=== PATIENT | male | born 1955 | race Caucasian/White ===

== ENCOUNTER → 2017-08-09 | Outpatient (CLI) | payer OTHER, SELFPAY | PROVIDERS: Visit Provider Internal Medicine | DX: I50.9 Heart failure, unspecified (principal); I25.10 Atherosclerotic heart disease of native coronary artery without angina pectoris; I42.9 Cardiomyopathy, unspecified | CPT/HCPCS: 36415; 80048 ==

== ENCOUNTER 2017-08-18 08:30 | Outpatient (RCR) | payer OTHER, SELFPAY | END 2017-08-18 23:59 | LOC: PT 08:30 | PROVIDERS: Visit Provider Internal Medicine | DX: Z95.5 Presence of coronary angioplasty implant and graft (principal) | CPT/HCPCS: 93798 ==

== ENCOUNTER → 2017-08-21 08:52 | Outpatient (CLI) | payer OTHER, SELFPAY ==
--- NOTE | 2017-08-21 09:02 | CA_ITS ---
PROCEDURE: 2-D M-mode and color Doppler study INDICATIONS FOR THE TEST: Chest pain COPD Heart Murmur Tobacco Smoking Palpitations Fatigue Syncope Edema HypertensionXDiabetes MellitusX Rheumatic Fever SOB SIMMONS Obesity HyperlipidemiaX Family History HD Additional History CAD,CM ISCHEMIC,LIFE VEST,PERICARDIAL EFF NOTED PATIENT INFORMATION HEIGHT: 68 WEIGHT:217 GENDER: Male B/P:126/70 2-D/M-MODE INTERPRETATION: 2-D MEASUREMENTS OBSERVED VALUES IN CMS Right Ventricular Dimension (RVDd) 3.1 Interventricular Septum (Thickness)(IVsd) 1.2 Left Ventricular Internal Dimensions(LVIDd) 5.1 Left Ventricular Posterior Wall (Thickness)(LVPWd) 1.2 Aortic Root 3.6 Aortic Cusp Separation 1.9 Left Atrial Dimensions (LAD) 4.3 2D 1. Left atrium is mildly enlarged, left ventricle is normal size, there is mild concentric left ventricular hypertrophy present, visually estimated ejection fraction approximately 40%, there is marked hypokinesis involving the inferolateral, posterolateral wall. 2. The right atrium and right ventricle are relatively normal size and function. 3. The aortic valve is minimally thickened and fibrosed leaflet continue to display good mobility. 4. The mitral and tricuspid valve leaflets are minimally thickened. 5. The pulmonic valve is poorly visualized. 6. There is moderate to large size pericardial effusion noted. DOPPLER INTERROGATION: Doppler interrogation of the aortic, mitral and tricuspid valvular presence of mild aortic, mild mitral and tricuspid regurgitation, tricuspid regurgitant jet velocity is insufficient for calculation of the right ventricular systolic pressure, diastolic parameters are inconclusive. Inferior vena cava is not well visualized. The mitral inflow and tricuspid inflow velocities are not adequately obtained to determine ventricular interdependence or tamponade physiology. If clinically indicated repeat study with better Doppler technique is recommended. CONCLUSION: 1. Mildly enlarged left atrium, normal left ventricular size, mild concentric left ventricular hypertrophy, visually estimated ejection fraction 40% with multiple segmental wall motion abnormality described above, diastolic parameters are inconclusive. 2. Mild aortic, mild mitral and tricuspid regurgitation. 3. Moderate to large size pericardial effusion noted, the Doppler interrogation is suboptimal to determine tamponade physiology, if clinically indicated repeat study with better Doppler technique is recommended.
== END ==
PROVIDERS: PCP Family Medicine; Visit Provider Internal Medicine
DX: I42.8 Other cardiomyopathies (principal); I25.10 Atherosclerotic heart disease of native coronary artery without angina pectoris; I10 Essential (primary) hypertension; E78.5 Hyperlipidemia, unspecified
CPT/HCPCS: 93306

== ENCOUNTER → 2017-11-17 08:27 | Outpatient (CLI) | payer OTHER, SELFPAY ==
--- NOTE | 2017-11-17 08:29 | CA_ITS ---
PROCEDURE: 2-D M-mode and color Doppler study INDICATIONS FOR THE TEST: Chest pain COPD Heart Murmur Tobacco Smoking Palpitations Fatigue Syncope Edema HypertensionXDiabetes MellitusX Rheumatic Fever SOBXDOE Obesity HyperlipidemiaX Family History HD Additional History CM PATIENT INFORMATION HEIGHT: 68 WEIGHT:222 GENDER: Male B/P:133/82 2-D/M-MODE INTERPRETATION: 2-D MEASUREMENTS OBSERVED VALUES IN CMS Right Ventricular Dimension (RVDd) 3.1 Interventricular Septum (Thickness)(IVsd) 1.2 Left Ventricular Internal Dimensions(LVIDd) 5.7 Left Ventricular Posterior Wall (Thickness)(LVPWd) 1.4 Aortic Root 3.8 Aortic Cusp Separation 2.0 Left Atrial Dimensions (LAD) 4.1 2D 1. Left atrium is mildly enlarged, left ventricle is normal size, there is mild concentric left ventricular hypertrophy, visually estimated ejection fraction of 45% with no obvious regional wall motion abnormality. 2. The right atrium and right ventricle are mildly enlarged with normal contractility 3. The aortic valve is minimally thickened and fibrosed. 4. The mitral valve has mitral annular calcification, there is no mitral stenosis 5. The pulmonic valve is not well visualized. 6. The tricuspid valve is grossly normal. 7. No significant pericardial effusion noted. DOPPLER INTERROGATION: Doppler interrogation of the aortic, mitral and tricuspid valve reveals presence of mild aortic, mild mitral and tricuspid regurgitation, tricuspid regurgitant jet velocity is insufficient for calculation of the right ventricular systolic pressure, grade 1 diastolic dysfunction seen with tissue Doppler evidence of raised left atrial pressure. CONCLUSION: 1. Mildly enlarged left atrium, normal left ventricular size, mild concentric left ventricular hypertrophy, visually estimated ejection fraction 45% with no obvious regional wall motion abnormality, grade 1 diastolic dysfunction seen with tissue Doppler evidence of raised left atrial pressure. 2. Mildly enlarged right ventricle with normal contractility. 3. Mild aortic, mild mitral and tricuspid regurgitation 4. No significant pericardial effusion noted.
== END ==
PROVIDERS: PCP Family Medicine; Visit Provider Internal Medicine
DX: I25.5 Ischemic cardiomyopathy (principal); I25.10 Atherosclerotic heart disease of native coronary artery without angina pectoris; I50.23 Acute on chronic systolic (congestive) heart failure; I10 Essential (primary) hypertension; E78.4 Other hyperlipidemia; R06.02 Shortness of breath
CPT/HCPCS: 93306

== ENCOUNTER → 2017-12-26 12:13 | Outpatient (CLI) | payer OTHER, SELFPAY ==
[2017-12-26 13:15] VITALS: BP 140/90; BP 150/93; PULSE 74; PULSE 95; RESP 16; RESP 22; O2SAT 94; O2SAT 95
[2017-12-26 13:40] VITALS: PULSE 73; PULSE 78
== END ==
PROVIDERS: PCP Family Medicine; Visit Provider Internal Medicine
DX: R06.00 Dyspnea, unspecified (principal)
CPT/HCPCS: 94060; 94618; 94640; 94726; 94729

== ENCOUNTER → 2018-01-01 15:33 | Outpatient (POV) | payer OTHER, SELFPAY | PROVIDERS: PCP Family Medicine; Visit Provider Specialist | DX: R20.0 Anesthesia of skin (principal) | CPT/HCPCS: 95886; 95909 ==

== ENCOUNTER → 2018-02-07 07:06 | Outpatient (CLI) | payer BC, SELFPAY ==
[2018-02-07 08:33] LABS: Basophils # 0.1 K/mm3 (0-0.2); Basophils % 0.9 % (0.1-2.0); Eosinophils # 0.4 K/mm3 (0.0-0.4); Eosinophils % 5.6 % (0.1-12.0); Hematocrit 57.4 % (42.0-52.0); Lymphocytes # 1.3 K/mm3 (0.7-4.5); Lymphocytes % 20.8 K/mm3 (10-50); Mean Corpuscular HGB Conc 31.5 g/dL (31.8-35.4); Mean Corpuscular Hemoglobin 28.4 pg (27.0-31.2); Mean Platelet Volume 8.8 fl (7.4-10.4); Monocytes # 0.6 K/mm3 (0.1-1.0); Monocytes % 9.2 % (1.7-9.3); Neutrophils # 3.9 K/mm3 (1.8-7.8); Neutrophils % 63.5 % (37.0-80.0); Platelet Count 184 K/mm3 (142-424); Red Blood Count 6.37 M/mm3 (4.60-6.20); Red Cell Distribution Width 14.5 % (11.5-17.5); White Blood Count 6.2 K/mm3 (4.8-10.8)
[2018-02-07 11:06] LABS: Hemoglobin 18.2 g/dL (14.1-18.0)
[2018-02-07 11:12] LABS: Alanine Aminotransferase 28 U/L (12-78); Albumin Level 3.3 gm/dL (3.4-5.0); Albumin/Globulin Ratio 1.1 (1.1-1.8); Alkaline Phosphatase 89 U/L (46-116); Anion Gap 9.7 mEq/L (5-15); Aspartate Amino Transferase 16 U/L (15-37); Bilirubin,Total 0.8 mg/dL (0.2-1.0); Blood Urea Nitrogen 18 mg/dL (7-18); Calcium 8.7 mg/dL (8.5-10.1); Carbon Dioxide 30 mmol/L (21.0-32.0); Chloride 105 mmol/L (98-107); Chol/HDL Ratio 3.3 (1-3.5); Cholesterol 127 mg/dL (140-200); Creatinine,Serum 0.72 mg/dL (0.70-1.30); Estimated Glomerular Filt Rate 110 ml/min (>60); GFR (African American) 133 ML/MIN (>60); Glucose 89 mg/dL (74-106); HDL Cholesterol 38 mg/dL (27-67); LDL Cholesterol 78 mg/dL (0-130); Potassium 4.7 mmoL/L (3.5-5.1); Prostate Specific Ag Screen 1.3 ng/mL (0.0-4.0); Sodium 140 mmol/L (136-145); Total Protein,Serum 6.3 gm/dL (6.4-8.2); Triglycerides 55 mg/dL (30-200); VLDL Cholesterol 11 mg/dL (0-40)
[2018-02-08 10:15] LABS: Creatinine, Urine 55.4 mg/dL (Not Estab.)
[2018-02-08 13:59] LABS: Microalbumin, Urine 1486.7 ug/mL (Not Estab.)
== END ==
PROVIDERS: PCP Family Medicine; Visit Provider Family Medicine
DX: E11.9 Type 2 diabetes mellitus without complications (principal); I10 Essential (primary) hypertension; E78.5 Hyperlipidemia, unspecified; I50.9 Heart failure, unspecified; Z12.5 Encounter for screening for malignant neoplasm of prostate
CPT/HCPCS: 36415; 80053; 80061; 82043; 82570; 83036; 85025; G0103

== ENCOUNTER → 2018-02-09 07:04 | Outpatient (CLI) | payer BC, SELFPAY ==
[2018-02-09 11:06] LABS: Thyroid Stimulating Hormone 2.71 uIU/ml (0.358-3.740)
== END ==
PROVIDERS: Visit Provider Family Medicine
DX: Z12.5 Encounter for screening for malignant neoplasm of prostate (principal); E11.9 Type 2 diabetes mellitus without complications; I10 Essential (primary) hypertension; E78.5 Hyperlipidemia, unspecified; I50.9 Heart failure, unspecified
CPT/HCPCS: 36415; 84443

== ENCOUNTER → 2018-03-15 09:37 | Outpatient (CLI) | payer BC, SELFPAY ==
--- NOTE | 2018-03-15 09:45 | XR_ITS ---
XR knee RT 3V HISTORY: ITS.REASON: ACUTE RT KNEE PAIN ORDERING PHYSICIAN: Alejo Busby MD PATIENT AGE: 62 years COMPARISON: None FINDINGS: Severe osteoarthritic changes involve the lateral compartment and patellofemoral joint with decrease in the joint space and osteophyte formation. Prominent osteophytes are present at the distal femur and posterior patella as well as the proximal tibia laterally. Subarticular cystic changes involve the lateral tibial plateau laterally at 2.7 cm. There is increased density in the suprapatellar region consistent with knee joint effusion. There are moderate osteoarthritic changes of the medial compartment. Mild chondrocalcinosis is present of the menisci. There is a 17 mm calcific density in the posterior popliteal fossa region laterally may be due to a loose articular body or synovial osteochondroma. No acute fracture or dislocation IMPRESSION: 1. Severe osteoarthritis with knee joint effusion and prominent osteophyte formation and chondrocalcinosis. 2. Subarticular cystic change along the lateral aspect of the proximal tibia 3. Suspected suprapatellar effusion and loose intra-articular body/synovial osteochondroma
== END ==
PROVIDERS: PCP Family Medicine; Visit Provider Family Medicine
DX: M25.561 Pain in right knee (principal)
CPT/HCPCS: 73562

== ENCOUNTER → 2018-03-28 09:45 | Outpatient (CLI) | payer BC, SELFPAY ==
[2018-03-28 10:05] LABS: Basophils % 0.6 % (0.1-2.0); Eosinophils # 0.5 K/mm3 (0.0-0.4); Eosinophils % 7.2 % (0.1-12.0); Hematocrit 52.1 % (42.0-52.0); Hemoglobin 17.2 g/dL (14.1-18.0); Lymphocytes # 1.5 K/mm3 (0.7-4.5); Lymphocytes % 22.1 K/mm3 (10-50); Mean Corpuscular HGB Conc 32.9 g/dL (31.8-35.4); Mean Corpuscular Hemoglobin 30.4 pg (27.0-31.2); Mean Corpuscular Volume 92.4 fl (80-94); Monocytes # 0.6 K/mm3 (0.1-1.0); Monocytes % 9.2 % (1.7-9.3); Neutrophils # 4.1 K/mm3 (1.8-7.8); Neutrophils % 60.8 % (37.0-80.0); Platelet Count 193 K/mm3 (142-424); Red Blood Count 5.64 M/mm3 (4.60-6.20); Red Cell Distribution Width 14.5 % (11.5-17.5); White Blood Count 6.7 K/mm3 (4.8-10.8)
== END ==
PROVIDERS: Visit Provider Physician Assistant
DX: I25.10 Atherosclerotic heart disease of native coronary artery without angina pectoris (principal); I25.5 Ischemic cardiomyopathy; I50.20 Unspecified systolic (congestive) heart failure
CPT/HCPCS: 36415; 85025

== ENCOUNTER → 2018-08-15 06:18 | Outpatient (CLI) | payer BC, SELFPAY ==
--- NOTE | 2018-08-15 06:25 | NM_ITS ---
CARDIOLITE SPECT MYOCARDIAL PERFUSION SCAN, REST AND STRESS: EXERCISE STRESS [facility] REVIEW QGS EF AND WALL MOTION EVALUATION: QPS - PERFUSION EVALUATION HISTORY: Chest pain, SOB, Fatigue, DM, CAD, Hx of [place] DOSE: 10.10 mCi technetium 99m mibi intravenously at rest followed by 32.2 mCi technetium 99m mibi following the intravenous ministration of 0.4 mg of Lexiscan. Resting blood pressure is 144/87. Stress blood pressure 144/90. FINDINGS: Ejection fraction is calculated to be 35%. There is global hypokinesia. A moderate sized reversible defect is present within the apex extending into the anterior wall. A moderate-sized reversible defect also involves the lateral wall inferiorly. A large defect is present involving the inferior wall with some mild reversibility along the inferolateral region. Fixed decrease activity is noted in the inferior wall toward the apex and in the lateral aspect of the myocardium. IMPRESSION: 1. Low ejection fraction of 35% with global hypokinesia 2. The findings consistent with ischemia with reversible defect in the apex extending into the anterior wall and reversible defect involving the lateral wall which extends into the apex. 3. Large defect in the inferior wall consistent with an area of infarction which shows some reversibility along its inferolateral margin.
--- NOTE | 2018-08-15 07:05 | HMH.ITSHM ---
Current Home Medications as stated by this patient Krish Reji Montes or food service sales representatives. []TOUERIC SYNJARDY GABAPENTIN ATORVASTATIN CLOPIDOGREL ASA CARVEDILOL
== END ==
PROVIDERS: PCP Family Medicine; Visit Provider Internal Medicine
DX: I20.9 Angina pectoris, unspecified (principal); I25.10 Atherosclerotic heart disease of native coronary artery without angina pectoris; I25.5 Ischemic cardiomyopathy; R06.02 Shortness of breath; E78.49 Other hyperlipidemia
CPT/HCPCS: 78452; 93017; 93270; A9502; J2785

== ENCOUNTER 2018-08-31 08:02 | Outpatient (RCR) | payer BC, SELFPAY | END 2018-11-07 08:38 | disposition home or self-care (01) | LOC: PT 08:02 | PROVIDERS: Visit Provider Internal Medicine | DX: I11.9 Hypertensive heart disease without heart failure (principal); I25.10 Atherosclerotic heart disease of native coronary artery without angina pectoris; I25.5 Ischemic cardiomyopathy | CPT/HCPCS: 93798 ==

== ENCOUNTER → 2018-09-25 07:44 | Outpatient (CLI) | payer BC, SELFPAY ==
--- NOTE | 2018-09-25 07:46 | NM_ITS ---
History and Indications: Coronary artery disease, diabetes, family history. Procedure: Patient exercised on Vincent protocol 7 minutes and 45 seconds, resting heart rate was 63 bpm resting blood pressure 163/90, with exercise maximum heart rate achieved was 118 bpm which is equal to 76% of the maximum] heart rate and a blood pressure was 210/90. Test was started due to shortness of breath and chest pressure. Patient has good exercise capacity achieved 10.1mets of workload on treadmill, the blood pressure response to exercise was hypertensive, patient did not achieve the target heart rate. Electrocardiogram: Resting echocardiogram showed sinus rhythm nonspecific ST-T changes consider subendocardial ischemia, with exercise there is less than 1.[address] segment depression noted from the baseline EKG. Occasional premature ventricular complexes were also present. The EKG portion of the exercise Myoview is nondiagnostic due to baseline abnormal EKG and patient not achieving the target heart rate. Cardiac stress and resting SPECT images: Cardiac stress and resting SPECT images were obtained using technetium 99 Myoview 32.2 mCi stress and 10.5 mCi at rest. Gated SPECT further analysis of segmental wall motion and calculation of the ejection fraction also done. Cardiac stress and resting SPECT images show decreased tracer activity in the anterior, anteroapical and anterolateral wall which improves on the resting images suggestive of reversible ischemia, there is a partial reversible defect involving the inferior and inferolateral wall consistent with mixed ischemia and scar. There is transient ischemic dilatation of the left ventricle seen. Computer derived ejection fraction is 39% with moderate hypokinesis involving the inferolateral and inferolateral wall. Right ventricle is normal size and contractility. Conclusion: 1. The EKG portion of the exercise Myoview is nondiagnostic due to baseline abnormal EKG and patient not achieving the target heart rate, patient has good exercise capacity achieved 10.1mets of workload on treadmill, the blood pressure response to exercise was hypertensive, test was started due to shortness of breath. 2. Scintigraphic evidence of reversible ischemia involving the anteroapical, apex and anterolateral wall, partially reversible fixed defect involving the inferolateral and inferior wall, there is transient ischemic dilatation of the left ventricle, computer derived ejection fraction is 39% with multiple segmental wall motion abnormality described above, right ventricle is normal size and contractility. 3. Abnormal exercise Myoview study.
--- NOTE | 2018-09-25 08:16 | HMH.ITSHM ---
Current Home Medications as stated by this patient Krish Reji Montes or brewery representative. []SACUBITRIL INSULIN CLOPIDOGREL CARVEDILOL CANAGLIFLOZIN ATORVASTATIN ASA
== END ==
PROVIDERS: PCP Family Medicine; Visit Provider Internal Medicine
DX: R06.02 Shortness of breath (principal); R53.83 Other fatigue; I25.5 Ischemic cardiomyopathy; I50.23 Acute on chronic systolic (congestive) heart failure; E11.9 Type 2 diabetes mellitus without complications; E78.49 Other hyperlipidemia; I10 Essential (primary) hypertension; I25.10 Atherosclerotic heart disease of native coronary artery without angina pectoris
CPT/HCPCS: 78452; 93017; A9502

== ENCOUNTER → 2018-10-15 07:10 | Outpatient (CLI) | payer BC, SELFPAY ==
[2018-10-15 08:02] LABS: Anion Gap 13.1 mEq/L (5-15); Blood Urea Nitrogen 17 mg/dL (7-18); Calcium 9.1 mg/dL (8.5-10.1); Carbon Dioxide 32 mmol/L (21.0-32.0); Chloride 104 mmol/L (98-107); Creatinine,Serum 1.18 mg/dL (0.70-1.30); Estimated Glomerular Filt Rate 62 ml/min (>60); GFR (African American) 75 ML/MIN (>60); Glucose 143 mg/dL (74-106); Potassium 4.1 mmoL/L (3.5-5.1); Sodium 145 mmol/L (136-145)
== END ==
PROVIDERS: Visit Provider Urology
DX: R06.02 Shortness of breath (principal); E11.9 Type 2 diabetes mellitus without complications; E78.49 Other hyperlipidemia; I10 Essential (primary) hypertension; I11.0 Hypertensive heart disease with heart failure; I25.10 Atherosclerotic heart disease of native coronary artery without angina pectoris; I25.5 Ischemic cardiomyopathy; I50.23 Acute on chronic systolic (congestive) heart failure
CPT/HCPCS: 36415; 80048

== ENCOUNTER → 2018-10-16 07:37 | Outpatient (CLI) | payer BC, SELFPAY ==
--- NOTE | 2018-10-16 07:38 | CA_ITS ---
PROCEDURE: 2-D M-mode and color Doppler study INDICATIONS FOR THE TEST: Chest pain COPD Heart Murmur Tobacco Smoking Palpitations Fatigue Syncope Edema Hypertension+Diabetes Mellitus+ Rheumatic Fever SOB+SIMMONS Obesity Hyperlipidemia+ Family History HD Additional History CAD, CHF, CVA PATIENT INFORMATION HEIGHT: 68 WEIGHT:228 GENDER: Male B/P:147/95 2-D/M-MODE INTERPRETATION: 2-D MEASUREMENTS OBSERVED VALUES IN CMS Right Ventricular Dimension (RVDd) 3.8 Interventricular Septum (Thickness)(IVsd) 1.7 Left Ventricular Internal Dimensions(LVIDd) 4.4 Left Ventricular Posterior Wall (Thickness)(LVPWd) 1.1 Aortic Root 3.7 Aortic Cusp Separation 2.3 Left Atrial Dimensions (LAD) 4.6 2D 1. Left atrium is mildly enlarged, left ventricle is normal size, mild concentric left ventricular hypertrophy, visually estimated ejection fraction approximately 45-50%, there is moderate hypokinesis involving the inferior and inferobasal wall. 2. The right atrium and right ventricle are mildly enlarged with normal contractility. 3. The aortic valve is thickened and calcified leaflet continue to display mobility. 4. The mitral and tricuspid valve are minimally thickened. 5. The pulmonic valve is poorly present. 6. No significant pericardial effusion noted. DOPPLER INTERROGATION: Doppler interrogation of the aortic, mitral and tricuspid valvular presence of mild aortic, mild mitral and tricuspid regurgitation, tricuspid regurgitation jet velocity is inadequate for calculation of the right ventricular systolic pressure, grade 1 diastolic dysfunction seen with tissue Doppler evidence of raised left atrial pressure. CONCLUSION: 1. Mild biatrial enlargement, normal left ventricular size, mild concentric left ventricular hypertrophy, visually estimated ejection fraction of 45-50% with segmental wall motion abnormality described above, grade 1 diastolic dysfunction seen with tissue Doppler evidence of raised left atrial pressure. 2. Mildly enlarged right ventricle with normal contractility. 3. Mild aortic, mild mitral and tricuspid regurgitation 4. No significant pericardial effusion noted.
== END ==
PROVIDERS: PCP Family Medicine; Visit Provider Internal Medicine
DX: R06.02 Shortness of breath (principal); I25.5 Ischemic cardiomyopathy; I50.23 Acute on chronic systolic (congestive) heart failure; E11.9 Type 2 diabetes mellitus without complications; E78.49 Other hyperlipidemia; I10 Essential (primary) hypertension; I11.0 Hypertensive heart disease with heart failure; I25.10 Atherosclerotic heart disease of native coronary artery without angina pectoris; Z79.4 Long term (current) use of insulin; Z79.84 Long term (current) use of oral hypoglycemic drugs; Z87.891 Personal history of nicotine dependence
CPT/HCPCS: 93306

== ENCOUNTER → 2018-11-19 08:41 | Outpatient (CLI) | payer BC, SELFPAY | PROVIDERS: PCP Family Medicine; Visit Provider Nurse Practitioner Family | DX: G47.33 Obstructive sleep apnea (adult) (pediatric) (principal); R40.0 Somnolence; R53.83 Other fatigue; R06.00 Dyspnea, unspecified; I11.9 Hypertensive heart disease without heart failure; I25.10 Atherosclerotic heart disease of native coronary artery without angina pectoris | CPT/HCPCS: 95806 ==

== ENCOUNTER → 2019-03-20 06:59 | Outpatient (CLI) | payer MEDICARE, OTHER, SELFPAY ==
[2019-03-20 08:09] LABS: Alanine Aminotransferase 39 U/L (12-78); Albumin Level 3.6 gm/dL (3.4-5.0); Albumin/Globulin Ratio 1.2 (1.1-1.8); Alkaline Phosphatase 89 U/L (46-116); Anion Gap 11.1 mEq/L (5-15); Aspartate Amino Transferase 13 U/L (15-37); Bilirubin,Total 0.7 mg/dL (0.2-1.0); Blood Urea Nitrogen 19 mg/dL (7-18); Calcium 8.8 mg/dL (8.5-10.1); Carbon Dioxide 29 mmol/L (21.0-32.0); Chloride 104 mmol/L (98-107); Chol/HDL Ratio 3.7 (1-3.5); Cholesterol 138 mg/dL (140-200); Creatinine,Serum 0.92 mg/dL (0.70-1.30); Estimated Glomerular Filt Rate 83 ml/min (>60); GFR (African American) 100 ML/MIN (>60); Globulin 3.1 gm/dl (1.3-3.2); Glucose 74 mg/dL (74-106); HDL Cholesterol 37 mg/dL (27-67); LDL Cholesterol 79 mg/dL (0-130); Magnesium 1.9 mg/dL (1.4-2.2); Phosphorous 2.9 mg/dL (2.4-4.9); Potassium 4.1 mmoL/L (3.5-5.1); Prostate Specific Ag Screen 1.6 ng/mL (0.0-4.0); Sodium 140 mmol/L (136-145); Thyroid Stimulating Hormone 1.96 uIU/ml (0.358-3.740); Total Protein,Serum 6.7 gm/dL (6.4-8.2); Triglycerides 108 mg/dL (30-200); VLDL Cholesterol 22 mg/dL (0-40)
[2019-03-20 09:02] LABS: Hemoglobin A1C 7.4 % (0.0-7.0)
[2019-03-20 16:23] LABS: Creatinine,Urine Random 13 mg/dL (20-320)
[2019-03-22 06:12] LABS: Vitamin B12 265 pg/mL (232-1245)
[2019-03-22 06:13] LABS: Vitamin D 25 Hydroxy 36.9 ng/mL (30.0-100.0)
[2019-03-22 06:14] LABS: Folate 10.5 ng/mL (>3.0); Microalbumin, Urine 207.1 ug/mL (Not Estab.)
== END ==
PROVIDERS: Visit Provider Family Medicine
DX: E11.9 Type 2 diabetes mellitus without complications (principal); R53.83 Other fatigue; E78.5 Hyperlipidemia, unspecified; Z12.5 Encounter for screening for malignant neoplasm of prostate; Z79.4 Long term (current) use of insulin
CPT/HCPCS: 36415; 80053; 80061; 82043; 82570; 82607; 82652; 82746; 83036; 83735; 84100; 84443; G0103

== ENCOUNTER 2019-04-09 11:06 | Inpatient (IN) ==
[2019-04-09 10:14] LABS: Anion Gap 10.3 mEq/L (5-15); Calcium 9.4 mg/dL (8.5-10.1)
[2019-04-09 11:56] LABS: Basophils % 0.4 % (0.1-2.0); Eosinophils # 0.1 K/mm3 (0.0-0.4); Eosinophils % 0.6 % (0.1-12.0); Hematocrit 55.7 % (42.0-52.0); Lymphocytes # 1.2 K/mm3 (0.7-4.5); Lymphocytes % 12.9 % (10-50); Mean Corpuscular HGB Conc 32.4 g/dL (31.8-35.4); Mean Corpuscular Volume 95.5 fl (80-94); Mean Platelet Volume 8.5 fl (7.4-10.4); Monocytes # 0.4 K/mm3 (0.1-1.0); Monocytes % 3.9 % (1.7-9.3); Neutrophils # 7.8 K/mm3 (1.8-7.8); Neutrophils % 82.3 % (37.0-80.0); Platelet Count 235 K/mm3 (142-424); Red Blood Count 5.83 M/mm3 (4.60-6.20); Red Cell Distribution Width 13.8 % (11.5-17.5); White Blood Count 9.5 K/mm3 (4.8-10.8)
--- NOTE | 2019-04-09 13:59 | Progress Note ---
Subjective Date: 04/09/19 Time: 13:55 Principal diagnosis: NSTEMI Interval history: 63-year-old white male with known coronary artery disease for which medical therapy recommended presented to the office today for evaluation of recurrent episodes of severe diaphoresis associated with shortness of breath and weakness. EKG showed no acute change, limited echocardiogram showed ejection fraction 45- 50% but lab work revealed mildly elevated troponin at 0.2. It was felt that the patient has recently suffered a non-ST elevation NH within the last 2 days and had failed outpatient medical therapy for his coronary artery disease. It was decided to send him to the cardiac [facility] to attempt stenting of his diagonal artery in light of his recurrent symptoms and elevated troponin. Patient appeared very pale and weak and was still wet with sweat at the time of office evaluation. Exam Vital signs and Labs for Last 24 Hours: Temp Pulse Resp BP Pulse Ox 98.1 F 54 L 20 185/107 H 100 04/09/19 11:13 04/09/19 11:13 04/09/19 11:13 04/09/19 11:13 04/09/19 11:13 Laboratory Results - last 24 hr 04/09/19 09:45: Sodium 139, Potassium 4.3, Chloride 103, Carbon Dioxide 30, Anion Gap 10.3, BUN 20 H, Creatinine 0.83, Estimated Creat Clear 107, Estimated GFR 93, Est GFR ( Amer) 113, Glucose 85, Calcium 9.4, Troponin I 0.20 H 04/09/19 09:45: B-Natriuretic Peptide 62 04/09/19 11:25: WBC 9.5, RBC 5.83, Hgb 18.0, Hct 55.7 H, MCV 95.5 H, MCH 30.9, MCHC 32.4, RDW 13.8, Plt Count 235, MPV 8.5, Neut % (Auto) 82.3 H, Lymph % (Auto) 12.9, [place] % (Auto) 3.9, Eos % (Auto) 0.6, Baso % (Auto) 0.4, Neut # (Auto) 7.8, Lymph # (Auto) 1.2, [place] # (Auto) 0.4, Eos # (Auto) 0.1, Baso # (Auto) 0.0 I & O for Last 24 hours: Intake & Output 08/2504/08/19 04/09/19 04/10/19 11:59 11:59 11:59 11:59 Weight 228 lb 13.437 oz - *Routine HEENT Exam Head: Present: normocephalic Eye: Present: EOMI, PERRL ENT: Present: mucous membranes moist - *Routine Respiratory Exam Present: CTA bilaterally. Absent: accessory muscle use, rales, rhonchi, wheezes - *Routine Cardiovascular Exam Present: RRR. Absent: murmur, gallop, rubs - *Routine Abdominal Exam Present: soft. Absent: tenderness, distended, guarding - *Routine Extremities Exam Absent: edema, calf tenderness - *Routine Neurological Exam Present: alert, oriented X3, moving all extremities Progress Note: A&P (1) Non-ST elevation NH (NSTEMI) Status: Acute Current Visit: Yes (2) Dyspnea Status: Chronic Current Visit: No (3) Fatigue Status: Chronic Current Visit: No (4) Hyperlipidemia Status: Chronic Current Visit: No (5) Hypertensive disorder Status: Chronic Current Visit: No (6) Ischemic cardiomyopathy Status: Chronic Current Visit: No (7) JARON (obstructive sleep apnea) Status: Chronic Current Visit: No Assessment and Plan for All Diagnoses:: 1. Continue dual antiplatelet therapy with aspirin 81 mg daily and Plavix 75 mg daily 2. Regarding his ischemic cardiomyopathy, continue Entresto 97-103 mg twice daily and Coreg 25 mg twice daily and Lasix 40 mg daily 3. Regarding hyperlipidemia, continue atorvastatin 80 mg daily 4. Observe overnight with tentative plans to discharge home tomorrow if stable.
--- NOTE | 2019-04-09 15:29 | Pharmacy Consult Notes ---
[facility] Pharmacy VTE Monitoring - Patient Demographics Admission date: 04/09/19 Report Date: 04/09/19 Time: 15:29 Allergies/Adverse Reactions: Patient Allergies No Known Allergies Allergy (Verified 04/09/19 08:49) Height: 1.73 m Weight: 102.965 kg Patient Problems: Current Active Problems Non-ST elevation CO (NSTEMI) (Acute) - VTE Risk Labs: VTE Related Lab Results Hgb 18.0 g/dL (14.1-18.0) 04/09/19 11:25 Hct 55.7 % (42.0-52.0) H 04/09/19 11:25 Plt Count 235 K/mm3 (142-424) 04/09/19 11:25 BUN 20 mg/dL (7-18) H 04/09/19 09:45 Creatinine 0.83 mg/dL (0.70-1.30) 04/09/19 09:45 Estimated Creat Clear 107 mL/min (50-200) 04/09/19 09:45 Was VTE Risk Assessment Performed: Yes VTE Score: 3 VTE Risk Level: Low Risk - Prophylaxis VTE Prophylaxis Ordered?: Yes Types of VTE Prophylaxis: TEDS Knee High Location of Applied Device: Bilateral Lower Extremeties
--- NOTE | 2019-04-09 16:50 | Progress Note ---
Internal Medicine - PN: Subj *Date: 04/09/19 *Time: 16:47 Interval history: Called by cardiology today about patient that was seen in their office with a NSTEMI that was going directly to the labor custodian and needed admission for observation after the procedure. Pt reportedly had one stent placed and had several areas treated with balloon angioplasty. He is resting in bed now with family at his side. Exam Vital signs and Labs for Last 24 Hours: Temp Pulse Resp BP Pulse Ox 97.7 F 74 20 110/75 95 04/09/19 14:50 04/09/19 16:00 04/09/19 16:00 04/09/19 16:00 04/09/19 16:00 Laboratory Results - last 24 hr 04/09/19 09:45: Sodium 139, Potassium 4.3, Chloride 103, Carbon Dioxide 30, Anion Gap 10.3, BUN 20 H, Creatinine 0.83, Estimated Creat Clear 107, Estimated GFR 93, Est GFR ( Amer) 113, Glucose 85, Calcium 9.4, Troponin I 0.20 H 04/09/19 09:45: B-Natriuretic Peptide 62 04/09/19 11:25: WBC 9.5, RBC 5.83, Hgb 18.0, Hct 55.7 H, MCV 95.5 H, MCH 30.9, MCHC 32.4, RDW 13.8, Plt Count 235, MPV 8.5, Neut % (Auto) 82.3 H, Lymph % (Auto) 12.9, [place] % (Auto) 3.9, Eos % (Auto) 0.6, Baso % (Auto) 0.4, Neut # (Auto) 7.8, Lymph # (Auto) 1.2, [place] # (Auto) 0.4, Eos # (Auto) 0.1, Baso # (Auto) 0.0 04/09/19 12:26: Activated Clotting Time > 400 H* 04/09/19 13:01: Activated Clotting Time 338 H* 04/09/19 16:09: POC Glucose 148 H I & O for Last 24 hours: Intake & Output 04/06/19 04/07/19 04/08/19 04/09/19 23:59 23:59 23:59 23:59 Intake Total 120 / 120 Balance 120 / 120 Weight 227 lb - Constitutional no acute distress - *Routine HEENT Exam Head: Present: normocephalic Eye: Present: EOMI, PERRL ENT: Present: mucous membranes moist - *Routine Neck Exam Present: supple. Absent: lymphadenopathy - *Routine Abdominal Exam Present: soft. Absent: tenderness - *Routine Extremities Exam Absent: cyanosis, clubbing, edema - *Routine Skin Exam Present: warm. Absent: rash - *Routine Neurological Exam Present: alert, oriented X3 Assessment and Plan (1) Non-ST elevation ID (NSTEMI) Current visit: Yes Status: Acute Category: Medical Code(s): I21.4 - Non-ST elevation (NSTEMI) myocardial infarction (2) Dyspnea Current visit: No Status: Chronic Qualifiers: Dyspnea type: shortness of breath Qualified Code(s): R06.02 - Shortness of breath Category: Medical Code(s): R06.00 - Dyspnea, unspecified (3) Fatigue Current visit: No Status: Chronic Qualifiers: Fatigue type: unspecified Qualified Code(s): R53.83 - Other fatigue Category: Medical Code(s): R53.83 - Other fatigue (4) Hyperlipidemia Current visit: No Status: Chronic Qualifiers: Hyperlipidemia type: other hyperlipidemia Category: Medical Code(s): E78.5 - Hyperlipidemia, unspecified (5) Hypertensive disorder Current visit: No Status: Chronic Qualifiers: Hypertension type: essential hypertension Qualified Code(s): I10 - Essential (primary) hypertension Category: Medical Code(s): I10 - Essential (primary) hypertension (6) Ischemic cardiomyopathy Current visit: No Status: Chronic Category: Medical Code(s): I25.5 - Ischemic cardiomyopathy (7) JARON (obstructive sleep apnea) Current visit: No Status: Chronic Category: Medical Code(s): G47.33 - Obstructive sleep apnea (adult) (pediatric) (8) Coronary arteriosclerosis Current visit: No Status: Chronic Category: Medical Code(s): I25.10 - Atherosclerotic heart disease of [place] coronary artery without angina pectoris (9) Diabetes Current visit: No Status: Chronic Qualifiers: Diabetes mellitus type: type 2 Diabetes mellitus chcf insulin use: with termite helper use Diabetes mellitus complication status: without complication Qualified Code(s): E11.9 - Type 2 diabetes mellitus without complications; Z79.4 - skilled nursing (current) use of insulin Category: Medical Code(s): E11.9 - Type 2 diabetes mellitus without complications - Assessment and plan all Dx Assessment and Plan for all problems:: Continue current treatment, echo report pending.
--- NOTE | 2019-04-09 17:10 | History & Physical Report ---
*Admission Date: 04/09/19 <Darya Nixon 04/09/19 17:10> *Chief complaint: Cardiac symptoms <Darya Nixon 04/09/19 17:33> *History of present illness: Mr. Montes is a 63-year-old white male with history of type 2 diabetes mellitus, hyperlipidemia, hypertension, neuropathy, and known coronary artery disease for which medical therapy has been recommended. He presented to the cardiology office today for evaluation of recurrent episodes of severe diaphoresis associated with shortness of breath and weakness. EKG showed no acute change. Limited echocardiogram showed ejection fraction 45-50% but lab work revealed mildly elevated troponin at 0.2. It was felt that the patient had recently suffered a non-ST elevation ND within the last 2 days and had failed outpatient medical therapy for his coronary artery disease. It was decided to send him to the cardiac [facility] to attempt stenting of his diagonal artery in light of his recurrent symptoms and elevated troponin. Patient appeared very pale and weak and was still wet with sweat at the time of office evaluation. Dr. Busby was called by cardiology about this patient who was seen in their office with a NSTEMI that was going directly to the catheterization laboratory technician and needed admission for observation after the procedure. Pt reportedly had one stent placed and had several areas treated with balloon angioplasty. He is resting in bed now with family at his side. <Corie Nixonhy 04/09/19 17:35> [facility] History Medical History: Reports:: Atherosclerotic Heart Disease, Cardiomyopathy, Congestive Heart Failure, Coronary Artery Disease, Diabetes Mellitus Type 2, Hyperlipidemia, Hypertension, Myocardial Infarction Denies:: Cancer, Diabetes Mellitus Type 1, Internal Pacemaker, MRSA, Seizures <HussainDarya 04/09/19 17:33> *Have you ever received a pneumonia vaccine?: Yes <Darya Nixon 04/09/19 17:10> *Have you received a flu vaccine this season?: Yes <Darya Nixon 04/09/19 17:10> Laterality Cases: Right: Arthroscopy Knee <Darya Nixon 04/09/19 17:10> Other Surgeries: Yes: Cardiac Catheterization, Coronary Stent, Other. No: Pacemaker <Darya Nixon 04/09/19 17:10> Amputation: No <Darya Nixon 04/09/19 17:10> Fractures: No <Darya Nixon 04/09/19 17:10> - *Social History Smoking Status: Former smoker <Darya Nixon 04/09/19 17:10> # Packs/Day (cigarettes): 1 <Darya Nixon 04/09/19 17:10> Alcohol Intake: never <Darya Nixon 04/09/19 17:10> Alcohol Intake Frequency:: other <Darya Nixon 04/09/19 17:10> Substance Use Type: denies use <Darya Nixon 04/09/19 17:10> *Occupational Status:: employed <Darya Nixon 04/09/19 17:10> Housing: house <Darya Nixon 04/09/19 17:10> Household Members: spouse <Darya Nixon 04/09/19 17:10> *Travel in the last 8 weeks: None <Darya Nixon 04/09/19 17:10> - Psychiatric History Expresses thoughts of harming self/others: None <Darya Nixon 04/09/19 17:10> Suicide Plan Description: No Plan <Darya Nixon 04/09/19 17:10> Family Hx:: Coronary Artery Disease <Darya Nixon 04/09/19 17:10> Review of Systems - Constitutional Reports excessive sweating, Reports fatigue, Reports lack of energy, Denies fever(s) <Darya Nixon 04/09/19 17:33> - Eyes Denies change in vision <Darya Nixon 04/09/19 17:33> - ENT Denies ear pain, Denies sore throat <Darya Nixon 04/09/19 17:33> - *Cardiovascular Reports chest pain, Reports excessive sweating, Reports shortness of breath, Denies generalized swelling, Denies irregular heart rhythm, Denies leg swelling <Darya Nixon 04/09/19 17:33> - *Respiratory Reports shortness of breath, Denies chest congestion, Denies cough, Denies coughing up blood <Darya Nixon 04/09/19 17:33> - *Gastrointestinal Denies abdominal pain, Denies change in bowel habits, Denies change in stools, Denies coffee ground vomit, Denies constipation, Denies heartburn, Denies vomiting blood, Denies bright, red blood in stools, Denies nausea, Denies vomiting <Darya Nixon - 04/09/19 17:33> - *Genitourinary Denies difficulty urinating <Darya Nixon 04/09/19 17:33> - *Musculoskeletal Reports joint pain, Denies abnormal walking <NixonDarya 04/09/19 17:33> - *Neurologic Reports headache(s), Denies abnormal walking <NixonDarya - 04/09/19 17:33> Meds Home Medications Medication Instructions Recorded Confirmed Type aspirin 81 mg tablet,delayed 81 mg PO QDAY 08/15/17 04/09/19 History release atorvastatin 80 mg tablet 80 mg PO QDAY 08/15/17 04/09/19 History insulin glargine (U-300) conc. 300 75 unit SUB-Q ONCE ml 08/15/17 04/09/19 History unit/mL (1.5 mL) subcutaneous pen Clopidogrel Bisulfate [Plavix 75mg 75 mg PO DAILY 04/09/19 04/09/19 History Tab] Empagliflozin/Metformin HCl 2 tab PO DAILY 04/09/19 04/09/19 History [Synjardy Xr 12.5-1,000 mg Tab] Furosemide [Furosemide 40MG tAB] 40 mg PO BID 04/09/19 04/09/19 History Gabapentin [Gabapentin 300mg Cap] 1 cap PO BID 04/09/19 04/09/19 History Sacubitril/Valsartan [Entresto] 1 tab PO BID 04/09/19 04/09/19 History carvedilol 12.5 mg tablet 25 mg PO BID tab 04/09/19 04/09/19 History <Alejo Busby - 04/10/19 08:08> Allergies Allergy/AdvReac Type Severity Reaction Status Date / Time No Known Allergies Allergy Verified 04/09/19 08:49 <Alejo Busby - 04/10/19 08:08> Exam Vital signs and Labs for Last 24 Hours: Temp Pulse Resp BP Pulse Ox 97.7 F 96 H 18 102/72 L 95 04/10/19 04:00 04/10/19 06:00 04/10/19 06:00 04/10/19 06:00 04/10/19 06:00 Laboratory Results - last 24 hr 04/09/19 09:45: Sodium 139, Potassium 4.3, Chloride 103, Carbon Dioxide 30, Anion Gap 10.3, BUN 20 H, Creatinine 0.83, Estimated Creat Clear 107, Estimated GFR 93, Est GFR ( Amer) 113, Glucose 85, Calcium 9.4, Troponin I 0.20 H 04/09/19 09:45: B-Natriuretic Peptide 62 04/09/19 11:25: WBC 9.5, RBC 5.83, Hgb 18.0, Hct 55.7 H, MCV 95.5 H, MCH 30.9, MCHC 32.4, RDW 13.8, Plt Count 235, MPV 8.5, Neut % (Auto) 82.3 H, Lymph % (Auto) 12.9, [place] % (Auto) 3.9, Eos % (Auto) 0.6, Baso % (Auto) 0.4, Neut # (Auto) 7.8, Lymph # (Auto) 1.2, [place] # (Auto) 0.4, Eos # (Auto) 0.1, Baso # (Auto) 0.0 04/09/19 12:26: Activated Clotting Time > 400 H* 04/09/19 13:01: Activated Clotting Time 338 H* 04/09/19 16:09: POC Glucose 148 H 04/09/19 21:13: POC Glucose 195 H 04/10/19 06:14: POC Glucose 222 H <QiAlejo - 04/10/19 08:08> Temp Pulse Resp BP Pulse Ox 97.7 F 74 20 110/75 95 04/09/19 14:50 04/09/19 16:00 04/09/19 16:00 04/09/19 16:00 04/09/19 16:00 Laboratory Results - last 24 hr 04/09/19 09:45: Sodium 139, Potassium 4.3, Chloride 103, Carbon Dioxide 30, Anion Gap 10.3, BUN 20 H, Creatinine 0.83, Estimated Creat Clear 107, Estimated GFR 93, Est GFR ( Amer) 113, Glucose 85, Calcium 9.4, Troponin I 0.20 H 04/09/19 09:45: B-Natriuretic Peptide 62 04/09/19 11:25: WBC 9.5, RBC 5.83, Hgb 18.0, Hct 55.7 H, MCV 95.5 H, MCH 30.9, MCHC 32.4, RDW 13.8, Plt Count 235, MPV 8.5, Neut % (Auto) 82.3 H, Lymph % (Auto) 12.9, [place] % (Auto) 3.9, Eos % (Auto) 0.6, Baso % (Auto) 0.4, Neut # (Auto) 7.8, Lymph # (Auto) 1.2, [place] # (Auto) 0.4, Eos # (Auto) 0.1, Baso # (Auto) 0.0 04/09/19 12:26: Activated Clotting Time > 400 H* 04/09/19 13:01: Activated Clotting Time 338 H* 04/09/19 16:09: POC Glucose 148 H <Darya Nixon - 04/09/19 17:10> I & O for Last 24 hours: Intake & Output 04/07/19 04/08/19 04/09/19 04/10/19 23:59 23:59 23:59 23:59 Intake Total 360 / 360 720 / 720 Balance 360 / 360 720 / 720 Weight 227 lb 220 lb 5 oz <Nutley,Alejo - 04/10/19 08:08> Intake & Output 04/07/19 04/08/19 04/09/19 04/10/19 11:59 11:59 11:59 11:59 Intake Total 120 / 120 Balance 120 / 120 Weight 228 lb 13.437 oz 227 lb <Darya Nixon - 04/09/19 17:10> Radiology Reports for the Last 24 Hours: 04/09/2019 left heart cath IMPRESSION Acutely elevated troponin consistent with acute coronary syndrome/non-ST elevation myocardial infarction Successful drug-eluting stent deployment to the ostial proximal first diagonal artery as described above followed by successful angioplasty to the proximal LAD Mild left ventricular dilatation with mildly reduced ejection fraction Mildly elevated LVEDP <Darya Nixon - 04/09/19 17:33> - Constitutional no acute distress <Darya Nixon 04/09/19 17:33> Comments: Family members at bedside. Appears comfortable <Darya Nixon 04/09/19 17:33> - *Routine HEENT Exam Head: Present: normocephalic, atraumatic <[facility] 04[facility]09[facility]19 17:33> Eye: Present: PERRL. Absent: conjunctival icterus, scleral injection <Darya Nixon 04/09/19 17:33> ENT: Present: mucous membranes moist, oropharynx clear <[facility] 04/09/19 17:33> - *Routine Neck Exam Present: supple. Absent: carotid bruit, lymphadenopathy, thyromegaly <[facility] 04/09/19 17:33> - *Routine Respiratory Exam Present: CTA bilaterally <Nixon,Darya - 04/09/19 17:33> - *Routine Cardiovascular Exam Present: RRR <[facility] 04/09/19 17:33> Comments: Monitor showing sinus rhythm without ectopy <[facility] 04/09/19 17:33> - *Routine Abdominal Exam Present: soft, normoactive bowel sounds. Absent: tenderness <[facility] 04/09/19 17:33> - *Routine Extremities Exam Absent: edema (MINERVA holes on) <[facility] 04/09/19 17:33> - *Routine Neurological Exam Present: alert, oriented X3 <[facility] 04/09/19 17:33> Assessment and Plan (1) Non-ST elevation ND (NSTEMI) Current visit: Yes Status: Acute Category: Medical Code(s): I21.4 - Non-ST elevation (NSTEMI) myocardial infarction (2) Dyspnea Current visit: No Status: Chronic Qualifiers: Dyspnea type: shortness of breath Qualified Code(s): R06.02 - Shortness of breath Category: Medical Code(s): R06.00 - Dyspnea, unspecified (3) Fatigue Current visit: No Status: Chronic Qualifiers: Fatigue type: unspecified Qualified Code(s): R53.83 - Other fatigue Category: Medical Code(s): R53.83 - Other fatigue (4) Hyperlipidemia Current visit: No Status: Chronic Qualifiers: Hyperlipidemia type: other hyperlipidemia Qualified Code(s): E78.49 - Other hyperlipidemia; E78.4 - Other hyperlipidemia Category: Medical Code(s): E78.5 - Hyperlipidemia, unspecified (5) Hypertensive disorder Current visit: No Status: Chronic Qualifiers: Hypertension type: essential hypertension Qualified Code(s): I10 - Essential (primary) hypertension Category: Medical Code(s): I10 - Essential (primary) hypertension (6) Ischemic cardiomyopathy Current visit: No Status: Chronic Category: Medical Code(s): I25.5 - Ischemic cardiomyopathy (7) JARON (obstructive sleep apnea) Current visit: No Status: Chronic Category: Medical Code(s): G47.33 - Obstructive sleep apnea (adult) (pediatric) (8) Coronary arteriosclerosis Current visit: No Status: Chronic Category: Medical Code(s): I25.10 - Atherosclerotic heart disease of [place] coronary artery without angina pectoris (9) Diabetes Current visit: No Status: Chronic Qualifiers: Diabetes mellitus type: type 2 Diabetes mellitus tank terminal gauger insulin use: with tank terminal gauger use Diabetes mellitus complication status: without complication Qualified Code(s): E11.9 - Type 2 diabetes mellitus without complications; Z79.4 - longterm (current) use of insulin Category: Medical Code(s): E11.9 - Type 2 diabetes mellitus without complications <Alejo Busby - 04/10/19 08:08> (1) Non-ST elevation ND (NSTEMI) Current visit: Yes Status: Acute Category: Medical Code(s): I21.4 - Non-ST elevation (NSTEMI) myocardial infarction (2) Dyspnea Current visit: No Status: Chronic Qualifiers: Dyspnea type: shortness of breath Qualified Code(s): R06.02 - Shortness of breath Category: Medical Code(s): R06.00 - Dyspnea, unspecified (3) Fatigue Current visit: No Status: Chronic Qualifiers: Fatigue type: unspecified Qualified Code(s): R53.83 - Other fatigue Category: Medical Code(s): R53.83 - Other fatigue (4) Hyperlipidemia Current visit: No Status: Chronic Qualifiers: Hyperlipidemia type: other hyperlipidemia Qualified Code(s): E78.49 - Other hyperlipidemia; E78.4 - Other hyperlipidemia Category: Medical Code(s): E78.5 - Hyperlipidemia, unspecified (5) Hypertensive disorder Current visit: No Status: Chronic Qualifiers: Hypertension type: essential hypertension Qualified Code(s): I10 - Essential (primary) hypertension Category: Medical Code(s): I10 - Essential (primary) hypertension (6) Ischemic cardiomyopathy Current visit: No Status: Chronic Category: Medical Code(s): I25.5 - Ischemic cardiomyopathy (7) JARON (obstructive sleep apnea) Current visit: No Status: Chronic Category: Medical Code(s): G47.33 - Obstructive sleep apnea (adult) (pediatric) (8) Coronary arteriosclerosis Current visit: No Status: Chronic Category: Medical Code(s): I25.10 - Atherosclerotic heart disease of [place] coronary artery without angina pectoris (9) Diabetes Current visit: No Status: Chronic Qualifiers: Diabetes mellitus type: type 2 Diabetes mellitus skilled nursing insulin use: with tank terminal gauger use Diabetes mellitus complication status: without complication Qualified Code(s): E11.9 - Type 2 diabetes mellitus without complications; Z79.4 - longterm (current) use of insulin Category: Medical Code(s): E11.9 - Type 2 diabetes mellitus without complications <Darya Nixon - 04/09/19 17:34> - Assessment and plan all Dx Assessment and Plan for all problems:: Saw patient, agree with above note. <Alejo Busby - 04/10/19 08:08> As per cardiology: 1. Continue dual antiplatelet therapy with aspirin 81 mg daily and Plavix 75 mg daily 2. Regarding his ischemic cardiomyopathy, continue Entresto 97-103 mg twice daily and Coreg 25 mg twice daily and Lasix 40 mg daily 3. Regarding hyperlipidemia, continue atorvastatin 80 mg daily 4. Observe overnight with tentative plans to discharge home tomorrow if stable. <Darya Nixon - 04/09/19 17:34>
--- NOTE | 2019-04-10 08:16 | Progress Note ---
<Darya Nixon - Last Filed: 04/10/19 08:13> Internal Medicine - PN: Subj *Date: 04/10/19 *Time: 08:13 Interval history: Patient relates that he had a bad night last night. He states he had chest pain ongoing after the cath. He then became diaphoretic to the point where he had to have his linens changed. He also got nauseated and vomited around 2:30 AM. After this he was able to rest some. He had a little bit of breakfast this morning and tolerated. He has been up to the bathroom and bowels have moved. He states he continues to have some chest discomfort but nothing like it was last night. Pain does increase when he takes a deep breath. He denies short ness of breath at present. Exam Vital signs and Labs for Last 24 Hours: Temp Pulse Resp BP Pulse Ox 97.7 F 96 H 18 102/72 L 95 04/10/19 04:00 04/10/19 06:00 04/10/19 06:00 04/10/19 06:00 04/10/19 06:00 Laboratory Results - last 24 hr 04/09/19 09:45: Sodium 139, Potassium 4.3, Chloride 103, Carbon Dioxide 30, Anion Gap 10.3, BUN 20 H, Creatinine 0.83, Estimated Creat Clear 107, Estimated GFR 93, Est GFR ( Amer) 113, Glucose 85, Calcium 9.4, Troponin I 0.20 H 04/09/19 09:45: B-Natriuretic Peptide 62 04/09/19 11:25: WBC 9.5, RBC 5.83, Hgb 18.0, Hct 55.7 H, MCV 95.5 H, MCH 30.9, MCHC 32.4, RDW 13.8, Plt Count 235, MPV 8.5, Neut % (Auto) 82.3 H, Lymph % (Auto) 12.9, Gonzales % (Auto) 3.9, Eos % (Auto) 0.6, Baso % (Auto) 0.4, Neut # (Auto) 7.8, Lymph # (Auto) 1.2, Gonzales # (Auto) 0.4, Eos # (Auto) 0.1, Baso # (Auto) 0.0 04/09/19 12:26: Activated Clotting Time > 400 H* 04/09/19 13:01: Activated Clotting Time 338 H* 04/09/19 16:09: POC Glucose 148 H 04/09/19 21:13: POC Glucose 195 H 04/10/19 06:14: POC Glucose 222 H I & O for Last 24 hours: Intake & Output 04/07/19 04/08/19 04/09/19 04/10/19 11:59 11:59 11:59 11:59 Intake Total 1320 / 1320 Balance 1320 / 1320 Weight 228 lb 13.437 oz 220 lb 5 oz - Constitutional no acute distress Comments: Appears comfortable - *Routine Respiratory Exam Present: CTA bilaterally (Anteriorly and posteriorly) - *Routine Cardiovascular Exam Present: RRR, murmur Comments: Monitor showing sinus rhythm with occasional PVC - *Routine Abdominal Exam Present: soft, normoactive bowel sounds. Absent: tenderness - *Routine Extremities Exam Absent: edema, calf tenderness - *Routine Neurological Exam Present: alert, oriented X3 Assessment and Plan (1) Non-ST elevation SC (NSTEMI) Current visit: Yes Status: Acute Category: Medical Code(s): I21.4 - Non-ST elevation (NSTEMI) myocardial infarction (2) Dyspnea Current visit: No Status: Chronic Qualifiers: Dyspnea type: shortness of breath Qualified Code(s): R06.02 - Shortness of breath Category: Medical Code(s): R06.00 - Dyspnea, unspecified (3) Fatigue Current visit: No Status: Chronic Qualifiers: Fatigue type: unspecified Qualified Code(s): R53.83 - Other fatigue Category: Medical Code(s): R53.83 - Other fatigue (4) Hyperlipidemia Current visit: No Status: Chronic Qualifiers: Hyperlipidemia type: other hyperlipidemia Qualified Code(s): E78.49 - Other hyperlipidemia; E78.4 - Other hyperlipidemia Category: Medical Code(s): E78.5 - Hyperlipidemia, unspecified (5) Hypertensive disorder Current visit: No Status: Chronic Qualifiers: Hypertension type: essential hypertension Qualified Code(s): I10 - Essential (primary) hypertension Category: Medical Code(s): I10 - Essential (primary) hypertension (6) Ischemic cardiomyopathy Current visit: No Status: Chronic Category: Medical Code(s): I25.5 - Ischemic cardiomyopathy (7) JARON (obstructive sleep apnea) Current visit: No Status: Chronic Category: Medical Code(s): G47.33 - Obstructive sleep apnea (adult) (pediatric) (8) Coronary arteriosclerosis Current visit: No Status: Chronic Category: Medical Code(s): I25.10 - Atherosclerotic heart disease of [place] coronary artery without angina pectoris (9) Diabetes Current visit: No Status: Chronic Qualifiers: Diabetes mellitus type: type 2 Diabetes mellitus mcc insulin use: with mcc use Diabetes mellitus complication status: without complication Qualified Code(s): E11.9 - Type 2 diabetes mellitus without complications; Z79.4 - custodial (current) use of insulin Category: Medical Code(s): E11.9 - Type 2 diabetes mellitus without complications - Assessment and plan all Dx Assessment and Plan for all problems:: Echocardiogram results are still pending. We will continue to monitor for now. Continue with current meds as per cardiology <Alejo Busby - Last Filed: 04/10/19 09:00> Internal Medicine - PN: Subj *Date: 04/10/19 *Time: 08:59 Exam Vital signs and Labs for Last 24 Hours: Temp Pulse Resp BP Pulse Ox 97.7 F 96 H 18 102/72 L 95 04/10/19 04:00 04/10/19 06:00 04/10/19 06:00 04/10/19 06:00 04/10/19 06:00 Laboratory Results - last 24 hr 04/09/19 09:45: Sodium 139, Potassium 4.3, Chloride 103, Carbon Dioxide 30, Anion Gap 10.3, BUN 20 H, Creatinine 0.83, Estimated Creat Clear 107, Estimated GFR 93, Est GFR ( Amer) 113, Glucose 85, Calcium 9.4, Troponin I 0.20 H 04/09/19 09:45: B-Natriuretic Peptide 62 04/09/19 11:25: WBC 9.5, RBC 5.83, Hgb 18.0, Hct 55.7 H, MCV 95.5 H, MCH 30.9, MCHC 32.4, RDW 13.8, Plt Count 235, MPV 8.5, Neut % (Auto) 82.3 H, Lymph % (Auto) 12.9, [place] % (Auto) 3.9, Eos % (Auto) 0.6, Baso % (Auto) 0.4, Neut # (Auto) 7.8, Lymph # (Auto) 1.2, [place] # (Auto) 0.4, Eos # (Auto) 0.1, Baso # (Auto) 0.0 04/09/19 12:26: Activated Clotting Time > 400 H* 04/09/19 13:01: Activated Clotting Time 338 H* 04/09/19 16:09: POC Glucose 148 H 04/09/19 21:13: POC Glucose 195 H 04/10/19 06:14: POC Glucose 222 H I & O for Last 24 hours: Intake & Output 04/07/19 04/08/19 04/09/19 04/10/19 23:59 23:59 23:59 23:59 Intake Total 360 / 360 960 / 960 Balance 360 / 360 960 / 960 Weight 227 lb 220 lb 5 oz Assessment and Plan (1) Non-ST elevation SC (NSTEMI) Current visit: Yes Status: Acute Category: Medical Code(s): I21.4 - Non-ST elevation (NSTEMI) myocardial infarction (2) Dyspnea Current visit: No Status: Chronic Qualifiers: Dyspnea type: shortness of breath Qualified Code(s): R06.02 - Shortness of breath Category: Medical Code(s): R06.00 - Dyspnea, unspecified (3) Fatigue Current visit: No Status: Chronic Qualifiers: Fatigue type: unspecified Qualified Code(s): R53.83 - Other fatigue Category: Medical Code(s): R53.83 - Other fatigue (4) Hyperlipidemia Current visit: No Status: Chronic Qualifiers: Hyperlipidemia type: other hyperlipidemia Qualified Code(s): E78.49 - Other hyperlipidemia; E78.4 - Other hyperlipidemia Category: Medical Code(s): E78.5 - Hyperlipidemia, unspecified (5) Hypertensive disorder Current visit: No Status: Chronic Qualifiers: Hypertension type: essential hypertension Qualified Code(s): I10 - Essential (primary) hypertension Category: Medical Code(s): I10 - Essential (primary) hypertension (6) Ischemic cardiomyopathy Current visit: No Status: Chronic Category: Medical Code(s): I25.5 - Ischemic cardiomyopathy (7) JARON (obstructive sleep apnea) Current visit: No Status: Chronic Category: Medical Code(s): G47.33 - Obstructive sleep apnea (adult) (pediatric) (8) Coronary arteriosclerosis Current visit: No Status: Chronic Category: Medical Code(s): I25.10 - Atherosclerotic heart disease of [place] coronary artery without angina pectoris (9) Diabetes Current visit: No Status: Chronic Qualifiers: Diabetes mellitus type: type 2 Diabetes mellitus keno terminal operator insulin use: with keno terminal operator use Diabetes mellitus complication status: without complication Qualified Code(s): E11.9 - Type 2 diabetes mellitus without complications; Z79.4 - intermediate designer (current) use of insulin Category: Medical Code(s): E11.9 - Type 2 diabetes mellitus without complications - Assessment and plan all Dx Assessment and Plan for all problems:: Saw patient, agree with above note.
--- NOTE | 2019-04-10 09:16 | Progress Note ---
Subjective Date: 04/10/19 Time: 09:12 Principal diagnosis: NSTEMI Interval history: 63-year-old white male in bed in no acute distress at this time. Patient states he had a rough night including chest discomfort after the cath along with significant diaphoresis requiring changing of linens during the night. He did have an episode of vomiting this a.m. after which he was able to get some rest. Blood pressures overnight have run low in the 100 or 90 systolic range. Heart rate continues around to 100. Patient is also concerned about his blood sugars being higher than they are normally. He does relate that the chest pain that he had prior to the stenting is gone. The chest discomfort he has now seems to worsen with deep breathing. Telemetry shows sinus rhythm sinus tachycardia at around 100 bpm. Exam Vital signs and Labs for Last 24 Hours: Temp Pulse Resp BP Pulse Ox 97.7 F 99 H 17 92/60 L 93 L 04/10/19 04:00 04/10/19 08:00 04/10/19 08:00 04/10/19 08:00 04/10/19 08:00 Laboratory Results - last 24 hr 04/09/19 09:45: Sodium 139, Potassium 4.3, Chloride 103, Carbon Dioxide 30, Anion Gap 10.3, BUN 20 H, Creatinine 0.83, Estimated Creat Clear 107, Estimated GFR 93, Est GFR ( Amer) 113, Glucose 85, Calcium 9.4, Troponin I 0.20 H 04/09/19 09:45: B-Natriuretic Peptide 62 04/09/19 11:25: WBC 9.5, RBC 5.83, Hgb 18.0, Hct 55.7 H, MCV 95.5 H, MCH 30.9, MCHC 32.4, RDW 13.8, Plt Count 235, MPV 8.5, Neut % (Auto) 82.3 H, Lymph % (Auto) 12.9, [place] % (Auto) 3.9, Eos % (Auto) 0.6, Baso % (Auto) 0.4, Neut # (Auto) 7.8, Lymph # (Auto) 1.2, [place] # (Auto) 0.4, Eos # (Auto) 0.1, Baso # (Auto) 0.0 04/09/19 12:26: Activated Clotting Time > 400 H* 04/09/19 13:01: Activated Clotting Time 338 H* 04/09/19 16:09: POC Glucose 148 H 04/09/19 21:13: POC Glucose 195 H 04/10/19 06:14: POC Glucose 222 H I & O for Last 24 hours: Intake & Output 04/07/19 04/08/19 04/09/19 04/10/19 11:59 11:59 11:59 11:59 Intake Total 1320 / 1320 Balance 1320 / 1320 Weight 228 lb 13.437 oz 220 lb 5 oz - *Routine HEENT Exam Head: Present: normocephalic Eye: Present: EOMI, PERRL ENT: Present: mucous membranes moist - *Routine Respiratory Exam Present: CTA bilaterally. Absent: accessory muscle use, rales, rhonchi, wheezes - *Routine Cardiovascular Exam Present: RRR. Absent: murmur, gallop, rubs - *Routine Extremities Exam Absent: edema, calf tenderness - *Routine Neurological Exam Present: alert, oriented X3, moving all extremities Progress Note: A&P (1) Non-ST elevation [place] (NSTEMI) Status: Acute Current Visit: Yes (2) Dyspnea Status: Chronic Current Visit: No (3) Fatigue Status: Chronic Current Visit: No (4) Hyperlipidemia Status: Chronic Current Visit: No (5) Hypertensive disorder Status: Chronic Current Visit: No (6) Ischemic cardiomyopathy Status: Chronic Current Visit: No (7) JARON (obstructive sleep apnea) Status: Chronic Current Visit: No (8) Coronary arteriosclerosis Status: Chronic Current Visit: No (9) Diabetes Status: Chronic Current Visit: No Assessment and Plan for All Diagnoses:: 1. We will reduce his Coreg and Entresto by half to allow his blood pressure to increase to see if this will help with his episodes of diaphoresis and weakness. 2. Continue to monitor on telemetry for an arrhythmia. 3. If chest discomfort continues then would recommend adding Ranexa 500 mg twic e daily for coronary artery spasm. 4. Discussed that the patient should stay here another day for monitoring with plans for discharge home. He is in agreement.
--- NOTE | 2019-04-10 13:48 | Electrocardiograph Report ---
APPROVED REPORT Exam: Resting ECG HR:95 bpm ECG Measurements Heart Rate 95 AXES OR 170 P 36 QRSd 82 QRS -40 QT 352 T-29 QTc 442 <Conclusion> Normal sinus rhythm Left axis deviation old inferior changes Abnormal ECG Electronically signed by : Tony Deshpande, 04/10/2019 13:47:54
[2019-04-10 18:04] LABS: Anion Gap 16.1 mEq/L (5-15); Calcium 8.8 mg/dL (8.5-10.1)
--- NOTE | 2019-04-10 20:56 | Progress Note ---
Internal Medicine - PN: Subj *Date: 04/10/19 *Time: 20:53 Interval history: 63-year-old white male with angioplasty and stent placement on 827. Stent to the diagonal and angioplasty to the proximal LAD. This evening has become hypotensive, presently 79/54.. This is been gradually progressive. He has had a saline lock. IV fluids were initiated at 125 cc an hour. Low blood pressure has persisted. Dr. Jameson was contacted and a 500 cc fluid bolus was ordered. Patient is already received his dose of Entresto for the evening. He has not received his carvedilol dose. Exam Vital signs and Labs for Last 24 Hours: Temp Pulse Resp BP Pulse Ox 97.7 F 92 H 17 81/60 L 95 04/10/19 19:37 04/10/19 18:00 04/10/19 18:00 04/10/19 18:00 04/10/19 19:45 Laboratory Results - last 24 hr 04/09/19 21:13: POC Glucose 195 H 04/10/19 06:14: POC Glucose 222 H 04/10/19 11:42: POC Glucose 269 H 04/10/19 16:56: POC Glucose 317 H* 04/10/19 17:45: Sodium 132 L, Potassium 5.1, Chloride 99, Carbon Dioxide 22 D, Anion Gap 16.1 H, BUN 46 H D, Creatinine 2.53 H D, Estimated Creat Clear 41, Estimated GFR 26 L, Est GFR ( Amer) 31 L D, Glucose 336 H, Calcium 8.8 04/10/19 20:01: POC Glucose 285 H I & O for Last 24 hours: Intake & Output 04/08/19 04/09/19 04/10/19 04/11/19 11:59 11:59 11:59 11:59 Intake Total 1320 / 1320 600 / 600 Balance 1320 / 1320 600 / 600 Weight 228 lb 13.437 oz 220 lb 5 oz 220 lb 4.997 oz - Constitutional no acute distress (Alert and cogent.) - *Routine HEENT Exam ENT: Present: mucous membranes dry - *Routine Respiratory Exam Present: CTA bilaterally - *Routine Cardiovascular Exam Present: RRR (No ectopics) Comments: EKG is ordered. There is some ST depression in the lateral leads. - *Routine Extremities Exam Absent: cyanosis, edema - *Routine Skin Exam Present: intact (Cool to the touch particularly at the feet. Slight diaphoresis.) Assessment and Plan (1) Non-ST elevation [place] (NSTEMI) Current visit: Yes Status: Acute Category: Medical Code(s): I21.4 - Non-ST elevation (NSTEMI) myocardial infarction (2) Dyspnea Current visit: No Status: Chronic Qualifiers: Dyspnea type: shortness of breath Qualified Code(s): R06.02 - Shortness of breath Category: Medical Code(s): R06.00 - Dyspnea, unspecified (3) Fatigue Current visit: No Status: Chronic Qualifiers: Fatigue type: unspecified Qualified Code(s): R53.83 - Other fatigue Category: Medical Code(s): R53.83 - Other fatigue (4) Hyperlipidemia Current visit: No Status: Chronic Qualifiers: Hyperlipidemia type: other hyperlipidemia Qualified Code(s): E78.49 - Other hyperlipidemia; E78.4 - Other hyperlipidemia Category: Medical Code(s): E78.5 - Hyperlipidemia, unspecified (5) Hypertensive disorder Current visit: No Status: Chronic Qualifiers: Hypertension type: essential hypertension Qualified Code(s): I10 - Essential (primary) hypertension Category: Medical Code(s): I10 - Essential (primary) hypertension (6) Ischemic cardiomyopathy Current visit: No Status: Chronic Category: Medical Code(s): I25.5 - Ischemic cardiomyopathy (7) JARON (obstructive sleep apnea) Current visit: No Status: Chronic Category: Medical Code(s): G47.33 - Obstructive sleep apnea (adult) (pediatric) (8) Coronary arteriosclerosis Current visit: No Status: Chronic Category: Medical Code(s): I25.10 - Atherosclerotic heart disease of [place] coronary artery without angina pectoris (9) Diabetes Current visit: No Status: Chronic Qualifiers: Diabetes mellitus type: type 2 Diabetes mellitus assisted insulin use: with assisted use Diabetes mellitus complication status: without complication Qualified Code(s): E11.9 - Type 2 diabetes mellitus without complications; Z79.4 - terminal operations supervisor (current) use of insulin Category: Medical Code(s): E11.9 - Type 2 diabetes mellitus without complications - Assessment and plan all Dx Assessment and Plan for all problems:: The patient is hypotensive this evening. He does appear slightly dehydrated. IV fluids should help. If not he will need some IV vascular support
[2019-04-11 06:35] LABS: Basophils % 0.2 % (0.1-2.0); Eosinophils % 0.2 % (0.1-12.0); Hematocrit 50.1 % (42.0-52.0); Hemoglobin 15.9 g/dL (14.1-18.0); Lymphocytes # 2.4 K/mm3 (0.7-4.5); Lymphocytes % 16.6 % (10-50); Mean Corpuscular HGB Conc 31.7 g/dL (31.8-35.4); Mean Corpuscular Volume 98.1 fl (80-94); Mean Platelet Volume 8.8 fl (7.4-10.4); Monocytes # 1.3 K/mm3 (0.1-1.0); Monocytes % 9.4 % (1.7-9.3); Neutrophils # 10.5 K/mm3 (1.8-7.8); Neutrophils % 73.5 % (37.0-80.0); Platelet Count 251 K/mm3 (142-424); Red Cell Distribution Width 14.3 % (11.5-17.5); White Blood Count 14.2 K/mm3 (4.8-10.8)
[2019-04-11 06:42] LABS: Anion Gap 13.6 mEq/L (5-15); Calcium 8.5 mg/dL (8.5-10.1)
--- NOTE | 2019-04-11 08:07 | Progress Note ---
<Violeta Oliva - Last Filed: 04/11/19 08:12> Internal Medicine - PN: Subj *Date: 04/11/19 *Time: 08:12 Interval history: He is sitting up the chair this morning with at bedside, states he is feeling better. He denies any pain, CP, or SOB. He rested well overnight and has no complaint at this time. His blood pressure has improved overnight, remains low normal this morning. Exam Vital signs and Labs for Last 24 Hours: Temp Pulse Resp BP Pulse Ox 97.8 F 90 12 112/60 95 04/11/19 03:45 04/11/19 06:45 04/11/19 06:45 04/11/19 06:45 04/11/19 06:45 Laboratory Results - last 24 hr 04/10/19 11:42: POC Glucose 269 H 04/10/19 16:56: POC Glucose 317 H* 04/10/19 17:45: Sodium 132 L, Potassium 5.1, Chloride 99, Carbon Dioxide 22 D, Anion Gap 16.1 H, BUN 46 H D, Creatinine 2.53 H D, Estimated Creat Clear 41, Estimated GFR 26 L, Est GFR ( Amer) 31 L D, Glucose 336 H, Calcium 8.8 04/10/19 20:01: POC Glucose 285 H 04/11/19 05:28: WBC 14.2 H D, RBC 5.10, Hgb 15.9, Hct 50.1, MCV 98.1 H, MCH 31.1, MCHC 31.7 L, RDW 14.3, Plt Count 251, MPV 8.8, Neut % (Auto) 73.5, Lymph % (Auto) 16.6, [place] % (Auto) 9.4 H, Eos % (Auto) 0.2, Baso % (Auto) 0.2, Neut # (Auto) 10.5 H, Lymph # (Auto) 2.4, [place] # (Auto) 1.3 H, Eos # (Auto) 0.0, Baso # (Auto) 0.0 04/11/19 05:28: POC Glucose 206 H 04/11/19 05:28: Sodium 134 L, Potassium 4.6, Chloride 101, Carbon Dioxide 24, Anion Gap 13.6, BUN 52 H, Creatinine 2.15 H, Estimated Creat Clear 51, Estimated GFR 31 L, Est GFR ( Amer) 38 L D, Glucose 223 H D, Calcium 8.5 I & O for Last 24 hours: Intake & Output 04/08/19 04/09/19 04/10/19 04/11/19 11:59 11:59 11:59 11:59 Intake Total 1320 / 1320 2509 / 2509 Output Total 1200 / 1200 Balance 1320 / 1320 1309 / 1309 Weight 228 lb 13.437 oz 220 lb 5 oz 230 lb - Constitutional no acute distress - *Routine HEENT Exam Head: Present: normocephalic ENT: Present: mucous membranes moist - *Routine Respiratory Exam Present: CTA bilaterally - *Routine Cardiovascular Exam Present: RRR - *Routine Abdominal Exam Present: soft, normoactive bowel sounds. Absent: tenderness, distended, rebound, guarding, firm - *Routine Extremities Exam Present: full ROM, pulses intact. Absent: edema, calf tenderness - *Routine Neurological Exam Present: alert, oriented X3, moving all extremities, normal speech Assessment and Plan (1) Non-ST elevation [place] (NSTEMI) Current visit: Yes Status: Acute Category: Medical Code(s): I21.4 - Non-ST elevation (NSTEMI) myocardial infarction (2) Dyspnea Current visit: No Status: Chronic Qualifiers: Dyspnea type: shortness of breath Qualified Code(s): R06.02 - Shortness of breath Category: Medical Code(s): R06.00 - Dyspnea, unspecified (3) Fatigue Current visit: No Status: Chronic Qualifiers: Fatigue type: unspecified Qualified Code(s): R53.83 - Other fatigue Category: Medical Code(s): R53.83 - Other fatigue (4) Hyperlipidemia Current visit: No Status: Chronic Qualifiers: Hyperlipidemia type: other hyperlipidemia Qualified Code(s): E78.49 - Other hyperlipidemia; E78.4 - Other hyperlipidemia Category: Medical Code(s): E78.5 - Hyperlipidemia, unspecified (5) Hypertensive disorder Current visit: No Status: Chronic Qualifiers: Hypertension type: essential hypertension Qualified Code(s): I10 - Essential (primary) hypertension Category: Medical Code(s): I10 - Essential (primary) hypertension (6) Ischemic cardiomyopathy Current visit: No Status: Chronic Category: Medical Code(s): I25.5 - Isch emic cardiomyopathy (7) JARON (obstructive sleep apnea) Current visit: No Status: Chronic Category: Medical Code(s): G47.33 - Obstructive sleep apnea (adult) (pediatric) (8) Coronary arteriosclerosis Current visit: No Status: Chronic Category: Medical Code(s): I25.10 - Atherosclerotic heart disease of [place] coronary artery without angina pectoris (9) Diabetes Current visit: No Status: Chronic Qualifiers: Diabetes mellitus type: type 2 Diabetes mellitus long-term insulin use: with long-term use Diabetes mellitus complication status: without complication Qualified Code(s): E11.9 - Type 2 diabetes mellitus without complications; Z79.4 - FDC (current) use of insulin Category: Medical Code(s): E11.9 - Type 2 diabetes mellitus without complications - Assessment and plan all Dx Assessment and Plan for all problems:: He is feeling better this morning. WBC is elevated. Renal function is slightly improved. Will continue current care. Further per cardiology and Dr. Busby. <Alejo Busby - Last Filed: 04/11/19 08:35> Internal Medicine - PN: Subj *Date: 04/11/19 *Time: 08:34 Exam Vital signs and Labs for Last 24 Hours: Temp Pulse Resp BP Pulse Ox 97.8 F 90 12 112/60 95 04/11/19 03:45 04/11/19 06:45 04/11/19 06:45 04/11/19 06:45 04/11/19 06:45 Laboratory Results - last 24 hr 04/10/19 11:42: POC Glucose 269 H 04/10/19 16:56: POC Glucose 317 H* 04/10/19 17:45: Sodium 132 L, Potassium 5.1, Chloride 99, Carbon Dioxide 22 D, Anion Gap 16.1 H, BUN 46 H D, Creatinine 2.53 H D, Estimated Creat Clear 41, Estimated GFR 26 L, Est GFR ( Amer) 31 L D, Glucose 336 H, Calcium 8.8 04/10/19 20:01: POC Glucose 285 H 04/11/19 05:28: WBC 14.2 H D, RBC 5.10, Hgb 15.9, Hct 50.1, MCV 98.1 H, MCH 31.1, MCHC 31.7 L, RDW 14.3, Plt Count 251, MPV 8.8, Neut % (Auto) 73.5, Lymph % (Auto) 16.6, [place] % (Auto) 9.4 H, Eos % (Auto) 0.2, Baso % (Auto) 0.2, Neut # (Auto) 10.5 H, Lymph # (Auto) 2.4, [place] # (Auto) 1.3 H, Eos # (Auto) 0.0, Baso # (Auto) 0.0 04/11/19 05:28: POC Glucose 206 H 04/11/19 05:28: Sodium 134 L, Potassium 4.6, Chloride 101, Carbon Dioxide 24, Anion Gap 13.6, BUN 52 H, Creatinine 2.15 H, Estimated Creat Clear 51, Estimated GFR 31 L, Est GFR ( Amer) 38 L D, Glucose 223 H D, Calcium 8.5 I & O for Last 24 hours: Intake & Output 04/08/19 04/09/19 04/10/19 04/11/19 23:59 23:59 23:59 23:59 Intake Total 360 / 360 1560 / 1560 1909 / 1909 Output Total 1000 / 1000 200 / 200 Balance 360 / 360 560 / 560 1709 / 1709 Weight 227 lb 220 lb 4.997 oz 230 lb Assessment and Plan (1) Non-ST elevation [place] (NSTEMI) Current visit: Yes Status: Acute Category: Medical Code(s): I21.4 - Non-ST elevation (NSTEMI) myocardial infarction (2) Dyspnea Current visit: No Status: Chronic Qualifiers: Dyspnea type: shortness of breath Qualified Code(s): R06.02 - Shortness of breath Category: Medical Code(s): R06.00 - Dyspnea, unspecified (3) Fatigue Current visit: No Status: Chronic Qualifiers: Fatigue type: unspecified Qualified Code(s): R53.83 - Other fatigue Category: Medical Code(s): R53.83 - Other fatigue (4) Hyperlipidemia Current visit: No Status: Chronic Qualifiers: Hyperlipidemia type: other hyperlipidemia Qualified Code(s): E78.49 - Other hyperlipidemia; E78.4 - Other hyperlipidemia Category: Medical Code(s): E78.5 - Hyperlipidemia, unspecified (5) Hypertensive disorder Current visit: No Status: Chronic Qualifiers: Hypertension type: essential hypertension Qualified Code(s): I10 - Essential (primary) hypertension Category: Medical Code(s): I10 - Essential (primary) hypertension (6) Ischemic cardiomyopathy Current visit: No Status: Chronic Category: Medical Code(s): I25.5 - Ischemic cardiomyopathy (7) JARON (obstructive sleep apnea) Current visit: No Status: Chronic Category: Medical Code(s): G47.33 - Obstructive sleep apnea (adult) (pediatric) (8) Coronary arteriosclerosis Current visit: No Status: Chronic Category: Medical Code(s): I25.10 - Atherosclerotic heart disease of [place] coronary artery without angina pectoris (9) Diabetes Current visit: No Status: Chronic Qualifiers: Diabetes mellitus type: type 2 Diabetes mellitus long-term 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 He is receiving IVF now and BP has improved. Plan to stop Lasix.
--- NOTE | 2019-04-11 09:00 | Progress Note ---
Subjective Date: 04/11/19 Time: 08:56 Principal diagnosis: NSTEMI Interval history: 63-year-old white male in bedside chair in no acute distress. Patient had significant hypotension overnight requiring addition of Levophed drip. Upon review of his medications patient has continued to receive Lasix 40 mg daily in addition to his Entresto throughout his stay. His cardiac ejection fraction has improved from 25-30 in the past to currently 50 to 60% on medical therapy. Patient denies any further episodes of diaphoresis but still feels weak. Exam Vital signs and Labs for Last 24 Hours: Temp Pulse Resp BP Pulse Ox 97.4 F L 90 12 112/60 95 04/11/19 08:00 04/11/19 06:45 04/11/19 06:45 04/11/19 06:45 04/11/19 06:45 Laboratory Results - last 24 hr 04/10/19 11:42: POC Glucose 269 H 04/10/19 16:56: POC Glucose 317 H* 04/10/19 17:45: Sodium 132 L, Potassium 5.1, Chloride 99, Carbon Dioxide 22 D, Anion Gap 16.1 H, BUN 46 H D, Creatinine 2.53 H D, Estimated Creat Clear 41, Estimated GFR 26 L, Est GFR ( Amer) 31 L D, Glucose 336 H, Calcium 8.8 04/10/19 20:01: POC Glucose 285 H 04/11/19 05:28: WBC 14.2 H D, RBC 5.10, Hgb 15.9, Hct 50.1, MCV 98.1 H, MCH 31.1, MCHC 31.7 L, RDW 14.3, Plt Count 251, MPV 8.8, Neut % (Auto) 73.5, Lymph % (Auto) 16.6, [place] % (Auto) 9.4 H, Eos % (Auto) 0.2, Baso % (Auto) 0.2, Neut # (Auto) 10.5 H, Lymph # (Auto) 2.4, [place] # (Auto) 1.3 H, Eos # (Auto) 0.0, Baso # (Auto) 0.0 04/11/19 05:28: POC Glucose 206 H 04/11/19 05:28: Sodium 134 L, Potassium 4.6, Chloride 101, Carbon Dioxide 24, Anion Gap 13.6, BUN 52 H, Creatinine 2.15 H, Estimated Creat Clear 51, Estimated GFR 31 L, Est GFR ( Amer) 38 L D, Glucose 223 H D, Calcium 8.5 I & O for Last 24 hours: Intake & Output 04/08/19 04/09/19 04/10/19 04/11/19 11:59 11:59 11:59 11:59 Intake Total 1320 / 1320 2749 / 2749 Output Total 1200 / 1200 Balance 1320 / 1320 1549 / 1549 Weight 228 lb 13.437 oz 220 lb 5 oz 230 lb - *Routine HEENT Exam Head: Present: normocephalic Eye: Present: EOMI, PERRL ENT: Present: mucous membranes moist - *Routine Respiratory Exam Present: CTA bilaterally. Absent: accessory muscle use, rales, rhonchi, wheezes - *Routine Cardiovascular Exam Present: RRR. Absent: murmur, gallop, rubs - *Routine Extremities Exam Absent: edema, calf tenderness - *Routine Neurological Exam Present: alert, oriented X3, moving all extremities Progress Note: A&P (1) Non-ST elevation [place] (NSTEMI) Status: Acute Current Visit: Yes (2) Dyspnea Status: Chronic Current Visit: No (3) Fatigue Status: Chronic Current Visit: No (4) Hyperlipidemia Status: Chronic Current Visit: No (5) Hypertensive disorder Status: Chronic Current Visit: No (6) Ischemic cardiomyopathy Status: Chronic Current Visit: No (7) JARON (obstructive sleep apnea) Status: Chronic Current Visit: No (8) Coronary arteriosclerosis Status: Chronic Current Visit: No (9) Diabetes Status: Chronic Current Visit: No (10) Renal insufficiency Status: Acute Current Visit: Yes Assessment and Plan for All Diagnoses:: 1. Discontinue Lasix. 2. Hold Coreg and Entresto today. 3. Attempt to wean Levophed as blood pressure allows. 4. Continue IV fluids. 5. Anticipate discharge tomorrow if blood pressure is stable and renal function has improved. 6. Continue dual antiplatelet therapy with aspirin and Plavix.
--- NOTE | 2019-04-11 11:02 | Electrocardiograph Report ---
APPROVED REPORT Exam: Resting ECG HR:91 bpm ECG Measurements Heart Rate 91 AXES FL 178 P 20 QRSd 82 QRS -30 QT 338 T261 QTc 415 <Conclusion> Normal sinus rhythm Left axis deviation Nonspecific inferior changes ST & T wave abnormality, consider lateral ischemia Abnormal ECG Electronically signed by : Tony Deshpande, 04/11/2019 11:02:27
[2019-04-12 06:06] LABS: Basophils % 0.3 % (0.1-2.0); Eosinophils % 0.3 % (0.1-12.0); Hematocrit 48.4 % (42.0-52.0); Hemoglobin 15.4 g/dL (14.1-18.0); Lymphocytes % 15.1 % (10-50); Mean Corpuscular HGB Conc 31.9 g/dL (31.8-35.4); Mean Corpuscular Volume 97.8 fl (80-94); Mean Platelet Volume 9.8 fl (7.4-10.4); Monocytes # 1.3 K/mm3 (0.1-1.0); Monocytes % 9.5 % (1.7-9.3); Neutrophils # 10.1 K/mm3 (1.8-7.8); Neutrophils % 74.9 % (37.0-80.0); Platelet Count 191 K/mm3 (142-424); Red Blood Count 4.95 M/mm3 (4.60-6.20); Red Cell Distribution Width 14.1 % (11.5-17.5); White Blood Count 13.5 K/mm3 (4.8-10.8)
[2019-04-12 06:41] LABS: Anion Gap 15.6 mEq/L (5-15); Calcium 8.1 mg/dL (8.5-10.1)
--- NOTE | 2019-04-12 08:41 | Progress Note ---
Subjective Date: 04/12/19 Time: 08:38 Principal diagnosis: NSTEMI Interval history: 63-year-old white male in bed in no acute distress. No further episodes of chest pain or diaphoresis. Patient is been ambulating with complications. States he is feeling better and wants to go home. Chest x-ray yesterday showed no evidence of acute pulmonary disease. Renal functions show some improvement. Exam Vital signs and Labs for Last 24 Hours: Temp Pulse Resp BP Pulse Ox 97.5 F L 80 18 115/84 94 L 04/12/19 08:00 04/12/19 06:00 04/12/19 06:00 04/12/19 06:00 04/12/19 06:00 Laboratory Results - last 24 hr 04/11/19 11:08: POC Glucose 180 H 04/11/19 16:28: POC Glucose 176 H 04/11/19 20:12: POC Glucose 165 H 04/12/19 05:36: WBC 13.5 H, RBC 4.95, Hgb 15.4, Hct 48.4, MCV 97.8 H, MCH 31.2, MCHC 31.9, RDW 14.1, Plt Count 191, MPV 9.8, Neut % (Auto) 74.9, Lymph % (Auto) 15.1, [place] % (Auto) 9.5 H, Eos % (Auto) 0.3, Baso % (Auto) 0.3, Neut # (Auto) 10.1 H, Lymph # (Auto) 2.0, [place] # (Auto) 1.3 H, Eos # (Auto) 0.0, Baso # (Auto) 0.0 04/12/19 05:36: Sodium 135 L, Potassium 4.6, Chloride 102, Carbon Dioxide 22, Anion Gap 15.6 H, BUN 64 H, Creatinine 1.62 H D, Estimated Creat Clear 68, Estimated GFR 43 L, Est GFR ( Amer) 52 L D, Glucose 150 H, Calcium 8.1 L 04/12/19 05:36: POC Glucose 137 H I & O for Last 24 hours: Intake & Output 04/09/19 04/10/19 04/11/19 04/12/19 11:59 11:59 11:59 11:59 Intake Total 1320 / 1320 2749 / 2749 1547 / 1547 Output Total 1200 / 1200 Balance 1320 / 1320 1549 / 1549 1547 / 1547 Weight 228 lb 13.437 oz 220 lb 5 oz 230 lb 233 lb 3 oz - *Routine HEENT Exam Head: Present: normocephalic Eye: Present: EOMI, PERRL ENT: Present: mucous membranes moist - *Routine Respiratory Exam Present: CTA bilaterally. Absent: accessory muscle use, rales, rhonchi, wheezes - *Routine Cardiovascular Exam Present: RRR. Absent: murmur, gallop, rubs - *Routine Abdominal Exam Present: soft. Absent: tenderness, distended, guarding - *Routine Extremities Exam Absent: edema, calf tenderness - *Routine Neurological Exam Present: alert, oriented X3, moving all extremities Progress Note: A&P (1) Non-ST elevation [place] (NSTEMI) Status: Acute Current Visit: Yes (2) Dyspnea Status: Chronic Current Visit: No (3) Fatigue Status: Chronic Current Visit: No (4) Hyperlipidemia Status: Chronic Current Visit: No (5) Hypertensive disorder Status: Chronic Current Visit: No (6) Ischemic cardiomyopathy Status: Chronic Current Visit: No (7) JARON (obstructive sleep apnea) Status: Chronic Current Visit: No (8) Coronary arteriosclerosis Status: Chronic Current Visit: No (9) Diabetes Status: Chronic Current Visit: No (10) Renal insufficiency Status: Acute Current Visit: Yes Assessment and Plan for All Diagnoses:: 1. Okay for discharge from cardiology standpoint on aspirin and Plavix for drug-eluting stent placement. 2. Continue to hold Entresto but add low-dose Coreg 3.125 mg twice daily. Continue to hold diuretics. 3. Continue atorvastatin 80 mg daily. 4. Discussed with Dr. Busby he was to the patient early next week. We would like to see him in 1 to 2 weeks.
--- NOTE | 2019-04-12 08:47 | Progress Note ---
<Violeta Oliva - Last Filed: 04/12/19 08:43> Internal Medicine - PN: Subj *Date: 04/12/19 *Time: 08:20 Interval history: Pt is feeling "much better" this morning. He has had no further chest pain, denies SOB and pain. He is eager to go home. Exam Vital signs and Labs for Last 24 Hours: Temp Pulse Resp BP Pulse Ox 97.5 F L 80 18 115/84 94 L 04/12/19 08:00 04/12/19 06:00 04/12/19 06:00 04/12/19 06:00 04/12/19 06:00 Laboratory Results - last 24 hr 04/11/19 11:08: POC Glucose 180 H 04/11/19 16:28: POC Glucose 176 H 04/11/19 20:12: POC Glucose 165 H 04/12/19 05:36: WBC 13.5 H, RBC 4.95, Hgb 15.4, Hct 48.4, MCV 97.8 H, MCH 31.2, MCHC 31.9, RDW 14.1, Plt Count 191, MPV 9.8, Neut % (Auto) 74.9, Lymph % (Auto) 15.1, [place] % (Auto) 9.5 H, Eos % (Auto) 0.3, Baso % (Auto) 0.3, Neut # (Auto) 10.1 H, Lymph # (Auto) 2.0, [place] # (Auto) 1.3 H, Eos # (Auto) 0.0, Baso # (Auto) 0.0 04/12/19 05:36: Sodium 135 L, Potassium 4.6, Chloride 102, Carbon Dioxide 22, Anion Gap 15.6 H, BUN 64 H, Creatinine 1.62 H D, Estimated Creat Clear 68, Estimated GFR 43 L, Est GFR ( Amer) 52 L D, Glucose 150 H, Calcium 8.1 L 04/12/19 05:36: POC Glucose 137 H I & O for Last 24 hours: Intake & Output 04/09/19 04/10/19 04/11/19 04/12/19 11:59 11:59 11:59 11:59 Intake Total 1320 / 1320 2749 / 2749 1667 / 1667 Output Total 1200 / 1200 Balance 1320 / 1320 1549 / 1549 1667 / 1667 Weight 228 lb 13.437 oz 220 lb 5 oz 230 lb 233 lb 3 oz - Constitutional no acute distress - *Routine HEENT Exam Head: Present: normocephalic ENT: Present: mucous membranes moist - *Routine Respiratory Exam Comments: CTAB A&P - *Routine Cardiovascular Exam Present: RRR - *Routine Abdominal Exam Present: soft, normoactive bowel sounds. Absent: tenderness, distended, rebound, guarding, firm, rigid - *Routine Extremities Exam Present: full ROM, pulses intact. Absent: edema, calf tenderness - *Routine Neurological Exam Present: alert, oriented X3, moving all extremities, normal speech. Absent: facial asymmetry Assessment and Plan (1) Non-ST elevation [place] (NSTEMI) Current visit: Yes Status: Acute Category: Medical Code(s): I21.4 - Non-ST elevation (NSTEMI) myocardial infarction (2) Dyspnea Current visit: No Status: Chronic Qualifiers: Dyspnea type: shortness of breath Qualified Code(s): R06.02 - Shortness of breath Category: Medical Code(s): R06.00 - Dyspnea, unspecified (3) Fatigue Current visit: No Status: Chronic Qualifiers: Fatigue type: unspecified Qualified Code(s): R53.83 - Other fatigue Category: Medical Code(s): R53.83 - Other fatigue (4) Hyperlipidemia Current visit: No Status: Chronic Qualifiers: Hyperlipidemia type: other hyperlipidemia Qualified Code(s): E78.49 - Other hyperlipidemia; E78.4 - Other hyperlipidemia Category: Medical Code(s): E78.5 - Hyperlipidemia, unspecified (5) Hypertensive disorder Current visit: No Status: Chronic Qualifiers: Hypertension type: essential hypertension Qualified Code(s): I10 - Essential (primary) hypertension Category: Medical Code(s): I10 - Essential (primary) hypertension (6) Ischemic cardiomyopathy Current visit: No Status: Chronic Category: Medical Code(s): I25.5 - Ischemic cardiomyopathy (7) JARON (obstructive sleep apnea) Current visit: No Status: Chronic Category: Medical Code(s): G47.33 - Obstructive sleep apnea (adult) (pediatric) (8) Coronary arteriosclerosis Current visit: No Status: Chronic Category: Medical Code(s): I25.10 - Atherosclerotic heart disease of nondal[place] coronary artery without angina pectoris (9) Diabetes Current visit: No Status: Chronic Qualifiers: Diabetes mellitus type: type 2 Diabetes mellitus correction insulin use: with extermination supervisor use Diabetes mellitus complication status: without complication Qualified Code(s): E11.9 - Type 2 diabetes mellitus without complications; Z79.4 - termite renewal inspector (current) use of insulin Category: Medical Code(s): E11.9 - Type 2 diabetes mellitus without complications (10) Renal insufficiency Current visit: Yes Status: Acute Category: Medical Code(s): N28.9 - Disorder of kidney and ureter, unspecified - Assessment and plan all Dx Assessment and Plan for all problems:: Plan for discharge today with cardiology recommendations. <Alejo Busby - Last Filed: 04/12/19 09:08> Internal Medicine - PN: Subj *Date: 04/12/19 *Time: 09:06 Exam Vital signs and Labs for Last 24 Hours: Temp Pulse Resp BP Pulse Ox 97.5 F L 80 18 115/84 94 L 04/12/19 08:00 04/12/19 06:00 04/12/19 06:00 04/12/19 06:00 04/12/19 06:00 Laboratory Results - last 24 hr 04/11/19 11:08: POC Glucose 180 H 04/11/19 16:28: POC Glucose 176 H 04/11/19 20:12: POC Glucose 165 H 04/12/19 05:36: WBC 13.5 H, RBC 4.95, Hgb 15.4, Hct 48.4, MCV 97.8 H, MCH 31.2, MCHC 31.9, RDW 14.1, Plt Count 191, MPV 9.8, Neut % (Auto) 74.9, Lymph % (Auto) 15.1, [place] % (Auto) 9.5 H, Eos % (Auto) 0.3, Baso % (Auto) 0.3, Neut # (Auto) 10.1 H, Lymph # (Auto) 2.0, [place] # (Auto) 1.3 H, Eos # (Auto) 0.0, Baso # (Auto) 0.0 04/12/19 05:36: Sodium 135 L, Potassium 4.6, Chloride 102, Carbon Dioxide 22, Anion Gap 15.6 H, BUN 64 H, Creatinine 1.62 H D, Estimated Creat Clear 68, Estimated GFR 43 L, Est GFR ( Amer) 52 L D, Glucose 150 H, Calcium 8.1 L 04/12/19 05:36: POC Glucose 137 H I & O for Last 24 hours: Intake & Output 04/09/19 04/10/19 04/11/19 04/12/19 23:59 23:59 23:59 23:59 Intake Total 360 / 360 1560 / 1560 3686 / 3686 130 / 130 Output Total 1000 / 1000 200 / 200 Balance 360 / 360 560 / 560 3486 / 3486 130 / 130 Weight 227 lb 220 lb 4.997 oz 230 lb 233 lb 3 oz Assessment and Plan (1) Non-ST elevation LA (NSTEMI) Current visit: Yes Status: Acute Category: Medical Code(s): I21.4 - Non-ST elevation (NSTEMI) myocardial infarction (2) Dyspnea Current visit: No Status: Chronic Qualifiers: Dyspnea type: shortness of breath Qualified Code(s): R06.02 - Shortness of breath Category: Medical Code(s): R06.00 - Dyspnea, unspecified (3) Fatigue Current visit: No Status: Chronic Qualifiers: Fatigue type: unspecified Qualified Code(s): R53.83 - Other fatigue Category: Medical Code(s): R53.83 - Other fatigue (4) Hyperlipidemia Current visit: No Status: Chronic Qualifiers: Hyperlipidemia type: other hyperlipidemia Qualified Code(s): E78.49 - Other hyperlipidemia; E78.4 - Other hyperlipidemia Category: Medical Code(s): E78.5 - Hyperlipidemia, unspecified (5) Hypertensive disorder Current visit: No Status: Chronic Qualifiers: Hypertension type: essential hypertension Qualified Code(s): I10 - Essent ial (primary) hypertension Category: Medical Code(s): I10 - Essential (primary) hypertension (6) Ischemic cardiomyopathy Current visit: No Status: Chronic Category: Medical Code(s): I25.5 - Ischemic cardiomyopathy (7) JARON (obstructive sleep apnea) Current visit: No Status: Chronic Category: Medical Code(s): G47.33 - Obstructive sleep apnea (adult) (pediatric) (8) Coronary arteriosclerosis Current visit: No Status: Chronic Category: Medical Code(s): I25.10 - Atherosclerotic heart disease of nondalton coronary artery without angina pectoris (9) Diabetes Current visit: No Status: Chronic Qualifiers: Diabetes mellitus type: type 2 Diabetes mellitus correction insulin use: with correction use Diabetes mellitus complication status: without complication Qualified Code(s): E11.9 - Type 2 diabetes mellitus without complications; Z79.4 - termite renewal inspector (current) use of insulin Category: Medical Code(s): E11.9 - Type 2 diabetes mellitus without c omplications (10) Renal insufficiency Current visit: Yes Status: Acute Category: Medical Code(s): N28.9 - Disorder of kidney and ureter, unspecified - Assessment and plan all Dx Assessment and Plan for all problems:: Saw patient, OK for discharge today. EF reportedly normal now. Will stop Entresto, Lisinopril and Lasix due to persistent hypotension and renal insufficiency. Will reduce Coreg dose to 3.125 BID, plan for office f/u in 4 days.
--- NOTE | 2019-04-12 09:00 | Discharge Summary ---
General - General Admission date:: 04/09/19 Discharge date: 04/12/19 HPI HPI: Mr. Montes was a 63-year-old white male with history of type 2 diabetes mellitus, hyperlipidemia, hypertension, neuropathy, and known coronary artery disease for which medical therapy had been recommended. On the day of admission, he presented to the cardiology office for evaluation of recurrent episodes of severe diaphoresis associated with shortness of breath and weakness. EKG showed no acute change. Limited echocardiogram showed ejection fraction 45-50% but lab work revealed mildly elevated troponin at 0.2. It was felt that the patient had recently suffered a non-ST elevation CO within the last 2 days and had failed outpatient medical therapy for his coronary artery disease. It was decided to send him to the cardiac painter touch up to attempt stenting of his diagonal artery in light of his recurrent symptoms and elevated troponin. Patient appeared very pale and weak and was still wet with sweat at the time of office evaluation. Dr. Busby was called by cardiology as the patient needed admission for observation after the procedure. He reportedly had one stent placed and had several areas treated with balloon angioplasty. Hospital Course Hospital Course: Following the procedure, he was admitted for overnight observation with tentative plans to discharge home the following day if stable. Overnight, he continued to experience chest pain and diaphoresis, as well as nausea with one episode of emesis. By the next morning, his chest pain was much less severe although still present. His Coreg and Entresto doses were decreased in an attempt to increase his blood pressure which had run low overnight. Telemetry showed sinus rhythm without ectopy. He continued to become gradually more hypotensive as the day progressed and renal function declined. He remained hypotensive despite initiation of IV fluids and fluid bolus, requiring addition of levophed drip overnight for vascular support. By the morning of 04/11/19, he was feeling somewhat better and renal function was slightly improved with blood pressures remaining low normal while receiving levophed. His Lasix was stopped and his Coreg and Etresto were held in attempt to wean levophed as tolerated. By the morning of 04/12/19, his blood pressures had normalized off levophed and he was feeling much better. He was felt to be stable for discharge with plan to hold diuretics and Entresto, continue atorvastatin, ASA, and Plavix, and add low-dose Coreg. He would followup with Dr. Chester early next week and with cardiology in 1-2 weeks. Objective Vital signs: Temp Pulse Resp BP Pulse Ox 97.5 F L 80 18 115/84 94 L 04/12/19 08:00 04/12/19 06:00 04/12/19 06:00 04/12/19 06:00 04/12/19 06:00 Results Labs on day of discharge: Labs from last 24 hours 04/12/19 04/12/19 04/12/19 05:36 05:36 05:36 WBC 13.5 H RBC 4.95 Hgb 15.4 Hct 48.4 MCV 97.8 H MCH 31.2 MCHC 31.9 RDW 14.1 Plt Count 191 MPV 9.8 Neut % (Auto) 74.9 Lymph % (Auto) 15.1 [place] % (Auto) 9.5 H Eos % (Auto) 0.3 Baso % (Auto) 0.3 Neut # (Auto) 10.1 H Lymph # (Auto) 2.0 [place] # (Auto) 1.3 H Eos # (Auto) 0.0 Baso # (Auto) 0.0 Sodium 135 L Potassium 4.6 Chloride 102 Carbon Dioxide 22 Anion Gap 15.6 H BUN 64 H Creatinine 1.62 H D Estimated Creat Clear 68 Estimated GFR 43 L Est GFR ( Amer) 52 L D Glucose 150 H POC Glucose 137 H Calcium 8.1 L 04/11/19 04/11/19 04/11/19 20:12 16:28 11:08 WBC RBC Hgb Hct MCV MCH MCHC RDW Plt Count MPV Neut % (Auto) Lymph % (Auto) [place] % (Auto) Eos % (Auto) Baso % (Auto) Neut # (Auto) Lymph # (Auto) [place] # (Auto) Eos # (Auto) Baso # (Auto) Sodium Potassium Chloride Carbon Dioxide Anion Gap BUN Creatinine Estimated Creat Clear Estimated GFR Est GFR ( Amer) Glucose POC Glucose 165 H 176 H 180 H Calcium DS: Diagnosis - Discharge Diagnosis (1) Non-ST elevation CO (NSTEMI) Status: Acute (2) Dyspnea Status: Chronic (3) Fatigue Status: Chronic (4) Hyperlipidemia Status: Chronic (5) Hypertensive disorder Status: Chronic (6) Ischemic cardiomyopathy Status: Chronic (7) JARON (obstructive sleep apnea) Status: Chronic (8) Coronary arteriosclerosis Status: Chronic (9) Diabetes Status: Chronic (10) Renal insufficiency Status: Acute Discharge Plan - Patient Discharge Instructions ACTIVITY: Continue current activity DIET: continue same diet Patient Instructions: DI for Heart Attack, Heart-Healthy Diet, DI for Cardiac Catheterization, DI for Surgical Site Infection - Follow up Plan Follow up with: Alejo Busby MD [Primary Care Provider] - 04/16/19 2:00 pm David Jameson MD [Staff Physician] - 04/19/19 9:00 am Disposition: Home, [facility] Medications: Home Medications Medication Instructions Recorded Confirmed Type aspirin 81 mg tablet,delayed 81 mg PO DAILY 08/15/17 04/10/19 History release atorvastatin 80 mg tablet 80 mg PO HS 08/15/17 04/10/19 History insulin glargine (U-300) conc. 300 75 unit SQ HS ml 08/15/17 04/10/19 History unit/mL (1.5 mL) subcutaneous pen Clopidogrel Bisulfate [Plavix 75mg 75 mg PO DAILY 04/09/19 04/09/19 History Tab] Empagliflozin/Metformin HCl 2 tab PO DAILY 04/09/19 04/09/19 History [Synjardy Xr 12.5-1,000 mg Tab] Gabapentin [Gabapentin 300mg Cap] 1 cap PO BID 04/09/19 04/09/19 History Carvedilol [Carvedilol 3.125mg Tab] 3.125 mg PO BID #60 tab 04/12/19 Rx Prescriptions/Medication Reconciliation: New Carvedilol [Carvedilol 3.125mg Tab] 3.125 mg PO BID #60 tab Continued atorvastatin 80 mg tablet 80 mg PO HS insulin glargine (U-300) conc. 300 unit/mL (1.5 mL) subcutaneous pen 75 unit SQ HS ml aspirin 81 mg tablet,delayed release 81 mg PO DAILY Clopidogrel Bisulfate [Plavix 75mg Tab] 75 mg PO DAILY Gabapentin [Gabapentin 300mg Cap] 1 cap PO BID Empagliflozin/Metformin HCl [Synjardy Xr 12.5-1,000 mg Tab] 2 tab PO DAILY Discontinued carvedilol 12.5 mg tablet 25 mg PO BID tab Furosemide [Furosemide 40MG tAB] 40 mg PO BID Sacubitril/Valsartan [Entresto] 1 tab PO BID - Problem Reconciliation Problems Reviewed?: Yes
== END 2019-04-12 09:55 | disposition home or self-care (01) | DRG 247 ==
LOC: CATHLAB 11:06 → 2ND 11:06 → OBSVTOIN 11:13 → 2ND 14:47
PROVIDERS: ADMIT Family Medicine; ATTEND Family Medicine
CPT/HCPCS: 36415; 71020; 71046; 80048; 82962; 83880; 84484; 85025; 85347; 92928; 93005; 93308; 93458; 94761; 99152; 99153; C1725; C1760; C1769; C1876; C1894; C9600; J1644; J2405; Q9967

== ENCOUNTER 2019-04-16 11:04 | Inpatient (IN) ==
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
[2019-04-16 11:57] LABS: Basophils % 0.2 % (0.1-2.0); Eosinophils # 0.1 K/mm3 (0.0-0.4); Eosinophils % 1.3 % (0.1-12.0); Hematocrit 44.7 % (42.0-52.0); Hemoglobin 14.4 g/dL (14.1-18.0); Lymphocytes # 0.9 K/mm3 (0.7-4.5); Lymphocytes % 9.5 % (10-50); Mean Corpuscular HGB Conc 32.3 g/dL (31.8-35.4); Mean Corpuscular Volume 96.7 fl (80-94); Mean Platelet Volume 9.3 fl (7.4-10.4); Monocytes # 0.7 K/mm3 (0.1-1.0); Monocytes % 6.8 % (1.7-9.3); Neutrophils # 8.1 K/mm3 (1.8-7.8); Neutrophils % 82.2 % (37.0-80.0); Platelet Count 200 K/mm3 (142-424); Red Blood Count 4.62 M/mm3 (4.60-6.20); Red Cell Distribution Width 14.5 % (11.5-17.5); White Blood Count 9.8 K/mm3 (4.8-10.8)
[2019-04-16 12:27] LABS: Albumin/Globulin Ratio 0.9 (1.1-1.8); Anion Gap 15.3 mEq/L (5-15); Bilirubin,Total 0.8 mg/dL (0.2-1.0); Calcium 8.4 mg/dL (8.5-10.1); Globulin 3.2 gm/dl (1.3-3.2); Total Protein,Serum 6.2 gm/dL (6.4-8.2)
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
--- NOTE | 2019-04-16 17:22 | Progress Note ---
Internal Medicine - PN: Subj *Date: 04/16/19 *Time: 17:20 Interval history: Patient admitted today with a NSTEMI. He had a NSTEMI last week with stent placement last week by Dr. Jameson. Pt is resting comfortably now. Exam Vital signs and Labs for Last 24 Hours: Temp Pulse Resp BP Pulse Ox 97.8 F 72 17 165/98 H 99 04/16/19 14:04/16/19 14:04/16/19 14:04/16/19 14:04/16/19 14:26 Laboratory Results - last 24 hr 04/16/19 11:25: WBC 9.8, RBC 4.62, Hgb 14.4, Hct 44.7, MCV 96.7 H, MCH 31.2, MCHC 32.3, RDW 14.5, Plt Count 200, MPV 9.3, Neut % (Auto) 82.2 H, Lymph % (Auto) 9.5 L, [place] % (Auto) 6.8, Eos % (Auto) 1.3, Baso % (Auto) 0.2, Neut # (Auto) 8.1 H, Lymph # (Auto) 0.9, [place] # (Auto) 0.7, Eos # (Auto) 0.1, Baso # (Auto) 0.0 04/16/19 11:25: Sodium 142, Potassium 4.3, Chloride 105, Carbon Dioxide 26, Anion Gap 15.3 H, BUN 17, Creatinine 1.06, Estimated Creat Clear 100, Estimated GFR 70, Est GFR ( Amer) 85, Glucose 100, Calcium 8.4 L, Total Bilirubin 0.8, AST 26, ALT 147 H, Alkaline Phosphatase 113, Troponin I 3.63 H, Total Protein 6.2 L, Albumin 3.0 L, Globulin 3.2, Albumin/Globulin Ratio 0.9 L 04/16/19 11:28: POC Glucose 107 04/16/19 16:06: Troponin I 3.16 H 04/16/19 16:47: POC Glucose 178 H I & O for Last 24 hours: Intake & Output 04/13/19 04/14/19 04/15/19 04/16/19 23:59 23:59 23:59 23:59 Weight 229 lb 4.492 oz - Constitutional no acute distress (conversant) Assessment and Plan (1) Non-ST elevation MD (NSTEMI) Current visit: Yes Status: Acute Category: Medical Code(s): I21.4 - Non-ST elevation (NSTEMI) myocardial infarction (2) Coronary arteriosclerosis Current visit: No Status: Chronic Category: Medical Code(s): I25.10 - Atherosclerotic heart disease of [place] coronary artery without angina pectoris (3) Diabetes Current visit: No Status: Chronic Qualifiers: Diabetes mellitus type: type 2 Diabetes mellitus group home insulin use: with group home use Diabetes mellitus complication status: without complication Qualified Code(s): E11.9 - Type 2 diabetes mellitus without complications; Z79.4 - shelter (current) use of insulin Category: Medical Code(s): E11.9 - Type 2 diabetes mellitus without complications (4) Hyperlipidemia Current visit: No Status: Chronic Qualifiers: Hyperlipidemia type: other hyperlipidemia Qualified Code(s): E78.49 - Other hyperlipidemia; E78.4 - Other hyperlipidemia Category: Medical Code(s): E78.5 - Hyperlipidemia, unspecified (5) Hypertensive disorder Current visit: No Status: Chronic Qualifiers: Hypertension type: essential hypertension Qualified Code(s): I10 - Essential (primary) hypertension Category: Medical Code(s): I10 - Essential (primary) hypertension (6) Ischemic cardiomyopathy Current visit: No Status: Chronic Category: Medical Code(s): I25.5 - Ischemic cardiomyopathy (7) JARON (obstructive sleep apnea) Current visit: No Status: Chronic Category: Medical Code(s): G47.33 - Obstructive sleep apnea (adult) (pediatric) - Assessment and plan all Dx Assessment and Plan for all problems:: Cardiology note reviewed, continue telemetry, resume Entresto, await Echo report.
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
--- NOTE | 2019-04-16 20:19 | Electrocardiograph Report ---
APPROVED REPORT Exam: Resting ECG HR:66 bpm ECG Measurements Heart Rate 66 AXES AK 150 P 46 QRSd 92 QRS -23 QT 346 T245 QTc 362 <Conclusion> Normal sinus rhythm Low voltage QRS late r wave progression Abnormal ECG Electronically signed by : Tony Deshpande, 04/16/2019 20:19:11
--- NOTE | 2019-04-16 21:56 | Cardiology Report ---
APPROVED REPORT EXAM: Limited 2D Echocardiogram It Support Analyst: Rose Puentes CRT Ht: 5 ft 8 in Wt: 225lbs BSA: 2.15 BP: 153/80 mmHg Indications: SOB, NSTEMI M-Mode Dimensions RVDd 2.60 cm (0.9-2.6)LVDd 5.20 cm (3.5-5.7) LVDs 3.60 cm (3.5-5.7)IVSd 1.40 cm (0.6-1.1) PWd 1.20 cm (0.6-1.1)EF (Teich) 58.20% FS 30.80% EDV (Teich) 130.00 mL ESV (Teich) 54.40 mL Left Ventricle Left atrium is mildly enlarged, left ventricle is normal size, there is mild concentric left ventricular hypertrophy, visually estimated ejection fraction 45%, with marked hypokinesis involving the distal anterolateral wall. Endocardial surfaces are poorly visualized. Repeat study with Definity contrast is recommended. Right Ventricle Right atrium and right ventricle are normal size and contractility. Aortic Valve Aortic valve is thickened and calcified, leaflet continue to display good mobility. Mitral Valve Mitral is grossly normal. Tricuspid Valve Tricuspid valve is grossly normal Pulmonic Valve Pulmonic valve is poorly visualized. Pericardium There is localized moderate sized pericardial effusion seen involving the anterolateral part of the left ventricle and anterior aspect of the right ventricle. There is no echocardiographic obvious evidence of tamponade. Conclusion 1. Normal left ventricular size, mild concentric left ventricular hypertrophy, visually estimated ejection fraction 45% with segmental wall motion abnormality described above. 2. Localized pericardial effusion as described above, there is no obvious echocardiographic evidence of tamponade or raised intrapericardial pressure. 3. If clinically indicated repeat serial studies recommended to follow-up on pericardial effusion. 4. Repeat study with Definity contrast is recommended. 5. If clinically indicated CT scan of the chest is recommended. Electronically signed by : Nicolas Norton, 04/16/2019 21:55:54
--- NOTE | 2019-04-17 07:24 | Pharmacy Consult Notes ---
[facility] Pharmacy VTE Monitoring - Patient Demographics Admission date: 04/17/19 Report Date: 04/17/19 Time: 07:24 Allergies/Adverse Reactions: Patient Allergies No Known Allergies Allergy (Verified 04/09/19 08:49) Height: 1.73 m Weight: 103.873 kg Patient Problems: Current Active Problems Non-ST elevation [place] (NSTEMI) (Acute) - VTE Risk Labs: VTE Related Lab Results Hgb 14.4 g/dL (14.1-18.0) 04/16/19 11:25 Hct 44.7 % (42.0-52.0) 04/16/19 11:25 Plt Count 200 K/mm3 (142-424) 04/16/19 11:25 BUN 17 mg/dL (7-18) 04/16/19 11:25 Creatinine 1.06 mg/dL (0.70-1.30) 04/16/19 11:25 Estimated Creat Clear 100 mL/min (50-200) 04/16/19 11:25 Was VTE Risk Assessment Performed: Yes VTE Score: 2 VTE Risk Level: Very Low Risk Clinical Trial Participant: No - Prophylaxis VTE Prophylaxis Ordered?: Yes Types of VTE Prophylaxis: TEDS Knee High
--- NOTE | 2019-04-17 07:42 | Progress Note ---
<Darya Nixon - Last Filed: 04/17/19 07:39> Internal Medicine - PN: Subj *Date: 04/17/19 *Time: 07:39 Interval history: Patient states he slept well. He is eating without problems. He has been up to the bathroom without difficulty. He denies chest pain, shortness of breath and has had no further diaphoretic episodes. He has already had the CT of the chest this a.m. Blood pressure has improved. Troponin I's are trending downwards. Blood sugars have been satisfactory. Exam Vital signs and Labs for Last 24 Hours: Temp Pulse Resp BP Pulse Ox 98.2 F 68 18 125/82 96 04/17/19 04:00 04/17/19 04:00 04/17/19 04:00 04/17/19 04:00 04/17/19 04:00 Laboratory Results - last 24 hr 04/16/19 11:25: WBC 9.8, RBC 4.62, Hgb 14.4, Hct 44.7, MCV 96.7 H, MCH 31.2, MCHC 32.3, RDW 14.5, Plt Count 200, MPV 9.3, Neut % (Auto) 82.2 H, Lymph % (Auto) 9.5 L, [place] % (Auto) 6.8, Eos % (Auto) 1.3, Baso % (Auto) 0.2, Neut # (Auto) 8.1 H, Lymph # (Auto) 0.9, [place] # (Auto) 0.7, Eos # (Auto) 0.1, Baso # (Auto) 0.0 04/16/19 11:25: Sodium 142, Potassium 4.3, Chloride 105, Carbon Dioxide 26, Anion Gap 15.3 H, BUN 17, Creatinine 1.06, Estimated Creat Clear 100, Estimated GFR 70, Est GFR ( Amer) 85, Glucose 100, Calcium 8.4 L, Total Bilirubin 0.8, AST 26, ALT 147 H, Alkaline Phosphatase 113, Troponin I 3.63 H, Total Protein 6.2 L, Albumin 3.0 L, Globulin 3.2, Albumin/Globulin Ratio 0.9 L 04/16/19 11:28: POC Glucose 107 04/16/19 16:06: Troponin I 3.16 H 04/16/19 16:47: POC Glucose 178 H 04/16/19 20:40: Troponin I 2.87 H 04/16/19 21:09: POC Glucose 227 H 04/17/19 05:59: POC Glucose 87 I & O for Last 24 hours: Intake & Output 04/14/19 04/15/19 04/16/19 04/17/19 11:59 11:59 11:59 11:59 Intake Total 1100 / 1100 Balance 1100 / 1100 Weight 225 lb 229 lb Radiology Reports for the Last 24 Hours: 04/17/2019 CT of the chest with contrast IMPRESSION: 1. Severe coronary artery calcifications consistent with coronary artery disease 2. Pericardial thickening as described above situated mainly along the superior recess of the pericardium consistent with pericardial effusion. The density is slightly greater than expected of questionable clinical significance 3. Small bilateral pleural effusions 04/16/2019 echocardiogram Pericardium There is localized moderate sized pericardial effusion seen involving the anterolateral part of the left ventricle and anterior aspect of the right ventricle. There is no echocardiographic obvious evidence of tamponade. Conclusion 1. Normal left ventricular size, mild concentric left ventricular hypertrophy, visually estimated ejection fraction 45% with segmental wall motion abnormality described above. 2. Localized pericardial effusion as described above, there is no obvious echocardiographic evidence of tamponade or raised intrapericardial pressure. 3. If clinically indicated repeat serial studies recommended to follow-up on pericardial effusion. 4. Repeat study with Definity contrast is recommended. 5. If clinically indicated CT scan of the chest is recommended. - Constitutional no acute distress Comments: Appears comfortable - *Routine Respiratory Exam Present: CTA bilaterally (Anteriorly and posteriorly) - *Routine Cardiovascular Exam Present: RRR Comments: Monitor showing sinus rhythm with rare PVC - *Routine Abdominal Exam Present: soft, normoactive bowel sounds. Absent: tenderness - *Routine Extremities Exam Absent: edema, calf tenderness - *Routine Neurological Exam Present: alert, oriented X3 Assessment and Plan (1) Non-ST elevation [place] (NSTEMI) Current visit: Yes Status: Acute Category: Medical Code(s): I21.4 - Non-ST elevation (NSTEMI) myocardial infarction (2) Coronary arteriosclerosis Current visit: No Status: Chronic Category: Medical Code(s): I25.10 - Atherosclerotic heart disease of [place] coronary artery without angina pectoris (3) Diabetes Current visit: No Status: Chronic Qualifiers: Diabetes mellitus type: type 2 Diabetes mellitus care home insulin use: with care home use Diabetes mellitus complication status: without complication Qualified Code(s): E11.9 - Type 2 diabetes mellitus without complications; Z79.4 - senior care (current) use of insulin Category: Medical Code(s): E11.9 - Type 2 diabetes mellitus without complications (4) Hyperlipidemia Current visit: No Status: Chronic Qualifiers: Hyperlipidemia type: other hyperlipidemia Qualified Code(s): E78.49 - Other hyperlipidemia; E78.4 - Other hyperlipidemia Category: Medical Code(s): E78.5 - Hyperlipidemia, unspecified (5) Hypertensive disorder Current visit: No Status: Chronic Qualifiers: Hypertension type: essential hypertension Qualified Code(s): I10 - Essential (primary) hypertension Category: Medical Code(s): I10 - Essential (primary) hypertension (6) Ischemic cardiomyopathy Current visit: No Status: Chronic Category: Medical Code(s): I25.5 - Ischemic cardiomyopathy (7) JARON (obstructive sleep apnea) Current visit: No Status: Chronic Category: Medical Code(s): G47.33 - Obstructive sleep apnea (adult) (pediatric) (8) Pericardial effusion Current visit: Yes Status: Acute Category: Medical Code(s): I31.3 - Pericardial effusion (noninflammatory) - Assessment and plan all Dx Assessment and Plan for all problems:: Continue with Entresto. Will follow recommendations of cardiology. <Alejo Busby - Last Filed: 04/17/19 08:24> Internal Medicine - PN: Subj *Date: 04/17/19 *Time: 08:23 Exam Vital signs and Labs for Last 24 Hours: Temp Pulse Resp BP Pulse Ox 97.8 F 73 18 144/82 H 98 04/17/19 08:00 04/17/19 08:00 04/17/19 08:00 04/17/19 08:00 04/17/19 08:00 Laboratory Results - last 24 hr 04/16/19 11:25: WBC 9.8, RBC 4.62, Hgb 14.4, Hct 44.7, MCV 96.7 H, MCH 31.2, MCHC 32.3, RDW 14.5, Plt Count 200, MPV 9.3, Neut % (Auto) 82.2 H, Lymph % (Auto) 9.5 L, [place] % (Auto) 6.8, Eos % (Auto) 1.3, Baso % (Auto) 0.2, Neut # (Auto) 8.1 H, Lymph # (Auto) 0.9, [place] # (Auto) 0.7, Eos # (Auto) 0.1, Baso # (Auto) 0.0 04/16/19 11:25: Sodium 142, Potassium 4.3, Chloride 105, Carbon Dioxide 26, Anion Gap 15.3 H, BUN 17, Creatinine 1.06, Estimated Creat Clear 100, Estimated GFR 70, Est GFR ( Amer) 85, Glucose 100, Calcium 8.4 L, Total Bilirubin 0.8, AST 26, ALT 147 H, Alkaline Phosphatase 113, Troponin I 3.63 H, Total Pr otein 6.2 L, Albumin 3.0 L, Globulin 3.2, Albumin/Globulin Ratio 0.9 L 04/16/19 11:28: POC Glucose 107 04/16/19 16:06: Troponin I 3.16 H 04/16/19 16:47: POC Glucose 178 H 04/16/19 20:40: Troponin I 2.87 H 04/16/19 21:09: POC Glucose 227 H 04/17/19 05:59: POC Glucose 87 I & O for Last 24 hours: Intake & Output 04/14/19 04/15/19 04/16/19 04/17/19 23:59 23:59 23:59 23:59 Intake Total 1100 / 1100 360 / 360 Balance 1100 / 1100 360 / 360 Weight 229 lb 4.492 oz 229 lb Assessment and Plan (1) Non-ST elevation [place] (NSTEMI) Current visit: Yes Status: Acute Category: Medical Code(s): I21.4 - Non-ST elevation (NSTEMI) myocardial infarction (2) Coronary arteriosclerosis Current visit: No Status: Chronic Category: Medical Code(s): I25.10 - Atherosclerotic heart disease of [place] coronary artery without angina pectoris (3) Diabetes Current visit: No Status: Chronic Qualifiers: Diabetes mellitus type: type 2 Diabetes mellitus adjunct faculty for medical terminology insulin use: with care home use Diabetes mellitus complication status: without complication Qualified Code(s): E11.9 - Type 2 diabetes mellitus without complications; Z79.4 - termite renewal inspector (current) use of insulin Category: Medical Code(s): E11.9 - Type 2 diabetes mellitus without complications (4) Hyperlipidemia Current visit: No Status: Chronic Qualifiers: Hyperlipidemia type: other hyperlipidemia Qualified Code(s): E78.49 - Other hyperlipidemia; E78.4 - Other hyperlipidemia Category: Medical Code(s): E78.5 - Hyperlipidemia, unspecified (5) Hypertensive disorder Current visit: No Status: Chronic Qualifiers: Hypertension type: essential hypertension Qualified Code(s): I10 - Essential (primary) hypertension Category: Medical Code(s): I10 - Essential (primary) hypertension (6) Ischemic cardiomyopathy Current visit: No Status: Chronic Category: Medical Code(s): I25.5 - Ischemic cardiomyopathy (7) JARON (obstructive sleep apnea) Current visit: No Status: Chronic Category: Medical Code(s): G47.33 - Obstructive sleep apnea (adult) (pediatric) (8) Pericardial effusion Current visit: Yes Status: Acute Category: Medical Code(s): I31.3 - Pericardial effusion (noninflammatory) (9) Acute systolic CHF (congestive heart failure) Current visit: Yes Status: Acute Category: Medical Code(s): I50.21 - Acute systolic (congestive) heart failure - Assessment and plan all Dx Assessment and Plan for all problems:: Saw patient, agree with above note. Await CT scan results.
--- NOTE | 2019-04-17 09:16 | Progress Note ---
Subjective Date: 04/17/19 Time: 09:13 Principal diagnosis: NSTEMI Interval history: 63 yo WM at bedside in NAD. Denies chest pain, pressure or SOA. BP stable but not to goal. Telemetry is NSR with rare PVC's. No runs of V. tach Reviewed results of CT scan with pt and . Pericardial effusion present without evidence of tamponade on echo. EF slightly reduced to 45-50% from 50-60% last week. This may improve with time and resumption of coreg and entresto. Exam Vital signs and Labs for Last 24 Hours: Temp Pulse Resp BP Pulse Ox 97.8 F 73 18 144/82 H 98 04/17/19 08:00 04/17/19 08:00 04/17/19 08:00 04/17/19 08:00 04/17/19 08:00 Laboratory Results - last 24 hr 04/16/19 11:25: WBC 9.8, RBC 4.62, Hgb 14.4, Hct 44.7, MCV 96.7 H, MCH 31.2, MCHC 32.3, RDW 14.5, Plt Count 200, MPV 9.3, Neut % (Auto) 82.2 H, Lymph % (Auto) 9.5 L, [place] % (Auto) 6.8, Eos % (Auto) 1.3, Baso % (Auto) 0.2, Neut # (Auto) 8.1 H, Lymph # (Auto) 0.9, [place] # (Auto) 0.7, Eos # (Auto) 0.1, Baso # (Auto) 0.0 04/16/19 11:25: Sodium 142, Potassium 4.3, Chloride 105, Carbon Dioxide 26, Anion Gap 15.3 H, BUN 17, Creatinine 1.06, Estimated Creat Clear 100, Estimated GFR 70, Est GFR ( Amer) 85, Glucose 100, Calcium 8.4 L, Total Bilirubin 0.8, AST 26, ALT 147 H, Alkaline Phosphatase 113, Troponin I 3.63 H, Total Protein 6.2 L, Albumin 3.0 L, Globulin 3.2, Albumin/Globulin Ratio 0.9 L 04/16/19 11:28: POC Glucose 107 04/16/19 16:06: Troponin I 3.16 H 04/16/19 16:47: POC Glucose 178 H 04/16/19 20:40: Troponin I 2.87 H 04/16/19 21:09: POC Glucose 227 H 04/17/19 05:59: POC Glucose 87 I & O for Last 24 hours: Intake & Output 04/14/19 04/15/19 04/16/19 04/17/19 11:59 11:59 11:59 11:59 Intake Total 1460 / 1460 Balance 1460 / 1460 Weight 225 lb 229 lb - *Routine HEENT Exam Head: Present: normocephalic Eye: Present: EOMI, PERRL ENT: Present: mucous membranes moist - *Routine Respiratory Exam Present: CTA bilaterally. Absent: accessory muscle use, rales, rhonchi, wheezes - *Routine Cardiovascular Exam Present: RRR. Absent: murmur, gallop, rubs - *Routine Extremities Exam Absent: edema, calf tenderness - *Routine Neurological Exam Present: alert, oriented X3, moving all extremities Progress Note: A&P (1) Non-ST elevation [place] (NSTEMI) Status: Acute Current Visit: Yes (2) Coronary arteriosclerosis Status: Chronic Current Visit: No (3) Diabetes Status: Chronic Current Visit: No (4) Hyperlipidemia Status: Chronic Current Visit: No (5) Hypertensive disorder Status: Chronic Current Visit: No (6) Ischemic cardiomyopathy Status: Chronic Current Visit: No (7) JARON (obstructive sleep apnea) Status: Chronic Current Visit: No (8) Pericardial effusion Status: Acute Current Visit: Yes (9) Acute systolic CHF (congestive heart failure) Status: Acute Current Visit: Yes Assessment and Plan for All Diagnoses:: Clinically stable. Troponins trending down. Ambulate in halls today to monitor for arrhythmias. Possibly home this evening on ASA, plavix, atorvastatin, coreg 3.125 mg BID and entresto 24/26 mg BID. Discussed LIMITED activity over the next couple of weeks.
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
== END 2019-04-17 18:45 | disposition home or self-care (01) | DRG 280 ==
LOC: ER 11:04 → 2ND 13:15
PROVIDERS: ADMIT Family Medicine; ATTEND Family Medicine
CPT/HCPCS: Q9967

== ENCOUNTER → 2019-04-29 07:48 | Outpatient (CLI) | payer MEDICARE, OTHER, SELFPAY | PROVIDERS: Visit Provider Internal Medicine Cardiovascular Disease | DX: I25.10 Atherosclerotic heart disease of native coronary artery without angina pectoris (principal); I50.9 Heart failure, unspecified | CPT/HCPCS: 36415 ==

== ENCOUNTER → 2019-04-30 07:05 | Outpatient (CLI) | payer MEDICARE, OTHER, SELFPAY ==
[2019-04-30 08:55] LABS: Anion Gap 12.7 mEq/L (5-15); Blood Urea Nitrogen 17 mg/dL (7-18); Carbon Dioxide 30 mmol/L (21.0-32.0); Chloride 104 mmol/L (98-107); Creatinine,Serum 0.91 mg/dL (0.70-1.30); Estimated Glomerular Filt Rate 84 ml/min (>60); GFR (African American) 101 ML/MIN (>60); Glucose 133 mg/dL (74-106); Potassium 4.7 mmoL/L (3.5-5.1); Sodium 142 mmol/L (136-145)
== END ==
PROVIDERS: Visit Provider Internal Medicine
DX: I25.10 Atherosclerotic heart disease of native coronary artery without angina pectoris; I50.9 Heart failure, unspecified
CPT/HCPCS: 80048

== ENCOUNTER → 2019-05-01 07:57 | Outpatient (CLI) | payer MEDICARE, OTHER, SELFPAY ==
--- NOTE | 2019-05-01 07:58 | CA_ITS ---
APPROVED REPORT EXAM: Limited 2D Echocardiogram Road Train Driver: Giselle MendozaDARREL Ht: 5 ft 8 in Wt: 227lbs BSA: 2.16 BP: 189/101 mmHg Indications: F/U PERICARDIAL EFFUSION, EF OF 45% ON ECHO ON 04/16/19 Echo Enhancing Agent Indication: Endocardial border delineation Agent(s) / Amount(s) Used: Definity 1 cc 2D Dimensions IVSd 2.00 cm M: 0.6-1.2 LVEF (Visual) 57.00 % PWd 1.30 cm M: 0.6 - 1.2 LVDd 5.30 cm M: 4.2 - 5.9 LVDs 3.70 cm M: 2.5 - 4.0 M-Mode Dimensions LA Diam 4.60 cm (1.9-4.0) Ao Diam 2.60 cm (2.0-3.7) AV Cusp 2.10 cm (1.5-2.6) Left Ventricle Left atrium is mildly enlarged, left ventricle is normal size, mild concentric left ventricular hypertrophy, visually estimated ejection fraction 50%, there is discrete wall motion abnormality involving the anterolateral wall. There is no left ventricular thrombus seen. Right Ventricle Right atrium and right ventricular mildly enlarged with normal contractility. Aortic Valve Aortic valve is minimally thickened and fibrosed, there is no aortic stenosis . Mitral Valve Mitral valve is grossly normal. Tricuspid Valve Tricuspid valve is grossly normal. Pulmonic Valve Pulmonic valve is not visualized. Great Vessels Aortic root is normal size. Pericardium No significant pericardial effusion noted. Conclusion 1. Technically limited study was performed to evaluate left ventricular systolic function and pericardial effusion 2. Mildly low left atrium, normal left ventricular size, mild concentric left ventricular hypertrophy, visually estimated ejection fraction approximately 45 to 50% with segmental wall motion abnormality described above, there is no left ventricular thrombus seen. 3. Mildly enlarged right ventricle with normal contractility. 4. No significant pericardial effusion noted. Electronically signed by : Nicolas Norton, 05/03/2019 16:25:46
== END ==
PROVIDERS: PCP Family Medicine; Visit Provider Internal Medicine Cardiovascular Disease
DX: I11.0 Hypertensive heart disease with heart failure (principal); I50.22 Chronic systolic (congestive) heart failure
CPT/HCPCS: 93306; 93308; Q9957

== ENCOUNTER → 2019-06-05 07:27 | Outpatient (CLI) | payer MEDICARE, OTHER, SELFPAY ==
--- NOTE | 2019-06-05 07:28 | CA_ITS ---
[facility] RADIOLOGICAL CONSULTATION Patient Name : DWIGHT AREVALO X-RAY # : [id number] Physician: ARMIN GHOTRA AGE: 63Y : 1955 00:00:00 ( M ) Exam : CA ECHO LIMITED ACC # : [id number] Study Date : 06/05/2019 07:38:45 Patient Class : O FINAL REPORT CLINICAL DATA: FINDINGS: TRANSCRIBED REPORT EXAM: Comprehensive 2D, Doppler, and color-flow Echocardiogram Ht: 5 ft 8 in Wt: 226lbs BSA: 2.15 BP: 148/85 mmHg Indications: Recheck effusion and EF. 45-50% EF on echo 05/01/19. history CM, CHF, hx of [place], hyperlipidemia. ordered as a limited echo M-Mode Dimensions RVDd 2.81 cm (0.9-2.6) LVDd 4.89 cm (3.5-5.7) LVDs 3.72 cm (3.5-5.7) IVSd 1.52 cm (0.6-1.1) PWd 0.95 cm (0.6-1.1) EF (Teich) 47.60% FS 23.90% EDV (Teich) 112.30 mL ESV (Teich) 58.90 mL Electronically signed by : IMPRESSION: Dictated by at Transcribed by at
== END ==
PROVIDERS: PCP Family Medicine; Visit Provider Physician Assistant
DX: I21.4 Non-ST elevation (NSTEMI) myocardial infarction (principal); I31.3 Pericardial effusion (noninflammatory)
CPT/HCPCS: 93308

== ENCOUNTER 2019-06-10 08:43 | Outpatient (RCR) | payer MEDICARE, OTHER, SELFPAY | END 2019-06-10 08:50 | disposition home or self-care (01) | LOC: PT 08:43 | PROVIDERS: Visit Provider Internal Medicine | DX: Z95.5 Presence of coronary angioplasty implant and graft (principal) | CPT/HCPCS: 93798 ==

== ENCOUNTER → 2019-06-26 06:59 | Outpatient (CLI) | payer MEDICARE, OTHER, SELFPAY ==
[2019-06-26 08:12] LABS: Anion Gap 11.2 mEq/L (5-15); Blood Urea Nitrogen 14 mg/dL (7-18); Calcium 8.1 mg/dL (8.5-10.1); Carbon Dioxide 30 mmol/L (21.0-32.0); Chloride 104 mmol/L (98-107); Creatinine,Serum 0.85 mg/dL (0.70-1.30); Estimated Glomerular Filt Rate 90 ml/min (>60); GFR (African American) 109 ML/MIN (>60); Glucose 86 mg/dL (74-106); Potassium 4.2 mmoL/L (3.5-5.1); Sodium 141 mmol/L (136-145)
== END ==
PROVIDERS: Visit Provider Nurse Practitioner Family
DX: I50.22 Chronic systolic (congestive) heart failure (principal); R06.02 Shortness of breath
CPT/HCPCS: 36415; 80048

== ENCOUNTER → 2019-07-15 07:08 | Outpatient (CLI) | payer MEDICARE, OTHER, SELFPAY ==
[2019-07-15 07:54] LABS: Anion Gap 14.1 mEq/L (5-15); Blood Urea Nitrogen 14 mg/dL (7-18); Calcium 8.6 mg/dL (8.5-10.1); Carbon Dioxide 26 mmol/L (21.0-32.0); Chloride 105 mmol/L (98-107); Creatinine,Serum 0.94 mg/dL (0.70-1.30); Estimated Glomerular Filt Rate 81 ml/min (>60); GFR (African American) 97 ML/MIN (>60); Glucose 142 mg/dL (74-106); Potassium 4.1 mmoL/L (3.5-5.1); Sodium 141 mmol/L (136-145)
== END ==
PROVIDERS: Visit Provider Physician Assistant
DX: E11.9 Type 2 diabetes mellitus without complications (principal); E78.2 Mixed hyperlipidemia; I10 Essential (primary) hypertension; I25.10 Atherosclerotic heart disease of native coronary artery without angina pectoris; I25.5 Ischemic cardiomyopathy; R06.02 Shortness of breath; R07.9 Chest pain, unspecified; Z79.4 Long term (current) use of insulin
CPT/HCPCS: 36415; 80048

== ENCOUNTER → 2019-09-02 06:59 | Outpatient (CLI) | payer MEDICARE, OTHER, SELFPAY ==
[2019-09-02 07:46] LABS: Anion Gap 10.1 mEq/L (5-15); Blood Urea Nitrogen 19 mg/dL (7-18); Calcium 8.7 mg/dL (8.5-10.1); Carbon Dioxide 30 mmol/L (21.0-32.0); Chloride 105 mmol/L (98-107); Creatinine,Serum 1.06 mg/dL (0.70-1.30); Estimated Glomerular Filt Rate 70 ml/min (>60); GFR (African American) 85 ML/MIN (>60); Glucose 114 mg/dL (74-106); Potassium 4.1 mmoL/L (3.5-5.1); Sodium 141 mmol/L (136-145)
== END ==
PROVIDERS: Visit Provider Physician Assistant
DX: E11.9 Type 2 diabetes mellitus without complications (principal); E78.2 Mixed hyperlipidemia; G47.33 Obstructive sleep apnea (adult) (pediatric); I11.0 Hypertensive heart disease with heart failure; I25.10 Atherosclerotic heart disease of native coronary artery without angina pectoris; I25.5 Ischemic cardiomyopathy; I50.22 Chronic systolic (congestive) heart failure; R06.02 Shortness of breath; Z79.4 Long term (current) use of insulin
CPT/HCPCS: 36415; 80048; 83880

== ENCOUNTER → 2019-12-09 06:18 | Outpatient (CLI) | payer MEDICARE, OTHER, SELFPAY ==
--- NOTE | 2019-12-09 06:36 | NM_ITS ---
APPROVED REPORT Exam: Nuclear Stress Test Indication: CAD, 11 STINTS, HTN, OBESITY, DM, FM.HX., ANGINA Patient Location: AD, 11 ASTINTS Stress Tech: Lesa Medellin NM Tech:Nneka Garcia ARRT RT (R)(N)(M) Ht: 5 ft 8 in Wt: 222 lbs HR: 68 bpm BP: 156/83 mmHg BSA: 2.14 m2 BMI: 33.7 History: CAD, 11 STINTS, HTN, OBESITY, DM, FM.HX., ANGINA Procedure: Patient exercised on Vincent protocol 8:19 minutes and sec, resting heart rate 68 bpm, resting blood pressure 156/83 mmHg, with exercise maximum heart rate achived was 137 bpm which is Greater than 85 % of the maximum predicted heart rate and blood pressure was 178/90 mmHg. Patient denied any complaint of chest pain. Patient has Good exercise capacity, achieved 10.1 METs of workload on treadmill, the blood pressure response to exercise was Adequate. Electrocardiogram Resting electrocardiogram showed sinus rhythm, with exercise there is additional millimeter ST segment depression noted from the baseline EKG. The EKG portion of the exercise Myoview is nondiagnostic due to baseline abnormal EKG. Cardiac Stress and Resting SPECT Images: Cardiac Stress and Resting SPECT images were obtained using technetium 99m Myoview 31.6 mCi stress and 10.42 mCi at rest. Gated SPECT for analysis of segmental wall motion and calculation of the ejection fraction also done. Cardiac stress and resting SPECT images show a fixed defect involving the inferolateral lateral wall consistent with area of myocardial scarring, in addition there is reversible ischemia involving the anterior apical and anterolateral wall. Computer derived ejection fraction is 41% with marked hypokinesis involving the inferolateral and lateral wall, right ventricle is normal size and contractility. Conclusion: 1. The EKG portion of the exercise Myoview is nondiagnostic due to baseline EKG. Patient has good exercise capacity achieved 10.1 mets of workload on treadmill, the blood pressure response to exercise was adequate. 2. Scintigraphic evidence of reversible ischemia involving the anterior apical and anterolateral wall, in addition there is myocardial scarring involving the inferolateral and lateral wall. Computer derived ejection fraction is 41% with segmental wall motion abnormality described above, right ventricle is normal size and contractility. 3. Abnormal exercise Myoview study. Electronically signed by : Nicolas Norton, 12/09/2019 21:21:49
--- NOTE | 2019-12-09 06:36 | CA_ITS ---
APPROVED REPORT Exam: Exercise Treadmill Technologist: Lesa Medellin Ht: 5 ft 6 in Wt: 68 lbs BSA: 1.26 m2 HR: 68 bpm BP: 156/83 mmHg Indications: CAD, Atypical Angina Medical History Medications: Furosemide (LASIX),,,,, Aspirin,,,,, Gabapentin,,,,, Carvedilol,,,,, INSULIN,,,,, CloPIdogrel,,,,, Nitroglycerin,,,,, Sacubitril,,,,, EMpagliflozin/Metformin,,,,, Stress Test Details Test: Vincent HR Resting HR: 82 bpm Max Heart Rate (APMHR): 154 bpm Max HR Achieved: 144 bpm Target HR (85% APMHR): 130 bpm % of APMHR: 93 Recovery HR: 82 bpm BP Resting BP: 156.0/83.0 mmHg Max BP: 184.0/90.0 mmHg Recovery BP: 149.0/82.0 mmHg ECG Clinical Exercise duration: 08:19 min Highest Stage Achieved: Exercise capacity: 10.1 METs Stress ECG Conclusion Resting ECG: Sinus rhythm Vincent Protocol completed. Patient exercised 08:19. Test stopped due to shortness of breath and fatigue. Symptoms: Shortness of breath and fatigue during peak exercise. Resolved in recovery. No chest pain. Arrhythmias/Ectopy: Occasional PVC. Occasional PAC. ST-T Changes: Less than 1.5mm ST depression. Conclusion: Images to follow. Test Summary REST . . . . . . . Sitting REST . . . . . . . Standing REST 15:45 0.0 0.0 82 . 156/ 83 . . Stage 1 01:00 10.0 1.7 84 . . . . Stage 1 02:00 10.0 1.7 92 . . . . Stage 1 03:00 10.0 1.7 92 . 160/ 88 . . Stage 2 01:00 12.0 2.5 103 . . . . Stage 2 02:00 12.0 2.5 101 . . . . Stage 2 03:00 12.0 2.5 110 . 164/ 86 . . Stage 3 01:00 14.0 3.4 122 . . . . Stage 3 . . . . . . . Cardiolite injected Stage 3 02:00 14.0 3.4 138 . . . . Stage 3 02:19 14.0 3.4 132 . 178/ 90 . Stop exercise at 08:19 RECOVERY 01:00 0.0 0.0 116 . 184/ 90 . . RECOVERY 02:00 0.0 0.0 95 . 184/ 90 . . RECOVERY 03:00 0.0 0.0 88 . 184/ 90 . . RECOVERY 04:00 0.0 0.0 87 . 172/ 84 . . RECOVERY 05:00 0.0 0.0 81 . 144/ 82 . . RECOVERY 05:03 0.0 0.0 81 . 144/ 82 . . Electronically signed by : Nicolas Norton, 12/09/2019 21:05:23
--- NOTE | 2019-12-09 09:18 | HMH.ITSHM ---
VALSARTAN, NITRO, INSULIN, FUROSEMIDE, CLOPIDOGREL, CAVEDILOL, ATORVASTATIN, ASPIRIN, GABAPENTIN, METFORMIN
== END ==
PROVIDERS: PCP Family Medicine; Visit Provider Physician Assistant
DX: E11.9 Type 2 diabetes mellitus without complications (principal); E78.5 Hyperlipidemia, unspecified; G47.33 Obstructive sleep apnea (adult) (pediatric); I11.9 Hypertensive heart disease without heart failure; I20.8 Other forms of angina pectoris; I20.9 Angina pectoris, unspecified; I25.5 Ischemic cardiomyopathy; I50.22 Chronic systolic (congestive) heart failure; R06.00 Dyspnea, unspecified; Z79.4 Long term (current) use of insulin
CPT/HCPCS: 78452; 93017; A9502

== ENCOUNTER → 2020-04-13 07:36 | Outpatient (CLI) | payer MEDICARE, OTHER, SELFPAY ==
--- NOTE | 2020-04-13 07:37 | CA_ITS ---
APPROVED REPORT Payment Analyst: CT Laterality: Bilateral Indications: arm numbness Risk Factors Hypertension: Hyperlipidemia Doppler Spectral Velocity Analysis ECA (R) 90.50/10.90 cm/s ECA (L) 88.00/13.50 cm/s dICA (R) 59.90/19.80 cm/s dICA (L) 66.30/19.80 cm/s Xochitl (R) 74.90/23.50 cm/s Xochitl (L) 71.60/27.30 cm/s pICA (R) 62.60/21.40 cm/s pICA (L) 50.50/15.40 cm/s dCCA (R) 86.50/17.10 cm/s dCCA (L) 99.20/13.50 cm/s pCCA (R) 88.30/11.10 cm/s pCCA (L) 126.20/19.30 cm/s Vert (R) 28.40/10.60 cm/s Vert (L) 47.90/14.20 cm/s ICA/CCA 0.90 ICA/CCA 0.70 Findings Duplex evaluation demonstrates stenosis of the right proximal internal carotid artery <20% with PSV <140 cm/sec, EDV <100 cm/sec, and IC/CC Ratio <4.0. Duplex evaluation demonstrates stenosis of the left proximal internal carotid artery <20% with PSV <140 cm/sec, EDV <100 cm/sec, and IC/CC Ratio <4.0. Duplex evaluation demonstrates antegrade flow of the bilateral Vertebral Arteries. Bilateral thyroid cysts noted. Conclusion Duplex evaluation demonstrates stenosis of the right proximal internal carotid artery <20% with PSV <140 cm/sec, EDV <100 cm/sec, and IC/CC Ratio <4.0. Duplex evaluation demonstrates stenosis of the left proximal internal carotid artery <20% with PSV <140 cm/sec, EDV <100 cm/sec, and IC/CC Ratio <4.0. Duplex evaluation demonstrates antegrade flow of the bilateral Vertebral Arteries. Bilateral thyroid cysts noted. Electronically signed by : Reji Chau MD 04/13/2020 17:13:17
== END ==
PROVIDERS: PCP Family Medicine; Visit Provider Urology
DX: E78.5 Hyperlipidemia, unspecified (principal); I11.9 Hypertensive heart disease without heart failure; I25.10 Atherosclerotic heart disease of native coronary artery without angina pectoris; I25.5 Ischemic cardiomyopathy; I50.22 Chronic systolic (congestive) heart failure; R06.00 Dyspnea, unspecified; R20.0 Anesthesia of skin; R20.2 Paresthesia of skin
CPT/HCPCS: 93880

== ENCOUNTER → 2020-04-23 09:09 | Outpatient (CLI) | payer MEDICARE, OTHER, SELFPAY ==
--- NOTE | 2020-04-23 09:12 | US_ITS ---
PROCEDURE: US THYROID CLINICAL INDICATION: Thyroid cyst COMPARISON: No exams were available for comparison FINDINGS: Right lobe: 4 x 2.1 x 2.1 cm. There is an 18 x 14 mm mixed nodule in the mid polar region on the right containing some coarse central calcification. This is a TR level 4 nodule greater than 1.5 cm. Recommend ultrasound-guided FNA. The left lobe is 4.3 x 1.5 x 1.8 cm. There is some coarse calcification centrally on the left. IMPRESSION: Moderately suspicious nodule on the right. Suggest ultrasound-guided fine needle aspiration Dictated by: Reji Chau MD 04/23/2020 18:04 Reji Chau MD in [place] 04/23/2020 18:04
== END ==
PROVIDERS: PCP Family Medicine; Visit Provider Physician Assistant
DX: E04.1 Nontoxic single thyroid nodule (principal)
CPT/HCPCS: 76536

== ENCOUNTER → 2020-05-05 12:33 | Outpatient (CLI) | payer MEDICARE, OTHER, SELFPAY ==
--- NOTE | 2020-05-05 12:46 | US_ITS ---
PROCEDURE: US FNA THYROID CLINICAL INDICATION: RT THROID CYST Dominant right thyroid nodule COMPARISON: US US THYROID from 04/23/2020 TECHNIQUE: Pre biopsy exam is performed confirming dominant solid nodule in the mid polar region on the right. This was targeted for biopsy. Following obtaining informed consent, using aseptic technique and local anesthesia with buffered lidocaine, fine-needle aspiration was performed of the nodule of interest using sonographic guidance. 3 passes were made into the nodule with a [id number]-yxniz needle. Specimen was given to cytology. FINDINGS: CYTOLOGY: Negative for malignancy. Consistent with a benign follicular nodule IMPRESSION: Ultrasound-guided FNA of the right lobe of the thyroid gland shows benign follicular nodule. The patient tolerated the procedure well without evidence of immediate complications and left the ultrasound suite in stable condition. Dictated by: Reji Chau MD 05/11/2020 10:33 Reji Chau MD in [place] 05/11/2020 10:33
== END ==
PROVIDERS: PCP Family Medicine; Visit Provider Physician Assistant
DX: E04.1 Nontoxic single thyroid nodule (principal)
CPT/HCPCS: 10005; 76942; 88173

== ENCOUNTER → 2020-05-26 11:44 | Outpatient (CLI) | payer MEDICARE, OTHER, SELFPAY ==
[2020-05-26 14:20] LABS: Calcium 9.1 mg/dl (8.4-10.2)
[2020-05-26 14:33] LABS: Free T4 (Free Thyroxine) 1.11 ng/dl (0.78-2.19)
[2020-05-26 14:48] LABS: Thyroid Stimulating Hormone 1.66 uIU/mL (0.465-4.68)
[2020-05-28 10:58] LABS: Thyroid Peroxidase Antibodies <9 IU/mL (0-34)
[2020-05-29 13:26] LABS: Thyroid Stimulating Immunoglob <0.10 IU/L (0.00-0.55)
[2020-05-30 10:23] LABS: Calcitonin <2.0 pg/mL (0.0-8.4)
== END ==
PROVIDERS: Visit Provider Otolaryngology
DX: E04.1 Nontoxic single thyroid nodule (principal)
CPT/HCPCS: 36415; 82308; 82310; 84439; 84443; 84445; 86376

== ENCOUNTER → 2020-07-14 09:44 | Outpatient (CLI) | payer MEDICARE, OTHER, SELFPAY ==
--- NOTE | 2020-07-14 09:44 | US_ITS ---
PROCEDURE: US THYROID CLINICAL INDICATION: hx right nodule 3 mo fu rt nodule and recent bx COMPARISON: US US THYROID from 04/23/2020 US US FNA THYROID from 05/05/2020 FINDINGS: Right lobe: 2.1cm x 4.0cm x 2.4cm. Previously described right-sided thyroid nodule is once again noted with heterogeneous echogenicity and suggestion of some internal calcification. This measures 1.7 x 1.2 cm in the mid aspect of the right lobe of the thyroid gland and is not significantly changed. Left lobe: 1.1cm x 4.2cm x 2.0cm Isthmus: Unremarkable Additional findings: IMPRESSION: No change dominant nodule on the right which was recently biopsied consistent with a benign follicular nodule on the FNA.. No change calcification in the left lobe. Dictated by: Reji Chau MD 07/15/2020 12:25 Reji Chau MD in [place] 07/15/2020 12:25
== END ==
PROVIDERS: PCP Family Medicine; Visit Provider Otolaryngology
DX: E04.1 Nontoxic single thyroid nodule (principal)
CPT/HCPCS: 76536

== ENCOUNTER → 2020-10-21 10:31 | Outpatient (CLI) | payer MEDICARE, OTHER, SELFPAY ==
--- NOTE | 2020-10-21 10:31 | US_ITS ---
PROCEDURE: US THYROID CLINICAL INDICATION: thyroid nodule Air the COMPARISON: US US THYROID from 07/14/2020 FINDINGS: Right lobe: The right lobe is 3.8 x 2.2 x 2 cm. A complex solid nodules once again noted in the mid aspect of the right lobe measuring 16 x 12 mm not significantly changed. There is some central calcification which appears course. Left lobe: 3.8 x 1.2 x 1.7 cm. Coarse calcification is present centrally with posterior acoustical shadowing similar to the previous exam. IMPRESSION: No change right thyroid nodule and left thyroid calcification. Dictated by: Reji Chau MD 10/21/2020 18:06 Reji Chau MD in [place] 10/21/2020 18:06
== END ==
PROVIDERS: PCP Family Medicine; Visit Provider Otolaryngology
DX: E04.1 Nontoxic single thyroid nodule (principal)
CPT/HCPCS: 76536

== ENCOUNTER → 2020-12-01 07:06 | Outpatient (CLI) | payer MEDICARE, OTHER, SELFPAY ==
[2020-12-01 08:42] LABS: Alanine Aminotransferase 29 U/L (12-78); Aspartate Amino Transferase 28 U/L (17-59); Bilirubin,Unconjugated 0.8 mg/dL (0.0-1.1)
[2020-12-01 08:43] LABS: Alkaline Phosphatase 78 U/L (38-126); Bilirubin,Indirect 0.8 mg/dL (0.0-0.9); Bilirubin,Total 0.8 mg/dl (0.2-1.3); Chol/HDL Ratio 2.8 (1-3.5); Cholesterol 98 mg/dl (140-200); HDL Cholesterol 35 mg/dl (40-60); Total Protein,Serum 6.2 g/dl (6.3-8.2); Triglycerides 59 mg/dl (30-150); VLDL Cholesterol 12 mg/dL (0-40)
[2020-12-01 08:54] LABS: Direct LDL Cholesterol 49.47 mg/dL (100-129)
[2020-12-01 09:15] LABS: Thyroid Stimulating Hormone 2.39 uIU/mL (0.465-4.68)
== END ==
PROVIDERS: Otolaryngology; Visit Provider Physician Assistant
DX: G47.33 Obstructive sleep apnea (adult) (pediatric) (principal); I21.4 Non-ST elevation (NSTEMI) myocardial infarction; I25.10 Atherosclerotic heart disease of native coronary artery without angina pectoris; I25.5 Ischemic cardiomyopathy; I50.22 Chronic systolic (congestive) heart failure; E11.9 Type 2 diabetes mellitus without complications; E78.5 Hyperlipidemia, unspecified; I11.9 Hypertensive heart disease without heart failure; R06.00 Dyspnea, unspecified; E04.1 Nontoxic single thyroid nodule; E04.9 Nontoxic goiter, unspecified; Z79.4 Long term (current) use of insulin
CPT/HCPCS: 36415; 80061; 80076; 84439; 84443

== ENCOUNTER → 2021-04-26 12:50 | Outpatient (CLI) | payer MEDICARE, OTHER, SELFPAY ==
--- NOTE | 2021-04-26 12:50 | US_ITS ---
PROCEDURE: US THYROID CLINICAL INDICATION: thyroid nodule COMPARISON: US US THYROID from 04/23/2020 US US FNA THYROID from 05/05/2020 US US THYROID from 10/21/2020 FINDINGS: Right lobe: The right lobe is 3.8 x 2.1 x 2.1 cm. 16 x 13 mm mixed nodules present with central calcification. The nodule is taller than wide fairly well-circumscribed and not significantly changed. This nodule was previously sampled with FNA and which shown to be a benign follicular nodule. Left lobe: 3.8 x 1.4 x 2 cm with nonspecific coarse calcifications Isthmus: Unremarkable Additional findings: IMPRESSION: Stable ultrasound appearance of the thyroid gland with no change in the right-sided nodule. Dictated by: Reji Chau MD 04/27/2021 10:01 Reji Chau MD in [place] 04/27/2021 10:01
== END ==
PROVIDERS: PCP Family Medicine; Visit Provider Otolaryngology
DX: E04.9 Nontoxic goiter, unspecified (principal)
CPT/HCPCS: 76536

== ENCOUNTER 2021-04-28 08:58 | Emergency (ER) | payer MEDICARE, OTHER, SELFPAY ==
[2021-04-28 08:58] VITALS: BP 117/65; PULSE 58; RESP 15; TEMP 36.8; O2SAT 94; BMI 33.4
--- NOTE | 2021-04-28 08:58 | ECG_ITS ---
APPROVED REPORT Exam: Resting ECG HR:54 bpm ECG Measurements Heart Rate 54 AXES AK 188 P 3 QRSd 80 QRS -21 QT 412 T -30 QTc 390 Conclusion Sinus bradycardia Low voltage QRS Cannot rule out Anterior infarct, age undetermined Abnormal ECG Electronically signed by : Tony Deshpande MD 04/28/2021 20:41:01
--- NOTE | 2021-04-28 09:14 | XR_ITS ---
PROCEDURE: XR CHEST PORTABLE CLINICAL HISTORY: cp Chest pain COMPARISON: DX XR CHEST 2V from 04/12/2019 CR XR CHEST PORTABLE from 04/16/[address] CHEST W CON from 04/17/2019 FINDINGS: Borderline cardiomegaly without failure. Coronary artery calcification and or stents noted. The lungs are clear without infiltrates, suspicious nodules, or pleural effusions. No acute bony abnormalities. IMPRESSION: No acute findings. Dictated by: Reji Chau MD 04/28/2021 09:37 Reji Chau MD in [place] 04/28/2021 09:37
[2021-04-28 09:30] VITALS: BP 107/67; PULSE 51; RESP 24; O2SAT 89
[2021-04-28 09:31] LABS: Alanine Aminotransferase 23 U/L (12-78); Albumin Level 3.5 g/dl (3.5-5.0); Albumin/Globulin Ratio 1.5 (1.1-1.8); Alkaline Phosphatase 72 U/L (38-126); Anion Gap 11.7 mEq/L (5-15); Aspartate Amino Transferase 26 U/L (17-59); Bilirubin,Total 0.8 mg/dl (0.2-1.3); Blood Urea Nitrogen 13 mg/dl (9-20); Calcium 8.4 mg/dl (8.4-10.2); Carbon Dioxide 26 mmol/L (22.0-30.0); Chloride 105 mmol/L (98-107); Creatinine Clearance Estimated 101 mL/min (50-200); Estimated Glomerular Filt Rate 112 ml/min (>60); GFR (African American) 136 ML/MIN (>60); Globulin 2.4 g/dL (1.3-3.2); Glucose 93 mg/dl (74-100); Potassium 3.7 mmoL/L (3.5-5.1); Sodium 139 mmol/L (136-145); Total Protein,Serum 5.9 g/dl (6.3-8.2)
[2021-04-28 09:43] LABS: NT Pro Brain Natriuretic Pep. 244 pg/mL (0-125); Troponin I < 0.01 ng/ml (0.00-0.034)
[2021-04-28 10:00] VITALS: BP 109/64; PULSE 47; RESP 19; O2SAT 92
[2021-04-28 10:31] VITALS: BP 111/67; PULSE 52; RESP 18; O2SAT 90
[2021-04-28 10:53] LABS: Coronavirus 19, PCR Not Detected (NotDetected); Influenza A, PCR Not Detected (NotDetected); Influenza B, PCR Not Detected (NotDetected)
--- NOTE | 2021-04-28 11:03 | PC.NURSE ---
called lab to check on status of CBC, spoke with Michelle states they are currently having instruments issues, no estimated time to results
[2021-04-28 11:48] LABS: Basophils # 0.1 K/mm3 (0-0.2); Basophils % 0.9 % (0.1-2.0); Eosinophils # 0.2 K/mm3 (0.0-0.4); Eosinophils % 3.7 % (0.1-12.0); Hematocrit 49.8 % (42.0-52.0); Hemoglobin 16.4 g/dL (14.1-18.0); Lymphocytes # 0.8 K/mm3 (0.7-4.5); Lymphocytes % 12.5 % (10-50); Mean Corpuscular HGB Conc 32.9 g/dL (31.8-35.4); Mean Corpuscular Hemoglobin 31.1 pg (27.0-31.2); Mean Corpuscular Volume 94.7 fl (80-94); Mean Platelet Volume 9.4 fl (7.4-10.4); Monocytes # 0.5 K/mm3 (0.1-1.0); Monocytes % 7.2 % (1.7-9.3); Neutrophils # 4.9 K/mm3 (1.8-7.8); Neutrophils % 75.6 % (37.0-80.0); Platelet Count 187 K/mm3 (142-424); Red Blood Count 5.26 M/mm3 (4.60-6.20); Red Cell Distribution Width 13.8 % (11.5-17.5); White Blood Count 6.5 K/mm3 (4.8-10.8)
[2021-04-28 13:09] LABS: Troponin I < 0.01 ng/ml (0.00-0.034)
--- NOTE | 2021-04-28 13:22 | HMH.EDGENADL ---
ED Disposition Clinical Impression: Malaise, Hypoglycemia Disposition: Home, Self-Care Condition on Discharge: Good Instructions: DI for Hypoglycemia Additional Instructions: Monitor your blood glucose additional times throughout the day. Make sure you are eating a diabetic diet. Follow-up with your PCP tomorrow. Call for an appointment. Referrals: Alejo Busby MD [Primary Care Provider] - 04/29/21 (call for appt) Time of Disposition: 13:27 - Critical Care Critical Care Time: No Attestation: On 04/28/21, the high probability of a clinically significant, sudden or life threatening deterioration of the following system(s) required my full and direct attention, intervention and personal management. The time I documented below is in addition to time spent performing reported procedures but includes the following listed in this critical care notation. Medical Decision Making - Medical Records Medical records reviewed: Yes: I reviewed the patient's medical records. - Maxi Inquiry Pt receiving controlled substance: No Vital Signs: 04/28/21 08:58 04/28/21 09:30 04/28/21 10:00 Temperature 98.2 F Temperature Source Oral Pulse Rate 51 L 47 L Pulse Rate [Right Radial] 58 L Respiratory Rate 15 24 19 Blood Pressure 107/67 L 109/64 L Blood Pressure [Right Arm] 117/65 Blood Pressure Mean 79 78 Blood Pressure Mean [Right Arm] 82 Blood Pressure Source [Right Arm] Automatic Cuff Blood Pressure Position [Right Arm] Sitting 02 Sat by Pulse Oximetry 94 L 89 L 92 L Oxygen Delivery Method Room Air 04/28/21 10:31 Temperature Temperature Source Pulse Rate 52 L Pulse Rate [Right Radial] Respiratory Rate 18 Blood Pressure 111/67 Blood Pressure [Right Arm] Blood Pressure Mean 81 Blood Pressure Mean [Right Arm] Blood Pressure Source [Right Arm] Blood Pressure Position [Right Arm] 02 Sat by Pulse Oximetry 90 L Oxygen Delivery Method - Lab Data Lab results reviewed: Yes: I reviewed the patient's lab results. Lab Results 04/28/21 09:09: WBC 6.5, RBC 5.26, Hgb 16.4, Hct 49.8, MCV 94.7 H, MCH 31.1, MCHC 32.9, RDW 13.8, Plt Count 187, MPV 9.4, Neut % (Auto) 75.6, Lymph % (Auto) 12.5, Cherry % (Auto) 7.2, Eos % (Auto) 3.7, Baso % (Auto) 0.9, Neut # (Auto) 4.9, Lymph # (Auto) 0.8, Cherry # (Auto) 0.5, Eos # (Auto) 0.2, Baso # (Auto) 0.1 04/28/21 09:09: Sodium 139, Potassium 3.7, Chloride 105, Carbon Dioxide 26, Anion Gap 11.7, BUN 13, Creatinine 0.70, Estimated Creat Clear 101, Estimated GFR 112, Est GFR ( Amer) 136, Glucose 93, Calcium 8.4, Total Bilirubin 0.8, AST 26, ALT 23, Alkaline Phosphatase 72, Troponin I < 0.01, NT-Pro-B Natriuret Pep 244 H, Total Protein 5.9 L, Albumin 3.5, Globulin 2.4, Albumin/Globulin Ratio 1.5 04/28/21 10:45: SARS-CoV-2 (PCR) Not detected, Influenza A Untype (PCR) Not detected, Influenza Type B (PCR) Not detected 04/28/21 12:32: Troponin I < 0.01 Result diagrams: 04/28/21 09:09 04/28/21 09:09 - Radiology Data #1 Image(s): Chest Image Reviewed: Yes I reviewed the patient's radiology results Preliminary Findings: Normal/NAD No acute findings - ECG Data Tracing #1 I reviewed this ECG and interpreted as documented below: Sinus bradycardia, 57 beats minute, no ST elevation or depression, normal intervals, no ectopy ECG initial impression date: 04/28/21 ECG initial impression time: 09:00 - SUKHWINDER Score for Non-Stemi Age of Patient: 60-69 years old Heart Rate: 50-69 bpm Systolic Blood Pressure: 100-119 mmHg Serum Creatinine: 0.40-0.79 mg/dl CHF Killip Class: IV-Cardiogenic Shock Other Risk Factors: None Non-Stemi Risk Score: 167 Medical Decision Narrative: 65yo M with significant coronary disease presents emergency department secondary to general malaise. Patient denies any chest pain or shortness of breath. Patient is in no acute distress on initial evaluation. Patient's blood sugar is greater than 90 on initial evaluation. His physical e
[2021-04-28 13:31] LABS: POC Glucose,Bedside 127 (70-110)
[2021-04-28 13:40] VITALS: BP 132/87; PULSE 74; RESP 16; TEMP 36.8; O2SAT 98
== END 2021-04-28 13:41 | disposition home or self-care (01) ==
PROVIDERS: Emergency Provider Family Medicine; PCP Family Medicine
DX: R53.83 Other fatigue (principal); I50.22 Chronic systolic (congestive) heart failure; E11.65 Type 2 diabetes mellitus with hyperglycemia; Z79.899 Other long term (current) drug therapy; Z79.4 Long term (current) use of insulin; I25.10 Atherosclerotic heart disease of native coronary artery without angina pectoris; E78.5 Hyperlipidemia, unspecified; I10 Essential (primary) hypertension; I25.2 Old myocardial infarction; Z87.891 Personal history of nicotine dependence
CPT/HCPCS: 71045; 80053; 82962; 83880; 84484; 85025; 93005; 99283; C9803; U0003; U0005

== ENCOUNTER → 2021-08-10 07:25 | Outpatient (CLI) | payer MEDICARE, OTHER, SELFPAY ==
[2021-08-10 07:57] LABS: Basophils # 0.1 K/mm3 (0-0.2); Basophils % 1.5 % (0.1-2.0); Eosinophils # 0.4 K/mm3 (0.0-0.4); Eosinophils % 5.5 % (0.1-12.0); Hemoglobin 16.4 g/dL (14.1-18.0); Lymphocytes # 1.6 K/mm3 (0.7-4.5); Lymphocytes % 22.2 % (10-50); Mean Corpuscular HGB Conc 32.8 g/dL (31.8-35.4); Mean Corpuscular Hemoglobin 31.4 pg (27.0-31.2); Mean Corpuscular Volume 95.7 fl (80-94); Mean Platelet Volume 9.8 fl (7.4-10.4); Monocytes # 0.5 K/mm3 (0.1-1.0); Monocytes % 7.1 % (1.7-9.3); Neutrophils # 4.6 K/mm3 (1.8-7.8); Neutrophils % 63.7 % (37.0-80.0); Platelet Count 206 K/mm3 (142-424); Red Blood Count 5.23 M/mm3 (4.60-6.20); Red Cell Distribution Width 13.5 % (11.5-17.5); White Blood Count 7.3 K/mm3 (4.8-10.8)
[2021-08-10 08:21] LABS: Hemoglobin A1C 8.6 % (4.0-6.0)
[2021-08-10 08:44] LABS: Alanine Aminotransferase 22 U/L (12-78); Albumin Level 3.7 g/dl (3.5-5.0); Albumin/Globulin Ratio 1.7 (1.1-1.8); Alkaline Phosphatase 78 U/L (38-126); Anion Gap 8.2 mEq/L (5-15); Aspartate Amino Transferase 22 U/L (17-59); Bilirubin,Total 0.7 mg/dl (0.2-1.3); Blood Urea Nitrogen 20 mg/dl (9-20); Calcium 8.7 mg/dl (8.4-10.2); Carbon Dioxide 28 mmol/L (22.0-30.0); Chloride 104 mmol/L (98-107); Chol/HDL Ratio 2.5 (1-3.5); Cholesterol 89 mg/dl (140-200); Estimated Glomerular Filt Rate 112 ml/min (>60); GFR (African American) 136 ML/MIN (>60); Globulin 2.2 g/dL (1.3-3.2); Glucose 148 mg/dl (74-100); HDL Cholesterol 36 mg/dl (40-60); Potassium 4.2 mmoL/L (3.5-5.1); Sodium 136 mmol/L (136-145); Total Protein,Serum 5.9 g/dl (6.3-8.2); Triglycerides 64 mg/dl (30-150); VLDL Cholesterol 13 mg/dL (0-40)
[2021-08-10 08:55] LABS: Direct LDL Cholesterol 45.57 mg/dL (100-129)
[2021-08-10 09:01] LABS: 25-OH Vitamin D, Total 18.5 ng/mL (30-100)
[2021-08-10 09:15] LABS: Prostate Specific Ag Screen 1.1 ng/ml (0.0-4.0); Thyroid Stimulating Hormone 2.22 uIU/mL (0.465-4.68)
[2021-08-10 11:23] LABS: Creatinine,Urine Random 133 mg/dL (Not Estab.)
== END ==
PROVIDERS: Visit Provider Family Medicine
DX: E78.5 Hyperlipidemia, unspecified (principal); E11.9 Type 2 diabetes mellitus without complications; E55.9 Vitamin D deficiency, unspecified; Z12.5 Encounter for screening for malignant neoplasm of prostate
CPT/HCPCS: 36415; 80053; 80061; 82043; 82306; 82570; 83036; 84443; 85025; G0103

== ENCOUNTER → 2021-10-19 09:50 | Outpatient (CLI) | payer MEDICARE, OTHER, SELFPAY | PROVIDERS: PCP Family Medicine; Visit Provider Physician Assistant | DX: E78.5 Hyperlipidemia, unspecified (principal); I25.10 Atherosclerotic heart disease of native coronary artery without angina pectoris; I25.5 Ischemic cardiomyopathy; I50.22 Chronic systolic (congestive) heart failure; R06.00 Dyspnea, unspecified; R20.0 Anesthesia of skin; R20.2 Paresthesia of skin; I11.0 Hypertensive heart disease with heart failure | CPT/HCPCS: 93306 ==

== ENCOUNTER → 2021-11-15 09:02 | Outpatient (CLI) | payer MEDICARE, OTHER, SELFPAY ==
--- NOTE | 2021-11-15 09:06 | US_ITS ---
FINAL REPORT CLINICAL HISTORY: f/u bilateral thyroid nodules FINDINGS: THYROID ULTRASOUND The right lobe of the thyroid measures 4.4 x 1.8 x 1.6 cm. The left lobe of the thyroid measures 4.1 x 1.5 x 1.3 cm. There is a solid hyperechoic nodule in the right lobe of the thyroid measuring 1.6 x 1.5 x 1.4 cm. This is stable and consistent with a TI-RADS 4. There is a 6 mm macro calcification in the left lobe of the thyroid consistent with a TI-RADS 1. IMPRESSION: Stable 1.6 cm TI-RADS 4 nodule in the right lobe of the thyroid. This can be further evaluated with additional follow-up ultrasound in 6 months or ultrasound-guided FNA. Reviewed, Interpreted and Dictated by Romeo Juarez III, MD Transcribed by David Rodriguez Authenticated by Romeo Juarez III, MD on 11/15/2021 11:45:57 AM [facility]
== END ==
PROVIDERS: PCP Family Medicine; Visit Provider Student in an Organized Health Care Education/Training Program
DX: E04.9 Nontoxic goiter, unspecified (principal)
CPT/HCPCS: 76536

== ENCOUNTER → 2022-10-25 10:36 | Outpatient (CLI) | payer MEDICARE, OTHER, SELFPAY ==
--- NOTE | 2022-10-25 10:39 | US_ITS ---
FINAL REPORT CLINICAL HISTORY: hx nodule- 12 month u/s follow up COMPARISON: 11/15/2021 FINDINGS: THYROID ULTRASOUND Sonographic images of the thyroid was obtained. The right lobe of the thyroid measures 4.2 x 2.0 cm. There is a 1.7 x 1.5 cm dominant right thyroid lobe nodule which is isoechoic and solid with macrocalcifications, TI-RADS 4. Not significantly changed. The left lobe of the thyroid measures 3.9 x 1.4 x 1.2 cm. There is a calcification in the left thyroid lobe, stable. The isthmus measures 5 mm. IMPRESSION: TI-RADS category 4 right thyroid lobe nodule, stable. Reviewed, Interpreted and Dictated by Romeo Juarez III, MD Transcribed by Reyna Beyer Authenticated and [facility]
== END ==
PROVIDERS: PCP Family Medicine; Visit Provider Student in an Organized Health Care Education/Training Program
DX: E04.1 Nontoxic single thyroid nodule
CPT/HCPCS: 76536

== ENCOUNTER 2023-07-18 10:15 | Outpatient (CLI) | payer MEDICARE, OTHER, SELFPAY ==
[2023-07-18 10:37] VITALS: BP 159/91; PULSE 76; RESP 18; O2SAT 99
[2023-07-18 10:54] VITALS: RESP 18
[2023-07-18 11:49] VITALS: BP 177/82; PULSE 67; RESP 18
[2023-07-18 12:53] VITALS: BP 177/82; PULSE 67; RESP 18; O2SAT 96
== END 2023-07-18 12:53 | disposition home or self-care (01) ==
LOC: INF 10:16
PROVIDERS: PCP Family Medicine; Visit Provider Nurse Practitioner Family
DX: R11.2 Nausea with vomiting, unspecified (principal); E86.0 Dehydration
CPT/HCPCS: 96360; 96361; 96375

== ENCOUNTER → 2023-07-20 08:16 | Outpatient (CLI) | payer MEDICARE, OTHER, SELFPAY ==
--- NOTE | 2023-07-20 08:24 | US_ITS ---
FINAL REPORT CLINICAL HISTORY: VOMITING COMPARISON: None FINDINGS: Sonographic images of the right upper quadrant were obtained. The pancreas is partially obscured.The liver has an unremarkable appearance. There are multiple echogenic foci in the gallbladder without well-defined shadowing favored to represent small stones over tumefactive sludge. There is no evidence of biliary ductal dilatation.The common duct measures 4mm. Limited images of the right kidney demonstrate a 1.4 cm cyst. IMPRESSION: 1.4 cm right renal cyst. Multiple echogenic foci in the gallbladder favored represent small stones over tumefactive sludge. Reviewed, Interpreted and Dictated by Romeo Juarez III, MD Transcribed by Amanda Ricci Authenticated and [facility]
== END ==
PROVIDERS: PCP Family Medicine; Visit Provider Nurse Practitioner Family
DX: R11.10 Vomiting, unspecified (principal)
CPT/HCPCS: 76705

== ENCOUNTER 2023-10-03 09:58 | Outpatient (CLI) | payer MEDICARE, OTHER, SELFPAY ==
--- NOTE | 2023-10-03 09:58 | US_ITS ---
FINAL REPORT TECHNIQUE: Real-time grayscale and color ultrasound of the thyroid was performed. CLINICAL HISTORY: thyroid nodule COMPARISON: 10/25/2022 FINDINGS: The thyroid gland measures 4.1 x 1.4 x 2.0 cm on the right and 4.1 x 1.2 x 1.9 cm on the left. The isthmus measures 0.5. Nodules: There is a solid, taller than wide, 1.7 cm nodule in the right lobe of the thyroid which contains microcalcifications, TR 5. IMPRESSION: Right TR 5 nodule. Recommend needle sampling. Reviewed, Interpreted and Dictated by José Antonio Pedroza MD Transcribed by Amanda Ricci Authenticated and [facility]
== END 2023-10-03 23:59 ==
LOC: RAD 09:58
PROVIDERS: PCP Family Medicine; Visit Provider Student in an Organized Health Care Education/Training Program
DX: E04.1 Nontoxic single thyroid nodule (principal)
CPT/HCPCS: 76536

== ENCOUNTER 2023-10-10 06:55 | Outpatient (CLI) | payer MEDICARE, OTHER, SELFPAY ==
[2023-10-10 07:46] LABS: Basophils # 0.1 K/mm3 (0-0.2); Basophils % 0.7 % (0.1-2.0); Eosinophils # 0.4 K/mm3 (0.0-0.4); Eosinophils % 5.2 % (0.1-12.0); Hematocrit 50.1 % (42.0-52.0); Lymphocytes % 26.3 % (10-50); Mean Corpuscular HGB Conc 31.9 g/dL (31.8-35.4); Mean Corpuscular Hemoglobin 31.5 pg (27.0-31.2); Mean Corpuscular Volume 98.5 fl (80-94); Mean Platelet Volume 9.6 fl (7.4-10.4); Monocytes # 0.6 K/mm3 (0.1-1.0); Neutrophils # 4.6 K/mm3 (1.8-7.8); Neutrophils % 59.8 % (37.0-80.0); Platelet Count 188 K/mm3 (142-424); Red Blood Count 5.09 M/mm3 (4.60-6.20); Red Cell Distribution Width 14.1 % (11.5-17.5); White Blood Count 7.7 K/mm3 (4.8-10.8)
[2023-10-10 08:16] LABS: Free T4 (Free Thyroxine) 1.08 ng/dl (0.78-2.19)
[2023-10-10 08:31] LABS: Thyroid Stimulating Hormone 3.12 uIU/mL (0.465-4.68)
== END 2023-10-10 23:59 ==
PROVIDERS: PCP Nurse Practitioner; Visit Provider Nurse Practitioner
DX: E03.9 Hypothyroidism, unspecified (principal); E04.1 Nontoxic single thyroid nodule
CPT/HCPCS: 36415; 84439; 84443; 85025

== ENCOUNTER 2023-10-13 07:49 | Outpatient (CLI) | payer MEDICARE, OTHER, SELFPAY ==
--- NOTE | 2023-10-13 07:51 | US_ITS ---
FINAL REPORT CLINICAL HISTORY: .ZIGGY CORBIN -- RT SIDE THYROID NODULE X4 FINDINGS: Ultrasound guided thyroid biopsy. HISTORY: Thyroid nodule. PROCEDURE: After informed consent was obtained and a time-out was performed, the patient was prepped and draped in usual sterile fashion over the anterior neck. Utilizing local anesthesia and sterile technique with a 25-gauge needle, access to the lesion was obtained. Four passes were made. The patient received no conscious sedation. The patient tolerated the procedure well and left the department in good condition. IMPRESSION: Status post ultrasound guided biopsy of a thyroid nodule without immediate complication. Films reviewed , interpreted and dictated by Dr. Stephanie Santos. Transcribed by Ziggy Dey PA-C. Reviewed, Interpreted and Dictated by Stephanie Santos MD Transcribed by EMERALD Crowley Authenticated and [facility]
== END 2023-10-13 23:59 ==
LOC: RAD 07:51
PROVIDERS: PCP Family Medicine; Visit Provider Nurse Practitioner
DX: E04.1 Nontoxic single thyroid nodule (principal); E03.9 Hypothyroidism, unspecified
CPT/HCPCS: 10005; 76536; 88173; 88305

== ENCOUNTER 2024-05-23 06:36 | Outpatient (CLI) | payer MEDICARE, OTHER, SELFPAY ==
--- NOTE | 2024-05-23 | CA_ITS ---
APPROVED REPORT Exam: Pharmacologic Technologist: Sandie Sorensen, Ht: 5 ft 7 in Wt: 219 lbs BSA: 2.10 m2 HR: 55 bpm BP: 113/69 mmHg Rhythm: Sinus jacob, low voltage QRS, inferior and lateral T wave abns Medical History Medical History: Diabetes, Smoking Medications: Amlodipine,,,,, Aspirin,,,,, Gabapentin,,,,, Atorvastatin,,,,, Carvedilol,,,,, Vit D3,,,,, CloPIdogrel,,,,, Ezetimibe,,,,, Isosorbide Mononitrate ER,,,,, EMpagliflozin-Metformin,,,,, Furosemide,,,,, INSULIN GLARGINE,,,,, Allergies: No known drug allergies Cardiac Risk Factors: Diabetes , Smoking Stress Test Details Test: LEXISCAN HR Resting HR: 56 bpm Max Heart Rate (APMHR): 150 bpm Max HR Achieved: 70 bpm Target HR (85% APMHR): 128 bpm % of APMHR: 47 Recovery HR: 53 bpm BP Resting BP: 113/69 mmHg Max BP: 113/69 mmHg Recovery BP: 105.0/65.0 mmHg ECG Resting ECG: Sinus jacob, low voltage QRS, inferior and lateral T wave abns Stress ECG: No significant ST changes Arrhythmia: Junctional bradycardia (HR 30s) Clinical Exercise duration: 04:01 min Highest Stage Achieved: Exercise capacity: 1.0 METs Stress ECG Conclusion Pt had mild soa, head discomfort and light headed No cp Marked slowing of HR into the low 30s with junctional bradycardia Conclusion: No significant ST changes. Transient junctional bradycardia (HR 30s) after Lexiscan administration Myoview images reported separately Test Summary REST 03:26 . . 56 . 113/ 69 . . Stage 1 01:00 . . 64 . . . . Stage 2 01:00 . . 61 . 108/ 60 . . Stage 3 01:00 . . 48 . 95/ 55 . . Stage 4 01:00 . . 41 . 94/ 53 . . Stage 4 01:01 . . 41 . 94/ 53 . Stop exercise at 04:01 RECOVERY 01:00 . . 33 . . . . RECOVERY 02:00 . . 48 . 73/ 42 . . RECOVERY 03:00 . . 43 . 73/ 42 . . RECOVERY 04:00 . . 52 . 98/ 58 . . RECOVERY 05:00 . . 53 . 103/ 62 . . RECOVERY 06:00 . . 53 . 103/ 62 . . RECOVERY 07:00 . . 53 . 105/ 65 . . RECOVERY 08:00 . . 58 . 108/ 64 . . RECOVERY 09:00 . . 58 . 105/ 59 . . RECOVERY 10:00 . . 58 . 105/ 59 . . RECOVERY 11:00 . . 58 . 96/ 57 . . RECOVERY 12:00 . . 55 . 97/ 55 . . RECOVERY 12:03 . . 55 . 97/ 55 . . Electronically signed by : Salma Garcia MD 05/27/2024 22:37:32
--- NOTE | 2024-05-23 07:12 | CA_ITS ---
APPROVED REPORT EXAM: Comprehensive 2D, Doppler, and color-flow Echocardiogram [place]cock Feather Trimmer: Giselle Mendoza RVT Ht: 5 ft 7 in Wt: 219lbs BSA: 2.10 BP: 112/60 mmHg Indications: ANGINA,CAD,CHF,CM,DM,HTN,HLD,SIMMONS 2D Dimensions LA Volume 57.20 mL LA Volume Index 27.24 mL/m2 (M/F) 16-34 M-Mode Dimensions RVDd 3.74 cm (0.9-2.6) LA Diam 4.66 cm (1.9-4.0) LVDd 5.76 cm (3.5-5.7) LVDs 4.26 cm (3.5-5.7) IVSd 1.31 cm (0.6-1.1) PWd 0.94 cm (0.6-1.1) EF (Teich) 50.40% FS 26.00% EDV (Teich) 163.90 mL TAPSE 1.46 (<1.7) ESV (Teich) 81.30 mL LV Diastology E Decel Time 233 (160-240 msec) E/A Ratio 0.8 Aortic Valve CHIQUI Index 1.03 cm2/m2 AoV Peak Shola. 99.0 (50-130 cm/s) AI PHT 1200.00 ms AO Peak GR. 4.00 mmHg AO Mean GR. 2.70 (<5 mmHg) AO VTI 21.8 (18-25 cm) CHIQUI (VTI) 2.22 (2.5-4.5 cm2) Mitral Valve MV E Max Shola. 66.0 (40-130 cm/s) MV A Velocity 85.0 (40-130 cm/s) E/A Ratio 0.78 MV PHT 68.0 ms Pulmonary Valve PV Peak Velocity 60.0 (50-150 cm/s) Tricuspid Valve TR P. Velocity 208.00 cm/s RAP Estimate 10.00 mmHg RVSP 27.30 mmHg Left Ventricle The left ventricle is normal size. The left ventricular systolic function is mildly reduced. There is increased LV wall thickness. There is mild global hypokinesis present. Grade 1 diastolic dysfunction is present. LVEF is 45%. Right Ventricle Right ventricle is mildly dilated. Right ventricle is mildly hypokinetic. Atria Left atrium is moderately dilated. The right atrium size is normal. There is no Doppler evidence of interatrial shunt. Aortic Valve The aortic valve is mildly thickened. There is no aortic valvular stenosis. Mild aortic regurgitation. Mitral Valve The mitral valve leaflets are mildly thickened. Mild mitral regurgitation. No evidence of mitral valve stenosis. Tricuspid Valve The tricuspid valve leaflets are thin and pliable. Mild tricuspid regurgitation. RVSP is 20-25 mmHg. Pulmonic Valve The pulmonary valve is normal in structure. Trace pulmonic regurgitation. Great Vessels The aortic root is normal in size. The ascending aorta is not well-visualized. IVC is normal in size and collapses >50% with inspiration. Pericardium There is no pericardial effusion. Other Information Study Quality: Fair Conclusion Mildly reduced LV systolic function (LVEF 45%). Grade 1 diastolic dysfunction. Mild RV dilation with mild reduction in RV function. LA dilation. Mild AI, mild MR, mild TR. Electronically signed by : Salma Garcia MD 05/27/2024 23:32:20
--- NOTE | 2024-05-23 07:32 | NM_ITS ---
APPROVED REPORT Exam: Nuclear Stress Test Indication: Angina..soa Patient Location: Outpatient Stress Tech: Sandie Sorensen AL Tech:Kari Waddell ML RT(R)(N) Ht: 5 ft 7 in Wt: 218 lbs HR: 56 bpm BP: 113/69 mmHg BSA: 2.10 m2 TID: 1.12 BMI: 34.1 History: Angina..soa Procedure: Patient received 0.4 mg of intravenous Lexiscan, resting heart rate 56 bpm, resting blood pressure 113/69 mmHg, with Lexiscan maximum heart rate achieved was 70 bpm which is 85 % of the maximum predicted heart rate and blood pressure was 113/69 mmHg. With Lexiscan, patient denied any complaint of chest pain. Cardiac Stress and Resting SPECT Images: Cardiac Stress and Resting SPECT images were obtained using technetium 99m Myoview 32.9 mCi stress and 10.39 mCi at rest. Resting and stress imaging in supine and prone positions demonstrate a large sized, severe, predominantly fixed perfusion defect in the inferior LV wall. There is also a large sized, moderate, reversible perfusion defect in the anterior and anteroseptal LV farias. Gated imaging demonstrates moderate reduction global LV systolic function. There is severe hypokinesis of the inferior and anterior LV farias. LVEF is calculated at 34%. Conclusion: Large sized, severe, predominantly fixed perfusion defect in the inferior LV wall. There is also a large sized, moderate, reversible perfusion defect in the anterior and anteroseptal LV farias. Findings are suggestive of reversible ischemia. Gated imaging demonstrates moderate reduction global LV systolic function. There is severe hypokinesis of the inferior and anterior LV farias. LVEF is calculated at 34%. Electronically signed by : Salma Garcia MD 05/27/2024 22:39:47
[2024-05-23] MEDS: ISOTOPE MYOVIEW (PER STUDY) 1 DOSE IV (11:18)
[2024-05-23] MEDS: REGADENOSON 0.4MG/5ML SYRINGE 0.4 MG IV (11:18)
[2024-05-23] MEDS: SODIUM CHLORIDE 0.9% 10ML SYR (RAD ONLY) 10 ML IV ×2 (11:19)
== END 2024-05-23 23:59 | disposition home or self-care (01) ==
LOC: RAD 06:37
PROVIDERS: PCP Family Medicine; Visit Provider Physician Assistant
DX: R06.00 Dyspnea, unspecified (principal); I25.118 Atherosclerotic heart disease of native coronary artery with other forms of angina pectoris
CPT/HCPCS: 78452; 93017; 93018; 93306; A9502; J2785

== ENCOUNTER 2024-06-17 08:06 | Day surgery (SDC) | payer MEDICARE, OTHER, SELFPAY ==
[2024-06-17] VITALS (11 sets, daily range): BP systolic 135–189; BP diastolic 75–96; PULSE 56–64; RESP 20; O2SAT 91–96; BMI 33.8
--- NOTE | 2024-06-17 07:02 | IR_ITS ---
APPROVED REPORT Patient Location: Outpatient PROCEDURES Selective coronary angiogram INDICATION Abnormal Myoview, Known coronary artery disease, Angina pectoris Informed consent was obtained prior to the procedure. COMPLICATIONS NONE Estimated Blood Loss: LESS THAN 10 ML TECHNIQUE One percent lidocaine used to anesthetize the right anterior aspect of the wrist. The right radial artery was accessed via the Seldinger technique. A 6 Georgian sheath was placed in the right radial artery. 2.5 mg of Verapamil, 800 mcg of nitroglycerin, 1mg Lidocaine and 5000 U Heparin were given through the arterial sheath. A 6 Georgian JL 3 guide catheter was used to perform selective coronary angiogram. At the end of the procedure the sheath was removed good hemostasis was achieved using Traclet band, patient was transferred to the postop holding area in stable condition. ANGIOGRAPHIC RESULTS The left main artery Is normal The left anterior descending artery Has proximal 40% stenoses with an additional mid vessel 40% stenoses. Medium sized first diagonal artery has an ostial 60% and an additional proximal 60 to 70% stenosis. The circumflex artery Is a dominant and has a proximal concentric 80% stenosis. The first obtuse marginal artery is occluded and fills via left to left collaterals. A large second obtuse marginal arteries distal to the 80% stenosis and is widely patent and large caliber vessel The right coronary artery Is nondominant has proximal 50% stenosis with mid vessel and distal 60% stenoses. Distal vessel was occluded and fills via scant [id number] collaterals The LANDIS ventriculogram reveals Dilated ventricle ejection fraction 40% The left ventricular end-diastolic pressure 15 mmHg IMPRESSION Coronary artery disease as described above PLAN 1. Although patient does not have severe LAD disease there is significant dominant circumflex artery disease which is not highly amenable to percutaneous revascularization. I would like surgical consultation to see if the surgeon believes patient would benefit from surgical revascularization 2. Risk factor modification 3. LDL less than 55 to achieve that high intensity statin Electronically signed by : David Jameson MD 06/17/2024 15:12:20
[2024-06-17 08:39] LABS: Basophils # 0.1 K/mm3 (0-0.2); Basophils % 1.1 % (0.1-2.0); Eosinophils # 0.5 K/mm3 (0.0-0.4); Eosinophils % 6.1 % (0.1-12.0); Hematocrit 48.9 % (42.0-52.0); Hemoglobin 16.6 g/dL (14.1-18.0); Lymphocytes # 1.6 K/mm3 (0.7-4.5); Lymphocytes % 20.5 % (10-50); Mean Corpuscular HGB Conc 33.8 g/dL (31.8-35.4); Mean Corpuscular Hemoglobin 31.2 pg (27.0-31.2); Mean Corpuscular Volume 92.3 fl (80-94); Mean Platelet Volume 9.2 fl (7.4-10.4); Monocytes # 0.5 K/mm3 (0.1-1.0); Monocytes % 6.7 % (1.7-9.3); Neutrophils % 65.6 % (37.0-80.0); Platelet Count 196 K/mm3 (142-424); Red Cell Distribution Width 14.2 % (11.5-17.5); White Blood Count 7.6 K/mm3 (4.8-10.8)
[2024-06-17 08:43] LABS: Chloride 107 mmol/L (98-107); Potassium 4.3 mmoL/L (3.5-5.1); Sodium 139 mmol/L (136-145)
[2024-06-17 08:46] LABS: Anion Gap 10.3 mEq/L (5-15); Blood Urea Nitrogen 15 mg/dl (9-20); Calcium 8.5 mg/dl (8.4-10.2); Carbon Dioxide 26 mmol/L (22.0-30.0); Creatinine Clearance Estimated 95 mL/min (50-200); Estimated Glomerular Filt Rate 111 ml/min (>60); GFR (African American) 135 ML/MIN (>60); Glucose 158 mg/dl (74-100)
[2024-06-17] MEDS: diphenhydrAMINE 50MG/ML VIAL 50 MG IV (09:56)
[2024-06-17] MEDS: HEPARIN 1,000 UNITS/500ML NS (CATH LAB) 3000 UNIT IV (09:57)
[2024-06-17] MEDS: HEPARIN 1,000 UNITS/ML 10ML VIAL (CATH LAB) 10000 UNIT IV (09:57)
[2024-06-17] MEDS: 0.9 % SODIUM CHLORIDE 500 ML 25 ML IV (09:57)
[2024-06-17] MEDS: VERAPAMIL 2.5MG/ML 2ML VIAL 2.5 MG IV (09:58)
[2024-06-17] MEDS: MIDAZOLAM HCL 1MG/ML 5ML VIAL 1 MG IV (09:58)
[2024-06-17] MEDS: LIDOCAINE 1% 10ML MDV 20 ML IJ (09:58)
[2024-06-17] MEDS: FENTANYL 100MCG/2ML VIAL 50 MCG IV (09:59)
[2024-06-17] MEDS: IOPAMIDOL-370 (76%);100ML BOTTLE 50 ML IV (10:37)
== END 2024-06-17 13:16 | disposition home or self-care (01) ==
PROVIDERS: PCP Family Medicine; Visit Provider Internal Medicine
DX: R94.39 Abnormal result of other cardiovascular function study (principal); I25.110 Atherosclerotic heart disease of native coronary artery with unstable angina pectoris; I50.22 Chronic systolic (congestive) heart failure; G47.33 Obstructive sleep apnea (adult) (pediatric); I11.0 Hypertensive heart disease with heart failure; I25.5 Ischemic cardiomyopathy; E78.2 Mixed hyperlipidemia
CPT/HCPCS: 80048; 85025; 93458; 99152; C1725; C1769; J1200; J1644; J2250; J3010; Q9967

== ENCOUNTER 2024-10-08 09:46 | Outpatient (CLI) | payer MEDICARE, OTHER, SELFPAY ==
[2024-10-08 09:52] LABS: Coronavirus 19, PCR Not Detected (NotDetected); Influenza A, PCR Not Detected (NotDetected); Influenza B, PCR Not Detected (NotDetected)
[2024-10-08 10:08] LABS: Basophils # 0.1 K/mm3 (0-0.2); Basophils % 0.8 % (0.1-2.0); Eosinophils # 0.4 K/mm3 (0.0-0.4); Eosinophils % 5.2 % (0.1-12.0); Hematocrit 45.4 % (42.0-52.0); Hemoglobin 14.7 g/dL (14.1-18.0); Lymphocytes # 1.2 K/mm3 (0.7-4.5); Lymphocytes % 16.4 % (10-50); Mean Corpuscular HGB Conc 32.4 g/dL (31.8-35.4); Mean Corpuscular Hemoglobin 28.9 pg (27.0-31.2); Mean Corpuscular Volume 89.2 fl (80-94); Mean Platelet Volume 10.7 fl (7.4-10.4); Monocytes # 0.7 K/mm3 (0.1-1.0); Monocytes % 9.8 % (1.7-9.3); Neutrophils # 4.8 K/mm3 (1.8-7.8); Neutrophils % 67.7 % (37.0-80.0); Platelet Count 203 K/mm3 (142-424); Red Blood Count 5.09 M/mm3 (4.60-6.20); Red Cell Distribution Width 15.7 % (11.5-17.5); White Blood Count 7.1 K/mm3 (4.8-10.8)
[2024-10-08 10:21] LABS: Anion Gap 9.9 mEq/L (5-15); Blood Urea Nitrogen 9 mg/dl (9-20); Calcium 8.6 mg/dl (8.4-10.2); Carbon Dioxide 24 mmol/L (22.0-30.0); Chloride 108 mmol/L (98-107); Estimated Glomerular Filt Rate 133 ml/min (>60); GFR (African American) 161 ML/MIN (>60); Glucose 145 mg/dl (74-100); Potassium 3.9 mmoL/L (3.5-5.1); Sodium 138 mmol/L (136-145)
[2024-10-08 10:33] LABS: NT Pro Brain Natriuretic Pep. 9750 pg/mL (0-125); Troponin I 0.02 ng/ml (0.00-0.034)
--- NOTE | 2024-10-08 11:17 | CA_ITS ---
APPROVED REPORT EXAM: Limited 2D Echocardiogram Hook Loader: Rose Puentes CRT Ht: 5 ft 7 in Wt: 219lbs BSA: 2.10 BP: 118/117 mmHg Indications: SOB, HF, CABG M-Mode Dimensions RVDd 4.54 cm (0.9-2.6) LVDd 4.63 cm (3.5-5.7) LVDs 4.08 cm (3.5-5.7) IVSd 1.57 cm (0.6-1.1) PWd 0.96 cm (0.6-1.1) EF (Teich) 25.70% FS 11.90% EDV (Teich) 98.80 mL ESV (Teich) 73.40 mL Other Information Study Quality: Fair Conclusion This is a limited TTE to evaluate for LV systolic function. Limited windows were obtained. The left ventricle is normal in size. There is increased LV wall thickness. Proximal septal thickening is noted. There is moderate global hypokinesis present. LVEF is 30-35%. The right ventricle is mildly dilated with mild reduction in RV function. Electronically signed by : Salma Garcia MD 10/08/2024 12:28:08
== END 2024-10-08 23:59 | disposition home or self-care (01) ==
PROVIDERS: PCP Family Medicine; Visit Provider Physician Assistant
DX: R50.9 Fever, unspecified (principal); R06.02 Shortness of breath; K21.9 Gastro-esophageal reflux disease without esophagitis; R06.00 Dyspnea, unspecified; I31.39 Other pericardial effusion (noninflammatory); I50.23 Acute on chronic systolic (congestive) heart failure
CPT/HCPCS: 36415; 80048; 83880; 84484; 85025; 87636; 93308

== ENCOUNTER 2024-10-24 07:50 | Outpatient (CLI) | payer MEDICARE, OTHER, SELFPAY ==
--- NOTE | 2024-10-24 07:51 | US_ITS ---
FINAL REPORT TECHNIQUE: Real-time grayscale and color ultrasound of the thyroid was performed. CLINICAL HISTORY: 6 month repeat TI-RADS 5 on previous COMPARISON: 10/03/2023 FINDINGS: The thyroid gland measures 39 x 18 x 19 mm on the right and 35 x 13 x 8 mm on the left. The isthmus measures 6 mm. The parenchyma is unremarkable . Nodules: Redemonstration of a nodule in the mid right lobe, taller than wide measuring up to 18 x 14 cm and similar to the prior study. Nodule is heterogeneous with decreased echogenicity, TR 5. Other smaller subcentimeter nodules are noted bilaterally, some of which demonstrate macrocalcifications. IMPRESSION: Stable TR 5 lesion mid right thyroid lobe. Please see pathology from prior biopsy. Reviewed, Interpreted and Dictated by José Antonio Pedroza MD Transcribed by Amanda Ricci Authenticated and [facility]
== END 2024-10-24 23:59 | disposition home or self-care (01) ==
LOC: RAD 07:51
PROVIDERS: PCP Family Medicine; Visit Provider Nurse Practitioner
DX: E04.1 Nontoxic single thyroid nodule (principal)
CPT/HCPCS: 76536

== ENCOUNTER 2024-11-05 08:22 | Outpatient (RCR) | payer MEDICARE, OTHER, SELFPAY | END 2024-12-09 10:00 | disposition home or self-care (01) | LOC: CR 08:22 | PROVIDERS: Visit Provider Thoracic Surgery (Cardiothoracic Vascular Surgery) | DX: I31.39 Other pericardial effusion (noninflammatory) (principal); I25.10 Atherosclerotic heart disease of native coronary artery without angina pectoris; I11.0 Hypertensive heart disease with heart failure; I25.5 Ischemic cardiomyopathy; I50.23 Acute on chronic systolic (congestive) heart failure; Z98.61 Coronary angioplasty status | CPT/HCPCS: 93798 ==

== ENCOUNTER 2025-06-10 13:54 | Inpatient (IN) | payer MEDICARE, OTHER, SELFPAY ==
--- OUTSIDE RECORDS SUMMARY | 2024-01-01 05:00 | XMS_ITS ---
Author Organization [facility] Address [address] [place] [id number] Care Team Providers Care Resource Engineer Name Role Phone Freddy Busbyian Primary Care Provider [phone] Allergies No Known Allergies Results Component Value Reference Range Notes Glucose (In-House) Reviewed date:01/01/2024 09:56:37 AM Interpretation: Performing Lab: Notes/Report: blood glucose 178 74 - 106 mg/dL Glycohemoglobin A1c (in hous e) Reviewed date:01/01/2024 09:56:29 AM Interpretation: Performing Lab: Notes/Report: glycohemoglobin 7.8% 5 - 6.5 % REASON FOR VISIT CHECKUP Medications Medication SIG (Take, Route, Frequency, Duration) Notes Start Date End Date Status Vitamin B-12 1000 MCG 1 tab(s) orally once a day 0 03/26/2019 Active ProAir Digihaler 108 (90 Base) MCG/ACT 1 or 2 puff(s) inhaled 4 times a day as needed; Duration: 25 Active Entresto 97-103 MG 1 tab(s) orally 2 ti mes a day Active Clopidogrel Bisulfate 75 MG 1 tab(s) orally once a day A ctive Synjardy XR 25-1000 MG 1 tablet with maykel akfast Orally Once a day 03/09/2023 Active FreeStyle Wilma 2 Sensor - as directed Active Aspirin 81 81 MG 1 tablet Orally Once a day; Duration: 30 day(s) Active GNP D 1000 25 MCG (1000 UT) TAKE ONE CAPSULE BY MOUTH EVERY DAY; Duration: 30 Active FreeStyle Wilma 2 [place] - as directed Active Atorvastatin Calcium 80 mg 1 tablet Oral ly Once a day; Duration: 30 days Active Gabapentin 300 MG 1 cap(s) orally 2 ti mes a day; Duration: 30 day(s) 06/14/2023 Active Furosemide 40 MG 1 tab(s) orally once a day as needed Active Carvedilol 25 MG 1 tab(s) orally 2 ti mes a day Active Levsin/SL 0.125 MG 1 tablet under the t ongue and allow to dissolve as needed Sublingual Three times a day prn 07/17/2023 Active Ondansetron 4 MG 1 tablet on the tong ue and allow to dissolve Orally q6h prn 07/17/2023 Active Toujeo SoloStar 300 UNIT/ML 55 units subcutaneous daily at HS Active Vital Signs Blood pressure systolic 140 mm Hg 01/01/20 24 Blood pressure diastolic 80 mm Hg 024 Heart Rate 61 /min 01/01/2024 Height 68.50 in 01/01/2024 Weight 218 lbs 01/01/2024 BMI 32.66 kg/m2 01/01/2024 Encounters Encounter Location Date Provider Diagnosis [facility] [address] [facility] [address] [place] [id number] 01/01/2024 Alejo Busby Type 2 diabetes kaushal itus without complication E11.9 Assessments Encounter Date Diagnosis (ICD Code) Assessment Notes Treatment Notes Treatment Clinical Notes Section Notes 01/01/2024 Type 2 diabetes mellitus without complication (ICD-10 - E11.9) Better control today Plan Of Treatment Medication Medication Name Sig Start Date Stop Date Notes Synjardy XR 25-1000 MG 1 tablet with maykel akfast Orally Once a day 03/09/2023 Toujeo SoloStar 300 UNIT/ML 55 units sub cutaneous daily at HS Treatment Notes Assessment Notes Type 2 diabetes mellitus without complic ation Better control today Next Appt Details Follow Up: 6 Months, Reason: Provider Name:Alejo Kate ry, 07/03/2025 09:00:00 AM, [address], [address], [place], [phone], Progress Notes * Krish AREVALODOB:1955 ( 69 yo M)Acc No.[id number]:01/01/2024 Progress Notes Patient: Krish CHOUDHURY Provider: Kareem Busby M.D. :1955 A ge:68 Y S ex:Male Date:01/01/2024 Address:[address], [id number] Subjective: * Chief Complaints: * 1 . CHECKUP. * HPI: C ardiology: 68 year old male presents with c/o Blood Pressure Elevated P t here to f/u on hypertension, states he is doing well and does not have any concerns. c/o Hyperlipidemia p t is not f asting today. E ndocrinology: c/o Recent Blood Sugars P t here to f/u on DM 2. * ROS: D ERMATOLOGY: no R [place]. n o H yolanda. G ASTROENTEROLOGY: no N ausea. n o V omiting. U ROLOGY: no D ifficulty urinating. n o B lood in urine. * Medical History: C oronary Artery Disease, ST elevation [place], 7 Stents, Dr. Jameson- 07/02/2017 , Congestive Heart Failure, EF 30% 06/2017, EF 40% 08/2017, Pericardial Effusion, 08/2017, Type 2 Diabetes, Hyperlipidemia, Hypertension, Neuropathy, NSTEMI, 04/21/2019. * Surgical History: R T Knee, [place] 1999, Stent x5 - Dr. Jameson 07/02/2017, Stent x2 - Dr. Jameson 07/09/2017, Fluid Removed from Heart - Dr. Holman - [facility] 08/25/2017, Cardiac Stent x 1, Balloon x3 03/2019. * Hospitalization/Major Diagno stic Procedure: K idney Stones- [facility] 1998, [place] & Stent placement- [facility] 07/02-, Cardiac Stent & Balloon- [facility] 03/2019, NSTEMI- [facility] 04/2019. * Family History: F ather: , High Blood Pressure. M other: . S iblings: Sister from Cancer. 2 brother(s) , 2 sister(s) . . * Social History: C URRENT TOBACCO USE S moking Status: Patient does NOT smoke. C affeine: no. Exercise: no. Marital Status: . Past smoking status: no, Smoking status: Does not smoke. Alcohol: No. * Medications: T aking FreeStyle Wilma 2 Sensor - Miscellaneous as directed , Taking FreeStyle Wilma 2 [place] - Device as directed , Taking Aspirin 81 81 MG Tablet Delayed Release 1 tablet Orally Once a day , Taking ProAir Digihaler 108 (90 Base) MCG/ACT Aerosol Powder Breath Activated 1 or 2 puff(s) inhaled 4 times a day as needed , Taking Vitamin B-12 1000 MCG Tablet 1 tab(s) orally once a day , Taking Clopidogrel Bisulfate 75 MG Tablet 1 tab(s) orally once a day , Taking Entresto 97-103 MG Tablet 1 tab(s) orally 2 times a day , Taking Furosemide 40 MG Tablet 1 tab(s) orally once a day as needed , Taking Gabapentin 300 MG Capsule 1 cap(s) orally 2 times a day , Taking Carvedilol 25 MG Tablet 1 tab(s) orally 2 times a day , Taking Ondansetron 4 MG Tablet Disintegrating 1 tablet on the tongue and allow to dissolve Orally q6h prn , Taking Levsin/SL 0.125 MG Tablet Sublingual 1 tablet under the tongue and allow to dissolve as needed Sublingual Three times a day prn , Taking Atorvastatin Calcium 80 mg Tablet 1 tablet Orally Once a day , Taking GNP D 1000 25 MCG (1000 UT) Capsule TAKE ONE CAPSULE BY MOUTH EVERY DAY , Taking Synjardy XR 25-1000 MG Tablet Extended Release 24 Hour 1 tablet with breakfast Orally Once a day , Taking Toujeo SoloStar 300 UNIT/ML Solution Pen-injector 55 units subcutaneous daily at HS , Medication List reviewed and reconciled with the patient * Allergies: N .K.D.A. Objective: * Vitals: W t:218, Temp:98.0, BP:140/80, HR:61, Nurse:kwasi, Ht: 68.50, BMI:32.66. * Examination: E ndocrinology: General Appearance: N AD. H eart: R SR. L ungs:?clear to auscultation. Assessment: * Assessment: 1. T ype 2 diabetes mellitus without complication - E11.9 (Primary) Plan: * Treatment: Value Reference Range b lood glucose 178 74 - 106 mg/dL * Fátima Boswell 01/01/2024 9:37:09 AM > , Provider reviewed results while patient in office. ?LAB: Glycohemoglobin A1c (in house) (Collection Date & Time - 01/01/2024)* Value Reference Range g lycohemoglobin 7.8% 5 - 6.5 % * Fátima Boswell 01/01/2024 9:37:35 AM > , Provider reviewed results while patient in office. Notes: Better control today?? * Procedure Codes: G 2211 Complex e/[place], [address] CAPILLARY BLOOD DRAW, 51327 GLUCOSE TEST, 41968 GLYCATED HEMOGLOBIN TEST, Modifiers: QW * Follow Up: 6 Months * Images: Billing Information: * Visit Code: 70608 Office Visit, Est Pt., Level 3. * Procedure Codes: G2211 Complex e/[place]. [address] CAPILLARY BLOOD DRAW. 82984 GLUCOSE TEST. 54718 GLYCATED HEMOGLOBIN TEST. Modifiers: QW * Electronic signature of Mitra Busby MD on 06/11/2025 at 10:07 AM EDT Sign off status: Pending * Provider: Kareem Busby M.D. Date: 0 01/01/2024 Generated for Nas coronado/Joe/eTransmitting on: 1 10:07 AM EDT History and Physical Notes * HPI (History of Present Illness) Category Sub-Category Detail Notes Category Not es Endocrinology Recent Blood Sugars Pt here to f/u on DM 2 Cardiology Blood Pressure Elevated Pt here to f/u on hypertension, states he is doing well and does not have any concerns Hyperlipidemia pt is not fasting to day Examination Category Sub-Category Detail Notes Category Not es Endocrinology Heart: RSR Lungs: clear to auscultatio n General Appearance: NAD
--- OUTSIDE RECORDS SUMMARY | 2024-01-01 05:00 | XMS_ITS ---
Author Organization [facility] Address [address] [place] [id number] Care Team Providers Care Wire Loop Machine Operator Name Role Phone Freddy Busbyian Primary Care Provider Allergies No Known Allergies Results Component Value [...] DAY; Duration: 30 Active FreeStyle Wilma 2 [place] - as directed Active Atorvastatin Calcium 80 [...] subcutaneous daily at HS Active Vital Signs Weight 218 lbs 01/01/2024 Blood pressure systolic 140 mm Hg 01/01/20 24 Blood pressure diastolic 80 mm Hg 024 Heart Rate 61 /min 01/01/2024 Height 68.50 in 01/01/2024 BMI 32.66 kg/m2 01/01/2024 Encounters Encounter Location Date Provider Diagnosis [facility] [address] [facility] [address] [place] [id number] 01/01/2024 Alejo Busby Type 2 diabetes kaushal [...] [address], [address], [place], [phone], Progress Notes * Krish AREVALODOB:1955 ( 69 yo M)Acc No.[id number]:01/01/2024 Progress Notes Patient: Krish CHOUDHURY Provider: Kareem Busby M.D. :1955 A ge:68 Y S ex:Male Date:01/01/2024 Address:[address], [id number] Subjective: * Chief Complaints: * 1 . [...] History: C oronary Artery Disease, ST elevation [place], 7 Stents, Dr. Jameson- 07/02/2017 , Congestive [...] Hospitalization/Major Diagno stic Procedure: K idney Stones- [facility] 1998, [place] & Stent placement- [facility] 07/02-, Cardiac Stent & Balloon- [facility] 03/2019, NSTEMI- [facility] 04/2019. * Family History: F ather: , [...] as directed , Taking FreeStyle Wilma 2 [place] - Device as directed , Taking Aspirin [...] G 2211 Complex e/[place], [address] CAPILLARY BLOOD DRAW, 54340 GLUCOSE TEST, 12207 GLYCATED HEMOGLOBIN TEST, Modifiers: QW * Follow Up: 6 Months * Images: Billing Information: * Visit Code: 72810 Office Visit, Est Pt., Level 3. * Procedure Codes: G2211 Complex e/[place]. [address] CAPILLARY BLOOD DRAW. 52367 GLUCOSE TEST. 81871 GLYCATED HEMOGLOBIN TEST. Modifiers: QW * Electronic signature of Mitra Busby MD on 06/10/2025 at 02:32 PM EDT Sign off status: Pending * Provider: Kareem Busby M.D. Date: 0 01/01/2024 Generated for Nas coronado/Joe/eTransmitting on: 1 02:32 PM EDT History and Physical Notes * HPI [...]
--- OUTSIDE RECORDS SUMMARY | 2024-07-02 05:00 | XMS_ITS ---
Author Organization [facility] Address [address] [place] [id number] Care Team Providers Care Writer Editor Name Role Phone Alejo Busby Primary Care Provider Allergies No Known Allergies Results Component Value Reference Range Notes Glucose (In-House) Reviewed date:07/02/2024 09:44:14 PM Interpretation:205 Performing Lab: Notes/Report: 205 blood glucose 205 74 - 106 mg/dL Glycohemoglobin A1c (in hous e) Reviewed date:07/03/2024 09:15:58 AM Interpretation:8.3 Performing Lab: Notes/Report: 8.3 glycohemoglobin 8.3% 5 - 6.5 % P-TSH reflex to FT4 Reviewed date:07/03/2024 09:15:58 AM Interpretation:Normal Performing Lab: Notes/Report: Test performed by [facility] [address] [place] [address] , [place] [address] Phoenix Montgomery MD, Ornamental Bronze Worker CLIA: [id number] TSH reflex to FT4 1.81 0.43-5.25 mU/L P-Microalbumin/Creatinine, R andom Urine Sample Reviewed date:07/03/2024 09:15:58 AM Interpretation:a/c 1180 Performing Lab: Notes/Report: Test performed by [facility] [address] [place], [place] [address] [place] , [place] [address] Phoenix Montgomery MD, Ornamental Bronze Worker CLIA: [id number] Albumin/Creatinine Ratio, Urine 1180 0-30 ug/m g Microalbumin, Urine, Random 28.2 Creatinine, Urine 23.9 REASON FOR VISIT 6 month check Medications Medication SIG (Take, Route, Frequency, Duration) Notes Start Date End Date Status Aspirin 81 81 MG 1 tablet Orally Once a day; Duration: 30 day(s) Active ProAir Digihaler 108 (90 Base) MCG/ACT 1 or 2 puff(s) inhaled 4 times a day as needed; Duration: 25 Active Vitamin B-12 1000 MCG 1 tab(s) orally once a day 0 03/26/2019 Active Clopidogrel Bisulfate 75 MG 1 tab(s) orally once a day A ctive Entresto 97-103 MG 1 tab(s) orally 2 ti mes a day Active Atorvastatin Calcium 80 mg 1 tablet Orally Once a day Active FreeStyle Wilma 2 Sensor - as directed Active Carvedilol 25 MG 1 tab(s) orally 2 ti mes a day Active FreeStyle Wilma 2 [place] - as directed Active Toujeo SoloStar 300 UNIT/ML 55 units subcutaneous daily at HS Active Synjardy XR 25-1000 MG 1 tablet with maykel akfast Orally Once a day 03/09/2023 Active Gabapentin 300 MG 1 cap(s) orally 2 ti mes a day; Duration: 30 day(s) 01/23/2024 Active GNP D 1000 25 MCG (1000 UT) TAKE ONE CAPSULE BY MOUTH EVERY DAY; Duration: 30 Active Ondansetron 4 MG 1 tablet on the tong ue and allow to dissolve Orally q6h prn 07/17/2023 Active Levsin/SL 0.125 MG 1 tablet under the t ongue and allow to dissolve as needed Sublingual Three times a day prn 07/17/2023 Active Furosemide 40 MG 1 tab(s) orally once a day as needed Active Immunizations Vaccine Route Administration Date Status Comme nts Fluzone High Dose (65yr and older) IM Intramuscular 07/02/2024 Administered Vital Signs Weight 219.6 lbs 07/02/2024 Blood pressure systolic 110 mm Hg 07/02/20 24 Blood pressure diastolic 70 mm Hg 024 Heart Rate 65 /min 07/02/2024 Height 68.50 in 07/02/2024 BMI 32.90 kg/m2 07/02/2024 Encounters Encounter Location Date Provider Diagnosis [facility] [address] [facility] [address] [place] [phone] 07/02/2024 Alejo [place] Type 2 diabetes kaushal itus without complication E11.9 ; Hyperlipidemia, unspecified hyperlipidemia type E78.5 ; Essential hypertension I10 and Encounter for immunization Z23 Assessments Encounter Date Diagnosis (ICD Code) Assessment Notes Treatment Notes Treatment Clinical Notes Section Notes 07/02/2024 Type 2 diabetes mellitus without complication (ICD-10 - E11.9) 07/02/2024 Hyperlipidemia, unspecified hyperlipidemia type (ICD-10 - E78.5) 07/02/2024 Essential hypertension (ICD-10 - I10) 07/02/2024 Encounter for immunization (ICD-10 - Z23) Plan Of Treatment Medication Medication Name Sig Start Date Stop Date Notes Atorvastatin Calcium 80 mg 1 tablet Orally Once a day Carvedilol 25 MG 1 tab(s) orally 2 times a day Toujeo SoloStar 300 UNIT/ML 55 units sub cutaneous daily at HS Synjardy XR 25-1000 MG 1 tablet with maykel akfast Orally Once a day 03/09/2023 Next Appt Details Follow Up: 6 Months, Reason: Provider Name:Alejo Kate , 07/03/2025 09:00:00 AM, [address], [address], [place], [phone], Progress Notes * Krish AREVALODOB:1955 ( 69 yo M)Acc No.[id number]:07/02/2024 Progress Notes Patient: Krish CHOUDHURY Provider: Kareem Busby M.D. :1955 A ge:68 Y S ex:Male Date:07/02/2024 Address:[facility] [place], [id number] Subjective: * Chief Complaints: * 1 . 6 month check. * HPI: C ardiology: 68 year old male presents with c/o Blood Pressure Elevated P t here for 6 mo f/u on hypertension, states he is doing well and does not have any concerns. c/o Hyperlipidemia P t is not fasting today. E ndocrinology: c/o Recent Blood Sugars P t here to f/u on DM 2, pt does have Wilma 2 and states his blood sugar has been good. * ROS: D ERMATOLOGY: no R orlando. n o H yolanda. G ASTROENTEROLOGY: no N ausea. n o V omiting. U ROLOGY: no D ifficulty urinating. n o B lood in urine. * Medical History: C oronary Artery Disease, 11 stents in total as of 2023, ST elevation CT, 7 Stents, Dr. Jameson- 07/02/2017 , Congestive Heart Failure, EF 30% 06/2017, EF 40% 08/2017, Pericardial Effusion, 08/2017, Type 2 Diabetes, Hyperlipidemia, Hypertension, Neuropathy, NSTEMI, 04/21/2019. * Surgical History: R T Knee, [place] 1999, Stent x5 - Dr. Jameson 07/02/2017, Stent x2 - Dr. Jameson 07/09/2017, Fluid Removed from Heart - Dr. Holman - [facility] 08/25/2017, Cardiac Stent x 1, Balloon x3 03/2019. * Hospitalization/Major Diagno stic Procedure: K idney Stones- [facility] 1998, CT & Stent placement- [facility] 07/02-, Cardiac Stent & Balloon- [facility] 03/2019, NSTEMI- [facility] 04/2019. * Family History: F ather: , High Blood Pressure. M other: . S iblings: Sister from Cancer. 2 brother(s) , 2 sister(s) . . * Social History: C URRENT TOBACCO USE S moking Status: Patient does NOT smoke. C affeine: no. Exercise: no. Marital Status: . Past smoking status: no, Smoking status: Does not smoke. Alcohol: No. * Medications: T aking Synjardy XR 25-1000 MG Tablet Extended Release 24 Hour 1 tablet with breakfast Orally Once a day , Taking Toujeo SoloStar 300 UNIT/ML Solution Pen-injector 55 units subcutaneous daily at HS , Taking FreeStyle Wilma 2 Sensor - Miscellaneous as directed , Taking FreeStyle Wilma 2 [place] - Device as directed , Taking Aspirin [...] once a day as needed , Taking Carvedilol 25 MG Tablet 1 [...] tablet Orally Once a day , Taking Gabapentin 300 MG Capsule 1 cap(s) orally 2 times a day , Taking GNP D 1000 25 MCG (1000 UT) Capsule TAKE ONE CAPSULE BY MOUTH EVERY DAY , Medication List reviewed and reconciled with the patient * Allergies: N .K.D.A. Objective: * Vitals: W t:219.6, Temp:98.1, BP:110/70, HR:65, Nurse:kwasi, Ht: 68.50, BMI:32.90. * Examination: E ndocrinology: General Appearance: N AD. H eart: R SR. L ungs:?clear to auscultation. Assessment: * Assessment: 1. T ype 2 diabetes mellitus without complication - E11.9 (Primary) 2 . H yperlipidemia, unspecified hyperlipidemia type - E78.5 3 . E ssential hypertension - I10 4 . E ncounter for immunization - Z23 Plan: * Treatment: Value Reference Range T SH reflex to FT4 1.81 0.43-5.25 - mU/L * Crystal Knight 07/03/2024 9:15 :49 AM >See phone encounter ?LAB: P-Microalbumin/Creatinine, Random Urine Sample (Collection Date & Time - 07/02/2024 08:24 AM)?a/c 1180* Value Reference Range A lbumin/Creatinine Ratio, Urine 1180 H 0-30 - ug /mg * C reatinine, Urine 23.9 - mg/dL * M icroalbumin, Urine, Random 28.2 - mg/dL * AntoniaCrystal fung 07/03/2024 9:15 :49 AM >See phone encounter ?LAB: Glucose (In-House) (Collection Date & Time - 07/02/2024)?205* Value Reference Range b korinaod glucose 205 74 - 106 mg/dL * Elizabeth Boswellira 07/02/2024 10:06: 05 AM >Alejo Busby 07/02/2024 9:44:10 PM > ?LAB: Glycohemoglobin A1c (in house) (Collection Date & Time - 07/02/2024)? 8.3* Value Reference Range g lycohemoglobin 8.3% 5 - 6.5 % * Fátima Boswell 07/02/2024 10:21: 48 AM > AntoniaCrystal 07/03/2024 9:15:49 AM >See phone encounter 2.?Hyperlipidemia, unspecified hyperlipidemia type? Continue Atorvastatin Calcium Tablet, 80 mg, 1 tablet, Orally, Once a day.?? 3.?Essential hypertension? Continue Carvedilol Tablet, 25 MG, 1 tab(s), orally, 2 times a day.?? * Immunizations: Fluzone High Dose (65yr and older) : 0.5 mL (Route: Intramuscular) given by Fátima Boswell on Right Deltoid (Encounter for immunization) * Procedure Codes: G 2211 Complex e/[place], [address] GLUCOSE TEST, [address]1035 GLYCATED HEMOGLOBIN TEST, Modifiers: QW * Follow Up: 6 Months * Images: Billing Information: * Visit Code: 04768 Office Visit, Est Pt., Level 4. * Procedure Codes: G2211 Complex e/[place]. [address] GLUCOSE TEST. 62267 GLYCATED HEMOGLOBIN TEST. Modifiers: QW * Electronic signature of Mitra Busby MD on 06/10/2025 at 02:31 PM EDT Sign off status: Pending * Provider: Kareem Busby M.D. Date: 09/01/2023 Generated for Nas coronado/Joe/eTransmitting on: 02:31 PM EDT History and Physical Notes * HPI (History of Present Illness) Category Sub-Category Detail Notes Category Not es Endocrinology Recent Blood Sugars Pt here to f /u on DM 2, pt does have Wilma 2 and states his blood sugar has been good Cardiology Blood Pressure Elevated Pt here for 6 mo f/u on hypertension, states he is doing well and does not have any concerns Hyperlipidemia Pt is not fasting to day Examination Category Sub-Category Detail Notes Category Not es Endocrinology Heart: RSR Lungs: clear to auscultatio n General Appearance: NAD
--- OUTSIDE RECORDS SUMMARY | 2024-07-02 05:00 | XMS_ITS ---
Author Organization [facility] Address [address] [place] [phone] Care Team Providers Care Electronic Organ Technician Name Role Phone Alejo Busby Primary Care [...] Interpretation:Normal Performing Lab: Notes/Report: Test performed by [facility] [address] [place] [address] , [place] [id number] Phoenix Montgomery MD, Lacing Cutter CLIA: [id number] TSH reflex to FT4 1.81 0.43-5.25 mU/L P-Microalbumin/Creatinine, R andom Urine Sample Reviewed date:07/03/2024 09:15:58 AM Interpretation:a/c 1180 Performing Lab: Notes/Report: Test performed by [facility] [address] [place], [place] [address] [place] , [place] [address] Phoenix Montgomery MD, Lacing Cutter CLIA: [id number] Albumin/Creatinine Ratio, Urine 1180 0-30 ug/m g [...] mes a day Active FreeStyle Wilma 2 [place] - as directed Active Toujeo SoloStar 300 [...] older) IM Intramuscular 07/02/2024 Administered Vital Signs Blood pressure systolic 110 mm Hg 07/02/20 24 Blood pressure diastolic 70 mm Hg 024 Heart Rate 65 /min 07/02/2024 Height 68.50 in 07/02/2024 Weight 219.6 lbs 07/02/2024 BMI 32.90 kg/m2 07/02/2024 Encounters Encounter Location Date Provider Diagnosis [facility] [facility] [address] [place] [phone] 07/02/2024 Alejo [place] Type 2 diabetes kaushal itus without complication [address], [place], [phone], Progress Notes * Krish AREVALODOB:1955 ( 69 yo M)Acc No.[id number]:07/02/2024 Progress Notes Patient: Krish CHOUDHURY Provider: Kareem Busby M.D. :1955 A ge:68 Y S ex:Male Date:07/02/2024 Address:[facility] [address] [address], [id number] Subjective: * Chief [...] in total as of 2023, ST elevation [place], 7 Stents, Dr. Jameson- 07/02/2017 , Congestive Heart Failure, EF 30% 06/2017, EF 40% 08/2017, Pericardial Effusion, 08/2017, Type 2 Diabetes, Hyperlipidemia, Hypertension, Neuropathy, NSTEMI, 04/21/2019. * Surgical History: R T Knee, [place] 1999, Stent x5 - Dr. Jameson 07/02/2017, Stent x2 - Dr. Jameson 07/09/2017, Fluid Removed from Heart - Dr. Holman - [facility] 08/25/2017, Cardiac Stent x 1, Balloon x3 03/2019. * Hospitalization/Major Diagno stic Procedure: K idney Stones- [facility] 1998, [place] & Stent placement- [facility] 07/02-, Cardiac Stent & Balloon- [facility] 03/2019, NSTEMI- [facility] 04/2019. * Family History: F ather: , [...] as directed , Taking FreeStyle Wilma 2 [place] - Device as directed , Taking Aspirin [...] glucose 205 74 - 106 mg/dL * Fátima Boswell 07/02/2024 10:06: 05 AM >Alejo Busby 07/02/2024 9:44:10 PM > ?LAB: Glycohemoglobin A1c (in house) (Collection Date & Time - 07/02/2024)? 8.3* Value Reference Range g lycohemoglobin 8.3% 5 - 6.5 % * Fátima Boswell 07/02/2024 10:21: 48 AM > Deyvi Knightia 07/03/2024 9:15:49 AM >See phone encounter 2.?Hyperlipidemia, [...] G 2211 Complex e/[place], [address] GLUCOSE TEST, 32846 GLYCATED HEMOGLOBIN TEST, Modifiers: QW * Follow Up: 6 Months * Images: Billing Information: * Visit Code: 69566 Office Visit, Est Pt., Level 4. * Procedure Codes: G2211 Complex e/[place]. [address] GLUCOSE TEST. 73672 GLYCATED HEMOGLOBIN TEST. Modifiers: QW * Electronic signature of Mitra Busby MD on 06/11/2025 at 10:07 AM EDT Sign off status: Pending * Provider: Kareem Busby M.D. Date: 09/01/2023 Generated for Nas coronado/Joe/eTransmitting on: 10:07 AM EDT History and Physical Notes [...]
--- OUTSIDE RECORDS SUMMARY | 2024-09-16 06:00 | XMS_ITS ---
Author Organization [facility] Address [address] [place] [phone] Care Team Providers Care Assisted Living Home Director Name Role Phone Freddy Busbyian Primary Care Provider Allergies No Known Allergies Results Component Value Reference Range Notes Influenza Screen (in house) Reviewed date:09/16/2024 12:21:52 PM Interpretation: Performing Lab: Notes/Report: results Pos A REASON FOR VISIT URI Medications Medication SIG (Take, Route, Frequency, Duration) Notes Start Date End Date Status GNP D 1000 25 MCG (1000 UT) TAKE ONE CAPSULE BY MOUTH EVERY DAY; Duration: 30 Active Gabapentin 300 MG 1 cap(s) orally 2 ti mes a day; Duration: 30 day(s) 08/05/2024 Active Atorvastatin Calcium 80 mg 1 tablet Oral ly Once a day; Duration: 30 days Active Promethazine-DM 6.25-15 MG/5ML 5 ml as needed Orally every 6 hrs 09/16/2024 Active Tamiflu 75 MG 1 capsule Orally Twi ce a day; Duration: 5 day(s) 09/16/2024 Active Toujeo SoloStar 300 UNIT/ML 55 units subcutaneous daily at HS Active Synjardy XR 25-1000 MG 1 tablet with maykel akfast Orally Once a day 03/09/2023 Active Carvedilol 25 MG 1 tab(s) orally 2 ti mes a day Active Levsin/SL 0.125 MG 1 tablet under the t ongue and allow to dissolve as needed Sublingual Three times a day prn 07/17/2023 Active Ondansetron 4 MG 1 tablet on the tong ue and allow to dissolve Orally q6h prn 07/17/2023 Active ProAir Digihaler 108 (90 Base) MCG/ACT 1 or 2 puff(s) inhaled 4 times a day as needed; Duration: 25 Active Vitamin B-12 1000 MCG 1 tab(s) orally once a day 0 03/26/2019 Active Clopidogrel Bisulfate 75 MG 1 tab(s) orally once a day A ctive Entresto 97-103 MG 1 tab(s) orally 2 ti mes a day Active Furosemide 40 MG 1 tab(s) orally once a day as needed Active FreeStyle Wilma 2 Sensor - as directed Active FreeStyle Wilma 2 [place] - as directed Active Aspirin 81 81 MG 1 tablet Orally Once a day; Duration: 30 day(s) Active Vital Signs Blood pressure systolic 112 mm Hg 09/16/19 25 Blood pressure diastolic 70 mm Hg 025 Heart Rate 65 /min 09/16/2024 Height 68.50 in 09/16/2024 Weight 209.4 lbs 09/16/2024 BMI 31.37 kg/m2 09/16/2024 Encounters Encounter Location Date Provider Diagnosis [facility] [address] [facility] [address] [place] [phone] 09/16/2024 Alejo Busby Influenza A J 10.1 Assessments Encounter Date Diagnosis (ICD Code) Assessment Notes Treatment Notes Treatment Clinical Notes Section Notes 09/16/2024 Influenza A (ICD-10 - J10.1) Plan Of Treatment Medication Medication Name Sig Start Date Stop Date Notes Promethazine-DM 6.25-15 MG/5ML 5 ml as n eeded Orally every 6 hrs 09/16/2024 Tamiflu 75 MG 1 capsule Orally Twi ce a day; Duration: 5 day(s) 09/16/2024 Next Appt Details Follow Up: prn, Reason: Provider Name:Alejo Kate ry, 07/03/2025 09:00:00 AM, [address] [facility], [address], [place], [phone], Progress Notes * Krish AREVALODOB:1955 ( 69 yo M)Acc No.[id number]:09/16/2024 Progress Notes Patient: Krish CHOUDHURY Provider: Kareem Busby M.D. :1955 A ge:68 Y S ex:Male Date:09/16/2024 Address:[address], [place], [id number] Subjective: * Chief Complaints: * 1 . URI. * HPI: E NT/respiratory: 68 year old male presents with c/o cough P t complains is greenish yellow sputum production cough for 3 days. * ROS: D ERMATOLOGY: no R orlando. n o H yolanda. G ASTROENTEROLOGY: no N ausea. n o V omiting. U ROLOGY: no D ifficulty urinating. n o B lood in urine. * Medical History: C oronary Artery Disease, 11 stents in total as of 2023, ST elevation [place], 7 Stents, Dr. Jameson- 07/02/2017 , Congestive Heart Failure, EF 30% 06/2017, EF 40% 08/2017, Pericardial Effusion, 08/2017, Type 2 Diabetes, Hyperlipidemia, Hypertension, Neuropathy, NSTEMI, 04/21/2019. * Surgical History: R T Knee, 1999, Stent x5 - Dr. Jameson 07/02/2017, Stent x2 - Dr. Jameson 07/09/2017, Fluid Removed from Heart - Dr. Holman - [facility] 08/25/2017, Cardiac Stent x 1, Balloon x3 03/2019. * Hospitalization/Major Diagno stic Procedure: K idney Stones- [facility] 1998, [place] & Stent placement- [facility] 07/02-, Cardiac Stent & Balloon- [facility] 03/2019, NSTEMI- [facility] 04/2019. * Family History: F ather: , [...] as directed , Taking FreeStyle Wilma 2 [place] - Device as directed , Taking Aspirin [...] once a day as needed , Taking Ondansetron 4 MG Tablet Disintegrating 1 tablet on the tongue and allow to dissolve Orally q6h prn , Taking Levsin/SL 0.125 MG Tablet Sublingual 1 tablet under the tongue and allow to dissolve as needed Sublingual Three times a day prn , Taking Synjardy XR 25-1000 MG Tablet Extended Release 24 Hour 1 tablet with breakfast Orally Once a day , Taking Toujeo SoloStar 300 UNIT/ML Solution Pen-injector 55 units subcutaneous daily at HS , Taking Carvedilol 25 MG Tablet 1 tab(s) orally 2 times a day , Taking Atorvastatin Calcium 80 mg Tablet 1 tablet Orally Once a day , Taking Gabapentin 300 MG Capsule 1 cap(s) orally 2 times a day , Taking GNP D 1000 25 MCG (1000 UT) Capsule TAKE ONE CAPSULE BY MOUTH EVERY DAY , Medication List reviewed and reconciled with the patient * Allergies: N .K.D.A. Objective: * Vitals: W t:209.4, Temp:98.4, BP:112/70, HR:65, O2 Sat:96% on RA, Nurse:kwasi, Ht: 68.50, BMI:31.37. * Examination: E NT/Respiratory: General Appearance: N AD. O ral cavity : erythema without exudate on pharynx. H eart : R RR, normal S1 S2. L ungs: c lear to auscultation bilaterally. Assessment: * Assessment: 1. I ammy A - J10.1 (Primary) Plan: * Treatment: Value Reference Range r esults Pos A * Fátima Boswell 09/16/2024 10:02:35 AM > , Provider reviewed results while patient in office. * Procedure Codes: G 2211 Complex e/[place], [address] [place] [address] Flu Test- Nasal Swab, Modifiers: QW , 3074F SYST BP LT 130 MM HG, 3078F DIAST BP < 80 MM HG * Follow Up: p rn * Images: Billing Information: * Visit Code: 78257 Office Visit, Est Pt., Level 3. * Procedure Codes: G2211 Complex e/[place] [address] [place] [address] Flu Test- Nasal Swab. Modifiers: QW 3074F SYST BP LT 130 MM HG. 3078F DIAST BP < 80 MM HG. * Electronic signature of Mitra Busby MD on 06/11/2025 at 10:07 AM EDT Sign off status: Pending * Provider: Kareem Busby M.D. Date: 0 09/16/2024 Generated for Nas coronado/Joe/Nellaitting on: 10:07 AM EDT History and Physical Notes * HPI (History of Present Illness) Category Sub-Category Detail Notes Category Not es ENT/respiratory cough Pt complains is greenish yellow sputum production cough for 3 days Examination Category Sub-Category Detail Notes Category Not es ENT/Respiratory Oral cavity : erythema without exudate on pharynx Heart : RRR, normal S1 S2 Lungs: clear to auscultatio n bilaterally General Appearance: NAD
--- OUTSIDE RECORDS SUMMARY | 2024-09-16 06:00 | XMS_ITS ---
Author Organization [facility] Address [address] [place] [phone] Care Team Providers Care Head Lineman Name Role Phone Freddy Busbyian Primary Care [...] - as directed Active FreeStyle Wilma 2 [place] - as directed Active Aspirin 81 81 MG 1 tablet Orally Once a day; Duration: 30 day(s) Active Vital Signs Weight 209.4 lbs 09/16/2024 Blood pressure systolic 112 mm Hg 09/16/19 25 Blood pressure diastolic 70 mm Hg 025 Heart Rate 65 /min 09/16/2024 Height 68.50 in 09/16/2024 BMI 31.37 kg/m2 09/16/2024 Encounters Encounter Location Date Provider Diagnosis [facility] [address] [facility] [address] [place] [phone] 09/16/2024 Alejo Busby Influenza A J 10.1 [...] 07/03/2025 09:00:00 AM, [address] [facility], [address], [place], [phone], Progress Notes * Krish AREVALODOB:1955 ( 69 yo M)Acc No.[id number]:09/16/2024 Progress Notes Patient: Krish CHOUDHURY Provider: Kareem Busby M.D. :1955 A ge:68 Y S ex:Male Date:09/16/2024 Address:[address], [place], [id number] Subjective: * Chief Complaints: * 1 . [...] in total as of 2023, ST elevation [place], 7 Stents, Dr. Jameson- 07/02/2017 , Congestive Heart Failure, EF 30% 06/2017, EF 40% 08/2017, Pericardial Effusion, 08/2017, Type 2 Diabetes, Hyperlipidemia, Hypertension, Neuropathy, NSTEMI, 04/21/2019. * Surgical History: R T Knee, 1999, Stent x5 - Dr. Jameson 07/02/2017, Stent x2 - Dr. Jameson 07/09/2017, Fluid Removed from Heart - Dr. Holman - [facility] 08/25/2017, Cardiac Stent x 1, Balloon x3 03/2019. * Hospitalization/Major Diagno stic Procedure: K idney Stones- [facility] 1998, [place] & Stent placement- [facility] 07/02-, Cardiac Stent & Balloon- [facility] 03/2019, NSTEMI- [facility] 04/2019. * Family History: F [...] as directed , Taking FreeStyle Wilma 2 [place] - Device as directed , Taking Aspirin [...] G 2211 Complex e/[place], [address] [place], [address] Flu Test- Nasal Swab, Modifiers: QW , 3074F SYST BP LT 130 MM HG, 3078F DIAST BP < 80 MM HG * Follow Up: p rn * Images: Billing Information: * Visit Code: 90727 Office Visit, Est Pt., Level 3. * Procedure Codes: G2211 Complex e/[place] [address] [place] [address] Flu Test- Nasal Swab. Modifiers: QW 3074F SYST BP LT 130 MM HG. 3078F DIAST BP < 80 MM HG. * Electronic signature of Mitra Busby MD on 06/10/2025 at 02:31 PM EDT Sign off status: Pending * Provider: Kareem Busby M.D. Date: 0 09/16/2024 Generated for Nas coronado/Joe/Nellaitting on: 1 02:31 PM EDT History and Physical Notes [...]
--- OUTSIDE RECORDS SUMMARY | 2024-12-31 05:00 | XMS_ITS ---
Author Organization [facility] Address [address] [place] [id number] Care Team Providers Care Fan Blade Truer Name Role Phone Alejo Busby Primary Care Provider Allergies No Known Allergies Results Component Value Reference Range Notes Glycohemoglobin A1c (in hous e) Reviewed date:12/31/2024 12:14:56 PM Interpretation: Performing Lab: Notes/Report: glycohemoglobin 8.1% 5 - 6.5 % P-Comprehensive Metabolic Pa lety (CMP) Reviewed date:01/01/2025 01:01:34 PM Interpretation:gluc 195, prot 5.9 Performing Lab: Notes/Report: Test performed by [facility] [address] [place] [address] , [address], [place] [address] Phoenix Montgomery MD, [employer] CLIA: [id number] Sodium 140 135-145 mmol/L Potassium 4.6 3.5-5.3 mmol/L Chloride 105 97-108 mmol/L CO2 24 22-32 mmol/L Glucose 195 65-99 mg/dL BUN 13 8-23 mg/dL Creatinine 1.06 0.70-1.30 mg/dL Calcium 8.6 8.6-10.4 mg/dL eGFR by Creatinine 75 >59 mL/min/1.73m2 Protein 5.9 6.0-8.3 g/dL Albumin 3.6 3.5-5.3 g/dL Alkaline Phosphatase 99 40-129 IU/L ALT (SGPT) 13 <5-55 IU/L AST (SGOT) 15 <5-46 IU/L Bilirubin, Total 0.5 <0.2-1.2 mg/dL A/G Ratio 1.6 1.1-2.5 P-Vitamin D 25-Hydroxy Reviewed date:01/01/2025 01:01:34 PM Interpretation:25.3 Performing Lab: Notes/Report: Test performed by [facility] [address] [place] [address] , [address], [place] [address] Phoenix Montgomery MD, [employer] CLIA: [id number] Vitamin D 25-Hydroxy 25.3 30.0-100.0 ng/mL Interpretation of Vitamin D 25 [place]: < 20 ng/mL - Deficiency 20 - 29 ng/mL - Insufficiency 30 - 100 ng/mL - Sufficiency > 100 ng/mL - Super-therapeutic- toxicity may occur above this level. Clinical correlation required. REASON FOR VISIT 6 month f/u Medications Medication SIG (Take, Route, Frequency, Duration) Notes Start Date End Date Status Gabapentin 300 MG 1 cap(s) orally 2 ti mes a day; Duration: 30 day(s) 08/05/2024 Active GNP D 1000 25 MCG (1000 UT) TAKE ONE CAPSULE BY MOUTH EVERY DAY; Duration: 30 Active Vitamin B-12 1000 MCG 1 tab(s) orally once a day 0 03/26/2019 Active Entresto 97-103 MG 1 tab(s) orally 2 ti mes a day Active Clopidogrel Bisulfate 75 MG 1 tab(s) orally once a day A ctive Furosemide 40 MG 1 tab(s) orally once a day as needed Active Aspirin 81 81 MG 1 tablet Orally Once a day; Duration: 30 day(s) Active ProAir Digihaler 108 (90 Base) MCG/ACT 1 or 2 puff(s) inhaled 4 times a day as needed; Duration: 25 Active Basaglar KwikPen 100 UNIT/ML 55 units Subcutaneous every day, at bedtime 09/24/2024 Active FreeStyle Wilma 2 [place] - as directed Active FreeStyle Wilma 2 Sensor - as directed Active Atorvastatin Calcium 80 mg 1 tablet Orally Once a day Active Synjardy XR 25-1000 MG 1 tablet with maykel akfast Orally Once a day 03/09/2023 Active Carvedilol 25 MG 1 tab(s) orally 2 ti mes a day Active Problems Problem Type SNOMED Code ICD Code Onset Dates Problem Status W/U Status Risk Notes Problem Diabetic peripheral neuropathy associated with type 2 diabetes mellitus (2607016656149) Type 2 diabetes mellitus with diabetic neuropathy, without long-term current use of insulin (E11.40) Active confirmed Problem Peripheral circulatory disorder associated with diabetes mellitus (354282522) Type 2 diabetes mellitus with other circulatory complications (E11.59) Active confirmed Problem Hypertensive heart failure (17311902) Hypertensive heart disease with heart failure (I11.0) Active confirmed Problem Heart failure (21858044) Heart failure, unspecified HF chronicity, unspecified heart failure type (I50.9) Active confirmed Problem Atrial fibrillation (44818908) Atrial fibrillation, unspecified type (I48.91) Active confirmed Problem Atrial flutter (5108621) Atrial flutter, unspecified type (I48.92) Active confirmed Problem Body mass index 30.00 to 34.99 (618996659079988 ) BMI 31.0-31.9,adult (Z68.31) Active confirmed Vital Signs Weight 207.4 lbs 12/31/2024 Blood pressure systolic 140 mm Hg 01/01/20 25 Blood pressure diastolic 72 mm Hg 025 Heart Rate 55 /min 12/31/2024 Height 68.50 in 12/31/2024 BMI 31.07 kg/m2 12/31/2024 Encounters Encounter Location Date Provider Diagnosis [facility] [address] [id number] 12/31/2024 Alejo Busby Type 2 diabetes kaushal itus without complication E11.9 ; Essential hypertension I10 ; Hyperlipidemia, unspecified hyperlipidemia type E78.5 ; Vitamin D deficiency E55.9 ; Congestive heart failure, unspecified congestive heart failure chronicity, unspecified congestive heart failure type I50.9 ; Type 2 diabetes mellitus with diabetic neuropathy, without long-term current use of insulin E11.40 ; Type 2 diabetes mellitus with other circulatory complications E11.59 ; Hypertensive heart disease with heart failure I11.0 ; Heart failure, unspecified HF chronicity, unspecified heart failure type I50.9 ; Atrial fibrillation, unspecified type I48.91 ; Atrial flutter, unspecified type I48.92 and BMI 31.0-31.9,adult Z68.31 Assessments Encounter Date Diagnosis (ICD Code) Assessment Notes Treatment Notes Treatment Clinical Notes Section Notes 12/31/2024 Type 2 diabetes mellitus without complication (ICD-10 - E11.9) 12/31/2024 Essential hypertension (ICD-10 - I10) 12/31/2024 Hyperlipidemia, unspecified hyperlipidemia type (ICD-10 - E78.5) 12/31/2024 Vitamin D deficiency (ICD-10 - E55.9) 12/31/2024 Congestive heart failure, unspecified congestive heart failure chronicity, unspecified congestive heart failure type (ICD-10 - I50.9) 12/31/2024 Type 2 diabetes mellitus with diabetic neuropathy, without long-term current use of insulin (ICD-10 - E11.40) 12/31/2024 Type 2 diabetes mellitus with other circulatory complications (ICD-10 - E11.59) 12/31/2024 Hypertensive heart disease with heart failure (ICD-10 - I11.0) 12/31/2024 Heart failure, unspecified HF chronicity, unspecified heart failure type (ICD-10 - I50.9) 12/31/2024 Atrial fibrillation, unspecified type (ICD-10 - I48.91) 12/31/2024 Atrial flutter, unspecified type (ICD-10 - I48.92) 12/31/2024 BMI 31.0-31.9,adult (ICD-10 - Z68.31) Plan Of Treatment Medication Medication Name Sig Start Date Stop Date Notes Basaglar KwikPen 100 UNIT/ML 55 units [place] bcutaneous every day, at bedtime 09/24/2024 Atorvastatin Calcium 80 mg 1 tablet Orally Once a day Synjardy XR 25-1000 MG 1 tablet with maykel akfast Orally Once a day 03/09/2023 Carvedilol 25 MG 1 tab(s) orally 2 times a day Next Appt Details Follow Up: 6 Months, Reason: Provider Name:Alejo Kate ry, 07/03/2025 09:00:00 AM, [address], [address] , [place], [place], [phone], Progress Notes * Krish AREVALODOB:1955 ( 69 yo M)Acc No.[id number]:12/31/2024 Progress Notes Patient: Krish CHOUDHURY Provider: Kareem Busby M.D. :1955 A ge:69 Y S ex:Male Date:12/31/2024 Address:[address], [id number] Subjective: * Chief Complaints: * 1 . 6 month f/u. * HPI: C ardiology: 69 year old male presents with c/o BloodPressure at Home T he pt is here for a check up on Hypertension and Hyperlipidemia. Pt states he is does check his BP twice a week at PT and it is doing good. Pt is not fasting. Denies : Chest Pain. D enies : Short of Breath. D enies : Dizziness. D enies : Palpitations. E ndocrinology: c/o Recent Blood Sugars T he pt is here for a check up on Diabetes. Pt states he does check his glucose daily with the free style wilma and it is c onsistently less than 200. * ROS: D ERMATOLOGY: no R orlando. n o H yolanda. G ASTROENTEROLOGY: no N ausea. n o V omiting. n o D iarrhea.? U ROLOGY: no D ifficulty urinating. n o B lood in urine. * Medical History: C oronary Artery Disease, 11 stents in total as of 2023, ST elevation MS, 7 Stents, Dr. Jameson- 07/02/2017 , Congestive Heart Failure, EF 30% 06/2017, EF 40% 08/2017, Pericardial Effusion, 08/2017, Type 2 Diabetes, Hyperlipidemia, Hypertension, Neuropathy, NSTEMI, 04/21/2019. * Surgical History: R T Knee, [place] 1999, Stent x5 - Dr. Jameson 07/02/2017, Stent x2 - Dr. Jameson 07/09/2017, Fluid Removed from Heart - Dr. Holman - [facility] 08/25/2017, Cardiac Stent x 1, Balloon x3 03/2019. * Hospitalization/Major Diagno stic Procedure: K idney Stones- [facility] 1998, MS & Stent placement- [facility] 07/02-, Cardiac Stent & Balloon- [facility] 03/2019, NSTEMI- [facility] 04/2019. * Family History: F ather: [...] as directed , Taking FreeStyle Wilma 2 [place] - Device as directed , Taking Aspirin [...] once a day as needed , Taking Synjardy XR 25-1000 MG Tablet Extended Release 24 Hour 1 tablet with breakfast Orally Once a day , Taking Carvedilol 25 MG Tablet 1 tab(s) orally 2 times a day , Taking Atorvastatin Calcium 80 mg Tablet 1 tablet Orally Once a day , Taking Gabapentin 300 MG Capsule 1 cap(s) orally 2 times a day , Taking GNP D 1000 25 MCG (1000 UT) Capsule TAKE ONE CAPSULE BY MOUTH EVERY DAY , Taking Basaglar KwikPen 100 UNIT/ML Solution Pen-injector 55 units Subcutaneous every day, at bedtime , Discontinued Ondansetron 4 MG Tablet Disintegrating 1 tablet on the tongue and allow to dissolve Orally q6h prn , Discontinued Levsin/SL 0.125 MG Tablet Sublingual 1 tablet under the tongue and allow to dissolve as needed Sublingual Three times a day prn , Discontinued Tamiflu 75 MG Capsule 1 capsule Orally Twice a day , Discontinued Promethazine-DM 6.25-15 MG/5ML Syrup 5 ml as needed Orally every 6 hrs , Medication List reviewed and reconciled with the patient * Allergies: N .K.D.A. Objective: * Vitals: W t: 207.4, Temp: 97.9, BP: 140/72, HR: 55, O2 Sat: 98% on RA, Nurse: TIAN, Ht: 68.50, BMI:31.07. * Examination: E ndocrinology: General Appearance: N AD. T hyroid exam: n o enlargement. H eart: R SR. L ungs: c lear to auscultation. E xtremities: n o leg edema. Assessment: * Assessment: 1. T ype 2 diabetes mellitus without complication - E11.9 (Primary) 2 . E ssential hypertension - I10 3 . H yperlipidemia, unspecified hyperlipidemia type - E78.5 4 . V itamin D deficiency - E55.9 5 . C ongestive heart failure, unspecified congestive heart failure chronicity, unspecified congestive heart failure type - I50.9 6 . T ype 2 diabetes mellitus with diabetic neuropathy, without long-term current use of insulin - E11.40 7 . T ype 2 diabetes mellitus with other circulatory complications - E11.59 8 . H ypertensive heart disease with heart failure - I11.0 9 . H eart failure, unspecified HF chronicity, unspecified heart failure type - I50.9 1 0. A trial fibrillation, unspecified type - I48.91 ? 1 1. A trial flutter, unspecified type - I48.92 1 2. B MS 31.0-31.9,adult - Z68.31 Plan: * Treatment: Value Reference Range A /G Ratio 1.6 1.1-2.5 - * A lbumin 3.6 3.5-5.3 - g/dL * A lkaline Phosphatase 99 40-129 - IU/L * A LT (SGPT) 13 <5-55 - IU/L * A ST (SGOT) 15 <5-46 - IU/L * B ilirubin, Total 0.5 <0.2-1.2 - mg/dL * B UN 13 8-23 - mg/dL * C alcium 8.6 8.6-10.4 - mg/dL * C hloride 105 97-108 - mmol/L * C O2 24 22-32 - mmol/L * C reatinine 1.06 0.70-1.30 - mg/dL * G lucose 195 H 65-99 - mg/dL * P otassium 4.6 3.5-5.3 - mmol/L * S odium 140 135-145 - mmol/L * P rotein 5.9 L 6.0-8.3 - g/dL * e GFR by Creatinine 75 >59 - mL/min/1.73m2 * Crystal Knight 01/01/2025 01:0 1:29 PM > See phone encounter ?LAB: Glycohemoglobin A1c (in house) (Collection Date & Time - 12/31/2024)* Value Reference Range g lycohemoglobin 8.1% 5 - 6.5 % * Nichole Devi 12/31/2024 09 :55:50 AM > Provider reviewed results while patient in office. 2.?Essential hypertension? Continue Carvedilol Tablet, 25 MG, 1 tab(s), orally, 2 times a day.?LAB: P-Comprehensive Metabolic Panel (CMP) (Collection Date & Time - 12/31/2024 08:40 AM)?gluc 195, prot 5.9* Value Reference Range A /G Ratio 1.6 1.1-2.5 - * A lbumin 3.6 3.5-5.3 - g/dL * A lkaline Phosphatase 99 40-129 - IU/L * A LT (SGPT) 13 <5-55 - IU/L * A ST (SGOT) 15 <5-46 - IU/L * B ilirubin, Total 0.5 <0.2-1.2 - mg/dL * B UN 13 8-23 - mg/dL * C alcium 8.6 8.6-10.4 - mg/dL * C hloride 105 97-108 - mmol/L * C O2 24 22-32 - mmol/L * C reatinine 1.06 0.70-1.30 - mg/dL * G lucose 195 H 65-99 - mg/dL * P otassium 4.6 3.5-5.3 - mmol/L * S odium 140 135-145 - mmol/L * P rotein 5.9 L 6.0-8.3 - g/dL * e GFR by Creatinine 75 >59 - mL/min/1.73m2 * Crystal Knihgt 01/01/2025 01:0 1:29 PM > See phone encounter 3.?Hyperlipidemia, unspecified hyperlipidemia type? Continue Atorvastatin Calcium Tablet, 80 mg, 1 tablet, Orally, Once a day.?LAB: P-Comprehensive Metabolic Panel (CMP) (Collection Date & Time - 12/31/2024 08:40 AM)?gluc 195, prot 5.9* Value Reference Range A /G Ratio 1.6 1.1-2.5 - * A lbumin 3.6 3.5-5.3 - g/dL * A lkaline Phosphatase 99 40-129 - IU/L * A LT (SGPT) 13 <5-55 - IU/L * A ST (SGOT) 15 <5-46 - IU/L * B ilirubin, Total 0.5 <0.2-1.2 - mg/dL * B UN 13 8-23 - mg/dL * C alcium 8.6 8.6-10.4 - mg/dL * C hloride 105 97-108 - mmol/L * C O2 24 22-32 - mmol/L * C reatinine 1.06 0.70-1.30 - mg/dL * G lucose 195 H 65-99 - mg/dL * P otassium 4.6 3.5-5.3 - mmol/L * S odium 140 135-145 - mmol/L * P rotein 5.9 L 6.0-8.3 - g/dL * e GFR by Creatinine 75 >59 - mL/min/1.73m2 * Crystal Knight 01/01/2025 01:0 1:29 PM > See phone encounter 4.?Vitamin D deficiency?LAB: P-Vitamin D 25-Hydroxy (Collection Date & Time - 12/31/2024 08:40 AM)? 25.3* Value Reference Range V itamin D 25-Hydroxy 25.3 L 30.0-100.0 - ng/mL * Crystal Knight 01/01/2025 01:0 1:29 PM > See phone encounter * Procedure Codes: G 2211 Complex e/[place], [address] GLYCATED HEMOGLOBIN TEST, Modifiers: QW , 3052F HG A1C>EQUAL 8.0%<EQUAL 9.0%, G8753 MOST RECENT SYSTOLIC BP >= 140MM HG, G8754 MOST RECENT DIASTOLIC BP < 90MM HG * Follow Up: 6 Months * Images: Billing Information: * Visit Code: 62112 Office Visit, Est Pt., Level 4. * Procedure Codes: G2211 Complex e/[place]. [address] GLYCATED HEMOGLOBIN TEST. Modifiers: QW 3052F HG A1C>EQUAL 8.0%<EQUAL 9.0%. G8753 MOST RECENT SYSTOLIC BP >= 140MM HG. G8754 MOST RECENT DIASTOLIC BP < 90MM HG. * Electronic signature of Mitra Busby MD on 06/10/2025 at 02:32 PM EDT Sign off status: Pending * Provider: Kareem Busby M.D. Date: 0 12/31/2024 Generated for Nas coronado/Joe/Nellaitting on: 1 02:32 PM EDT History and Physical Notes * HPI (History of Present Illness) Category Sub-Category Detail Notes Category Not es Endocrinology Recent Blood Sugars The pt is he re for a check up on Diabetes. Pt states he does check his glucose daily with the free style wilma and it is consistently less than 200 Cardiology Short of Breath Chest Pain Palpitations Dizziness BloodPressure at Home The pt is here for a check up on Hypertension and Hyperlipidemia. Pt states he is does check his BP twice a week at PT and it is doing good. Pt is not fasting Examination Category Sub-Category Detail Notes Category Not es Endocrinology Heart: RSR Lungs: clear to auscultatio n Extremities: no leg edema General Appearance: NAD Thyroid exam: no enlargement
--- OUTSIDE RECORDS SUMMARY | 2024-12-31 05:00 | XMS_ITS ---
Author Organization [facility] Address [address] [place] [id number] Care Team Providers Care Telemetry Technician Name Role Phone Alejo Busby Primary Care Provider Allergies No Known Allergies Results Component Value Reference Range Notes Glycohemoglobin A1c (in hous e) Reviewed date:12/31/2024 12:14:56 PM Interpretation: Performing Lab: Notes/Report: glycohemoglobin 8.1% 5 - 6.5 % P-Comprehensive Metabolic Pa lety (CMP) Reviewed date:01/01/2025 01:01:34 PM Interpretation:gluc 195, prot 5.9 Performing Lab: Notes/Report: Test performed by [email or web address], [employer] [employer] [address] [place] [address] , [address], [place] [address] Phoenix Montgomery MD, [employer] Expert CLIA: [id number] Sodium 140 135-145 mmol/L Potassium 4.6 3.5-5.3 [...] Interpretation:25.3 Performing Lab: Notes/Report: Test performed by [facility] [address] [place] [address] , [address], [place] [address] Phoenix Montgomery MD, Time Lock Expert CLIA: [id number] Vitamin D 25-Hydroxy 25.3 30.0-100.0 ng/mL Interpretation [...] at bedtime 09/24/2024 Active FreeStyle Wilma 2 [place] - as directed Active FreeStyle Wilma 2 [...] neuropathy associated with type 2 diabetes mellitus (6025160435215) Type 2 diabetes mellitus with diabetic neuropathy, without long-term current use of insulin (E11.40) Active confirmed Problem Peripheral circulatory disorder associated with diabetes mellitus (195444607) Type 2 diabetes mellitus with other circulatory complications (E11.59) Active confirmed Problem Hypertensive heart failure (93729086) Hypertensive heart disease with heart failure (I11.0) Active confirmed Problem Heart failure (57861992) Heart failure, unspecified HF chronicity, unspecified heart failure type (I50.9) Active confirmed Problem Atrial fibrillation (15700554) Atrial fibrillation, unspecified type (I48.91) Active confirmed Problem Atrial flutter (2897383) Atrial flutter, unspecified type (I48.92) Active confirmed Problem Body mass index 30.00 to 34.99 (821992132472426 ) BMI 31.0-31.9,adult (Z68.31) Active confirmed Vital Signs Blood pressure systolic 140 mm Hg 01/01/20 25 Blood pressure diastolic 72 mm Hg 025 Heart Rate 55 /min 12/31/2024 Height 68.50 in 12/31/2024 Weight 207.4 lbs 12/31/2024 BMI 31.07 kg/m2 12/31/2024 Encounters Encounter Location Date Provider Diagnosis [facility] [address] [phone] 12/31/2024 Alejo Busby Type 2 diabetes kaushal [...] [address], [address] , [place], [place], [id number], Progress Notes * Krish AREVALODOB:1955 ( 69 yo M)Acc No.[id number]:12/31/2024 Progress Notes Patient: Krish CHOUDHURY Provider: Kareem Busby M.D. :1955 A ge:69 Y S ex:Male Date:12/31/2024 Address:[address], [id number] Subjective: * Chief Complaints: * 1 . [...] in total as of 2023, ST elevation ID, 7 Stents, Dr. Jameson- 07/02/2017 , Congestive Heart Failure, EF 30% 06/2017, EF 40% 08/2017, Pericardial Effusion, 08/2017, Type 2 Diabetes, Hyperlipidemia, Hypertension, Neuropathy, NSTEMI, 04/21/2019. * Surgical History: R T Knee, [place] 1999, Stent x5 - Dr. Jameson 07/02/2017, Stent x2 - Dr. Jameson 07/09/2017, Fluid Removed from Heart - Dr. Holman - [facility] 08/25/2017, Cardiac Stent x 1, Balloon x3 03/2019. * Hospitalization/Major Diagno stic Procedure: K idney Stones- [facility] 1998, ID & Stent placement- [facility] 07/02-, Cardiac Stent & Balloon- [facility] 03/2019, NSTEMI- [facility] 04/2019. * Family History: F ather: [...] as directed , Taking FreeStyle Wilma 2 [place] - Device as directed , Taking Aspirin [...] unspecified type - I48.92 1 2. B ID 31.0-31.9,adult - Z68.31 Plan: * Treatment: Value [...] G 2211 Complex e/[place], [address] GLYCATED HEMOGLOBIN TEST, Modifiers: QW , 3052F HG A1C>EQUAL 8.0%<EQUAL 9.0%, G8753 MOST RECENT SYSTOLIC BP >= 140MM HG, G8754 MOST RECENT DIASTOLIC BP < 90MM HG * Follow Up: 6 Months * Images: Billing Information: * Visit Code: 72880 Office Visit, Est Pt., Level 4. * Procedure Codes: G2211 Complex [place]. [address] GLYCATED HEMOGLOBIN TEST. Modifiers: QW 3052F HG A1C>EQUAL 8.0%<EQUAL 9.0%. G8753 MOST RECENT SYSTOLIC BP >= 140MM HG. G8754 MOST RECENT DIASTOLIC BP < 90MM HG. * Electronic signature of Mitra Busby MD on 06/11/2025 at 10:07 AM EDT Sign off status: Pending * Provider: Kareem Bsuby M.D. Date: 0 12/31/2024 Generated for Nas coronado/Joe/Nellaitting on: 1 10:07 AM EDT History and [...]
--- OUTSIDE RECORDS SUMMARY | 2025-04-01 07:00 | XMS_ITS ---
Author Organization [facility] Address [address] [place] [id number] Care Team Providers Care Customer Account Coordinator Name Role Phone Alejo Busby Primary Care Provider Allergies No Known Allergies Results Component Value Reference Range Notes Urinalysis - Inhouse Reviewed date:04/02/2025 10:59:08 AM Interpretation: Performing Lab: Notes/Report: Color/Clarity Yellow/Clear Leuk Neg Nitrite Neg Urobili 3.2 Protein 3+ pH 5.5 Blood 2+ Sp. Gr. 1.020 Ketone 1+ Bili Neg Gluc 2+ TEN-UTI panel Reviewed date:04/04/2025 11:37:32 AM Interpretation:Negative Performing Lab: Notes/Report: Negative REASON FOR VISIT blood in urine Medications Medication SIG (Take, Route, Frequency, Duration) Notes Start Date End Date Status FreeStyle Wilma 2 Sensor - as directed Active Synjardy XR 25-1000 MG 1 tablet with maykel akfast Orally Once a day 03/09/2023 Active Basaglar KwikPen 100 UNIT/ML 55 units Subcutaneous every day, at bedtime 09/24/2024 Active Gabapentin 300 MG 1 cap(s) orally 2 ti mes a day; Duration: 30 day(s) 02/17/2025 Active Carvedilol 25 MG 1 tab(s) orally 2 ti mes a day Active Vitamin D3 75 MCG (3000 UT) 1 tablet Orally Once a day; Duration: 30 days Active Atorvastatin Calcium 80 mg 1 tablet Oral ly Once a day; Duration: 30 days Active Clopidogrel Bisulfate 75 MG 1 tab(s) orally once a day A ctive Furosemide 40 MG 1 tab(s) orally once a day as needed Active Entresto 97-103 MG 1 tab(s) orally 2 ti mes a day Active Vitamin B-12 1000 MCG 1 tab(s) orally once a day 0 03/26/2019 Active FreeStyle Wilma 2 [place] - as directed Active ProAir Digihaler 108 (90 Base) MCG/ACT 1 or 2 puff(s) inhaled 4 times a day as needed; Duration: 25 Active Aspirin 81 81 MG 1 tablet Orally Once a day; Duration: 30 day(s) Active Vital Signs Weight 204.8 lbs 04/01/2025 Blood pressure systolic 132 mm Hg 04/01/20 25 Blood pressure diastolic 70 mm Hg 025 Heart Rate 74 /min 04/01/2025 Height 68.50 in 04/01/2025 BMI 30.68 kg/m2 04/01/2025 Encounters Encounter Location Date Provider Diagnosis [facility] [address] [facility] [address] [facility] [address] [place] [phone] 04/01/2025 Alejo Busby Gross hematuria R31. 0 Assessments Encounter Date Diagnosis (ICD Code) Assessment Notes Treatment Notes Treatment Clinical Notes Section Notes 04/01/2025 Gross hematuria (ICD-10 - R31.0) Plan Of Treatment Next Appt Details Follow Up: via phone to repo rt test results, Reason: Provider Name:Alejo Kate ry, 07/03/2025 09:00:00 AM, [address], [address], [place], [phone], Progress Notes * Krish AREVALODOB:1955 ( 69 yo M)Acc No.[id number]:04/01/2025 Progress Notes Patient: Krish CHOUDHURY Provider: Kareem Busby M.D. :1955 A ge:69 Y S ex:Male Date:04/01/2025 Address:[address], [id number] Subjective: * Chief Complaints: * 1 . Blood in urine. * HPI: M raven Reproductive: 69 year old male presents with c/o hematuria P t complains of large amount of blood in urine Sat, Sun and Mon. Pt states he has not seen any today and does not have pain anywhere. * ROS: C ARDIOLOGY: no D izziness. n o C hest pain. D ERMATOLOGY: no R or[place]. n o H yolanda. G ASTROENTEROLOGY: no N ausea. n o V omiting. * Medical History: C oronary Artery Disease, 11 stents in total as of 2023, ST elevation [place], 7 Stents, Dr. Jameson- 07/02/2017 , Congestive Heart Failure, EF 30% 06/2017, EF 40% 08/2017, Pericardial Effusion, 08/2017, Type 2 Diabetes, Hyperlipidemia, Hypertension, Neuropathy, NSTEMI, 04/21/2019, Kidney stones. * Surgical History: R T Knee, [place] 1999, Stent x5 - Dr. Jameson 07/02/2017, Stent x2 - Dr. Jameson 07/09/2017, Fluid Removed from Heart - Dr. Holman - [facility] 08/25/2017, Cardiac Stent x 1, Balloon x3 03/2019. * Hospitalization/Major Diagno stic Procedure: K idney Stones- [facility] 1998, [place] & Stent placement- [facility] 07/02-, Cardiac Stent & Balloon- [facility] 03/2019, NSTEMI- [facility] 04/2019. * Family History: F ather: , High Blood Pressure. M other: . S iblings: Sister from Cancer. 2 brother(s) , 2 sister(s) . . * Social History: C URRENT TOBACCO USE: No S moking Status: Patient does NOT smoke. C affeine: no. Exercise: no. Marital Status: . Past smoking status: no, Smoking status: Does not smoke. Alcohol: No. * Medications: T aking Synjardy XR 25-1000 MG Tablet Extended Release 24 Hour 1 tablet with breakfast Orally Once a day , Taking Carvedilol 25 MG Tablet 1 tab(s) orally 2 times a day , Taking Basaglar KwikPen 100 UNIT/ML Solution Pen-injector 55 units Subcutaneous every day, at bedtime , Taking FreeStyle Wilma 2 Sensor - Miscellaneous as directed , Taking FreeStyle Wilma 2 [place] - Device as directed , Taking Aspirin [...] once a day as needed , Taking Atorvastatin Calcium 80 mg Tablet 1 tablet Orally Once a day , Taking Vitamin D3 75 MCG (3000 UT) Tablet 1 tablet Orally Once a day , Taking Gabapentin 300 MG Capsule 1 cap(s) orally 2 times a day , Medication List reviewed and reconciled with the patient * Allergies: N .K.D.A. Objective: * Vitals: W t: 204.8, Temp: 98.1, BP: 132/70, HR: 74, Nurse: kwasi, Ht: 68.50, BMI:30.68. * Examination: G eneral Examination: General Appearance: N AD. H eart: R SR. L ungs:?clear to auscultation. B ack: n o CVA tenderness. Assessment: * Assessment: 1. G ross hematuria - R31.0 (Primary) Plan: * Treatment: Value Reference Range C olor/Clarity Yellow/Clear * L euk Neg * N itrite Neg * U robili 3.2 * P rotein 3+ * p H 5.5 * B lood 2+ * S p. Gr. 1.020 * K etone 1+ * B beth Neg * G jonnathan 2+ * Fátima Boswell 04/01/2025 10:52: 53 AM EDT > Provider reviewed results while patient in office. ?LAB: TEN-UTI panel (Collection Date & Time - 04/01/2025)?Negative* Deloris Dougherty 04/04/2025 11: 36:58 AM EDT > see TE * Procedure Codes: G 2211 Complex e/[place], [address] Urinalysis, no micro, 1036F TOBACCO NON- USER, G8783 BP SCR PRFRM RCMDD DEFIND SCR INTVL, G8752 MOST RECENT SYSTOLIC BP < 140MM HG, G8754 MOST RECENT DIASTOLIC BP < 90MM HG * Follow Up: v ia phone to report test results * Images: Billing Information: * Visit Code: 49482 Office Visit, Est Pt., Level 3. * Procedure Codes: G2211 Complex e/[place]. [address] Urinalysis, no micro. 1036F TOBACCO NON-USER. G8783 BP SCR PRFRM RCMDD DEFIND SCR INTVL. G8752 MOST RECENT SYSTOLIC BP < 140MM HG. G8754 MOST RECENT DIASTOLIC BP < 90MM HG. * Electronic signature of Mitra Busby MD on 06/10/2025 at 02:32 PM EDT Sign off status: Pending * Provider: Kareem Busby M.D. Date: 0 04/01/2025 Generated for Nas coronado/Joe/Nellaitting on: 1 02:32 PM EDT History and Physical Notes * HPI (History of Present Illness) Category Sub-Category Detail Notes Category Not es Male Reproductive hematuria Pt complains o f large amount of blood in urine Sat, Sun and Mon. Pt states he has not seen any today and does not have pain anywhere Examination Category Sub-Category Detail Notes Category Not es General Examination Heart: RSR Lungs: clear to auscultatio n General Appearance: NAD Back: no CVA tenderness
--- OUTSIDE RECORDS SUMMARY | 2025-04-01 07:00 | XMS_ITS ---
Author Organization [facility] Address [address] [place] [phone] Care Team Providers Care Food Dehydrator Operator Name Role Phone Alejo Busby Primary Care [...] day 0 03/26/2019 Active FreeStyle Wilma 2 [place] - as directed Active ProAir Digihaler 108 (90 Base) MCG/ACT 1 or 2 puff(s) inhaled 4 times a day as needed; Duration: 25 Active Aspirin 81 81 MG 1 tablet Orally Once a day; Duration: 30 day(s) Active Vital Signs Blood pressure systolic 132 mm Hg 04/01/20 25 Blood pressure diastolic 70 mm Hg 025 Heart Rate 74 /min 04/01/2025 Height 68.50 in 04/01/2025 Weight 204.8 lbs 04/01/2025 BMI 30.68 kg/m2 04/01/2025 Encounters Encounter Location Date Provider Diagnosis [facility] [address] [facility] [address] [facility] [address] [place] [phone] 04/01/2025 Alejo Busby Gross hematuria R31. 0 Assessments Encounter Date Diagnosis (ICD Code) Assessment Notes Treatment Notes Treatment Clinical Notes Section Notes 04/01/2025 Gross hematuria (ICD-10 - R31.0) Plan Of Treatment Next Appt Details Follow Up: via phone to repo rt test results, Reason: Provider Name:Alejo Kate ry, 07/03/2025 09:00:00 AM, [address], [address], [place], [phone], Progress Notes * Krish AREVALODOB:1955 ( 69 yo M)Acc No.[id number]:04/01/2025 Progress Notes Patient: Krish CHOUDHURY Provider: Kareem [...] in total as of 2023, ST elevation [place], 7 Stents, Dr. Jameson- 07/02/2017 , Congestive [...] Hospitalization/Major Diagno stic Procedure: K idney Stones- [facility] 1998, [place] & Stent placement- [facility] 07/02-, Cardiac Stent & Balloon- [facility] 03/2019, NSTEMI- [facility] 04/2019. * Family History: F ather: [...] as directed , Taking FreeStyle Wilma 2 [place] - Device as directed , Taking Aspirin [...] G 2211 Complex e/[place], [address] Urinalysis, no micro, 1036F TOBACCO NON- USER, G8783 BP SCR PRFRM RCMDD DEFIND SCR INTVL, G8752 MOST RECENT SYSTOLIC BP < 140MM HG, G8754 MOST RECENT DIASTOLIC BP < 90MM HG * Follow Up: v ia phone to report test results * Images: Billing Information: * Visit Code: 92469 Office Visit, Est Pt., Level 3. * Procedure Codes: G2211 Complex e/[place]. [address] Urinalysis, no micro. 1036F TOBACCO NON-USER. G8783 BP SCR PRFRM RCMDD DEFIND SCR INTVL. G8752 MOST RECENT SYSTOLIC BP < 140MM HG. G8754 MOST RECENT DIASTOLIC BP < 90MM HG. * Electronic signature of Mitra Busby MD on 06/11/2025 at 10:07 AM EDT Sign off status: Pending * Provider: Kareem Busby M.D. Date: 0 04/01/2025 Generated for Nas coronado/Joe/Nellaitting on: 10:07 AM [...]
[2025-06-10] VITALS (7 sets, daily range): BP systolic 149–201; BP diastolic 88–105; PULSE 63–73; RESP 11–18; TEMP 36.5–36.8; O2SAT 94–98; BMI 31.0
[2025-06-10 14:04] LABS: POC Glucose,Bedside 208 gm/dL (70-110)
--- NOTE | 2025-06-10 14:19 | CT_ITS ---
FINAL REPORT TECHNIQUE: NASCET technique utilized for stenosis evaluation. This study was performed with techniques to keep radiation doses as low as reasonably achievable, (ALARA). Individualized dose reduction techniques using automated exposure control or adjustment of mA and/or kV according to the patient's size were employed. CLINICAL HISTORY: L sided dysequilibrium FINDINGS: There are multiple median sternotomy wires. There is dense calcification of the coronary arteries. There are heterogeneous complex nodules in both lobes of the thyroid with localized macrocalcifications. RIGHT CAROTID: There is mild vascular calcification at the bifurcation without significant stenosis. LEFT CAROTID: There is mild vascular calcification at the bifurcation without significant stenosis. VERTEBRALS: The vertebral arteries are symmetric. No significant stenosis is present. IMPRESSION: No evidence of significant stenosis. Heterogeneous complex nodules in both lobes of the thyroid. Reviewed, Interpreted and Dictated by José Antonio Pedroza MD Transcribed by Darya Mcclain Authenticated and [facility]
--- NOTE | 2025-06-10 14:19 | CT_ITS ---
FINAL REPORT TECHNIQUE: Axial CT images were performed through the head. Coronal reformatted images were submitted. This study was performed with techniques to keep radiation doses as low as reasonably achievable (ALARA). Individualized dose reduction techniques using automated exposure control or adjustment of mA and/or kV according to the patient's size were employed. CLINICAL HISTORY: L sided dysequilibrium COMPARISON: None FINDINGS: There is mild age-appropriate atrophy. There are few small low-attenuation foci in the deep white matter, consistent with chronic microvascular ischemia. There is no evidence of hemorrhage. There is no mass or edema identified. There is no abnormal extra-axial fluid seen. The paranasal sinuses are well aerated. IMPRESSION: No acute intracranial process. Chronic microvascular ischemia. Reviewed, Interpreted and Dictated by José Antonio Pedroza MD Transcribed by Amnada Ricci Authenticated and [facility][1]
--- NOTE | 2025-06-10 14:19 | CT_ITS ---
FINAL REPORT TECHNIQUE: thin section axial CT with and without IV contrast supplemented with multiplanar 3-D reconstruction of the head. This study was performed with techniques to keep radiation doses as low as reasonably achievable, (ALARA)individualized dose reduction techniques using automated exposure control or adjustment of mA and/or kV according to the patient's size were employed. CLINICAL HISTORY: L sided dysequilibrium FINDINGS: The cranial circulation is unremarkable. There is no significant stenosis, aneurysm or occlusion. IMPRESSION: No aneurysm or large vessel occlusion. Reviewed, Interpreted and Dictated by José Antonio Pedroza MD Transcribed by Darya Mcclain Authenticated and . [facility]
--- NOTE | 2025-06-10 14:19 | ECG_ITS ---
APPROVED REPORT Exam: Resting ECG HR:67 bpm ECG Measurements Heart Rate 67 AXES CA 176 P 57 QRSd 148 QRS -45 QT 438 T 74 QTc 454 Conclusion SINUS RHYTHM RIGHT BUNDLE BRANCH BLOCK [120+ ms QRS DURATION, UPRIGHT V1, 40+ ms S IN I/aVL/V4/V5/V6] LEFT ANTERIOR FASCICULAR BLOCK [QRS AXIS <= -45, QR IN I, RS IN II] PROBABLE ANTERIOR MYOCARDIAL INFARCTION , PROBABLY OLD [35 ms Q WAVE IN V3/V4] ABNORMAL ECG Electronically signed by : JEANETH GILLESPIE, 06/10/2025 16:26:13
--- NOTE | 2025-06-10 14:30 | [facility].EDGENADL ---
Discharge Plan Disposition Patient Disposition: Admitted Prescriptions Prescriptions: No Action aspirin 81 mg tablet,delayed release (DR/EC) 81 mg PO DAILY atorvastatin 80 mg tablet 80 mg PO HS insulin glargine U-300 conc [Toujeo SoloStar U-300 Insulin] 300 unit/mL (1.5 mL) insulin pen 75 unit SQ HS cholecalciferol (vitamin D3) 1,250 mcg (50,000 unit) capsule 50,000 unit PO WEEKLY Patient Comments: TAKE ONE CAPSULE BY MOUTH ONCE a WEEK potassium chloride [Klor-Con M20] 20 mEq tablet,ER particles/crystals See Rx Instructions PO DAILY Qty: 90 3RF Rx Instructions: Take 2 tabs today then 1 daily thereafter orally daily; amlodipine 5 mg tablet 5 mg PO DAILY Patient Comments: TAKE ONE TABLET BY MOUTH EVERY DAY sacubitril-valsartan [Entresto] 49-51 mg tablet 1 tab PO BID Qty: 60 2RF carvedilol 25 mg tablet 25 mg PO DAILY Qty: 120 5RF nitroglycerin 0.4 mg tablet, sublingual 0.4 mg SUBLINGUAL Q5M PRN (Reason: chest pain) Qty: 25 0RF Rx Instructions: do not exceed 3 doses per episode 1 tab under tongue every 5 min up to 3 tabs per episode ezetimibe 10 mg tablet See Rx Instructions .ROUTE .COMPLEX Qty: 30 11RF Dose Instruction: TAKE ONE TABLET BY MOUTH ONCE DAILY Rx Instructions: TAKE ONE TABLET BY MOUTH ONCE DAILY furosemide 40 mg tablet See Rx Instructions PO DAILY Qty: 90 3RF Rx Instructions: one daily or as directed. clopidogrel 75 mg tablet See Rx Instructions .ROUTE .COMPLEX Qty: 90 3RF Dose Instruction: TAKE ONE TABLET BY MOUTH EVERY DAY Rx Instructions: TAKE ONE TABLET BY MOUTH EVERY DAY sacubitril-valsartan [Entresto] 49-51 mg tablet 0RF gabapentin 300 MG capsule 300 mg PO BID Patient Comments: TAKE 1 CAPSULE BY MOUTH TWICE DAILY MAY CAUSE DROWSINESS empagliflozin-metformin 1 EACH tablet, IR - ER, biphasic 24hr 2 tab PO DAILY Patient Comments: TAKE 2 TABLETS BY MOUTH EVERY DAY Referrals Follow up/Referrals: Alejo Busby MD [Primary Care Provider, Medical] - See instructions Clinical Impressions Clinical Impression: Disequilibrium Print Language Print Language: Sammarinese Discharge ED Provider: Ronny Watters General Adult HPI General Chief complaint: Neuro Symptoms/Deficit Stated complaint: Numbness, tingling, High Bp, per Cardiology Time Seen by Provider: 06/10/25 14:11 Mode of Arrival: Wheelchair Source of Information: Patient and Significant Other Description of Symptoms (Recalled from ER Triage Doc. by RN): Pt states at 0600 this morning he had trouble balancing and felt numb on his left side. Pt c/o loss of balance on entire left side. Pt is A/O, no other symptoms. History of Present Illness HPI narrative: Patient is 69-year-old male past medical history of coronary artery disease status post stenting x 10, hypertension, insulin-dependent diabetes obstructive sleep apnea presents emergency department for evaluation of disequilibrium. Onset was acute, last known normal was 10 PM last night when he went to bed normal. When he awoke at 6 AM this morning to walk to the bathroom he had a broad-based staggering gait with left-sided disequilibrium of his arm and leg. No speech difficulty no vision changes reported no chest pain no abdominal pain no other acute complaints at this time. No trauma. Please note that above description of symptoms, in this electronic medical record under categorization of recalled from ER triage doctor by RN are reflective of an initial nursing assessment, however, is not reflective of my full history and physical exam that was personally taken and clarified. Consequentially, this preceding description of symptoms, which may include the patient's categorized chief complaint in the EMR, do not reflect my personal clinical impression, and the ultimate description of history of present illness and patient stated complaints should be deferred to this section of the note. Unless stated otherwise or congruent with this section of the note, additional signs, symptoms, or incongruence should be interpreted as inaccurate with my clinical impression. Related Data Home Medications ?Medication ?Instructions ?Recorded ?Confirmed aspirin 81 mg tablet,delayed 81 mg PO DAILY heart health 08/15/17 06/10/25 release atorvastatin 80 mg tablet 80 mg PO HS hyperlipidemia 08/15/17 06/10/25 insulin glargine U-300 conc 300 75 unit SQ HS Diabetes 08/15/17 06/10/25 unit/mL (1.5 mL) subcutaneous pen (Toujeo SoloStar U-300 Insulin) empagliflozin 12.5 mg-metformin ER 2 tab PO DAILY Diabetes 04/09/19 06/10/25 1,000 mg tablet,extended rel 24 hr gabapentin 300 mg capsule 300 mg PO BID Pain 04/09/19 06/10/25 cholecalciferol (vitamin D3) 1,250 50,000 unit PO WEEKLY 11/09/22 06/10/25 mcg (50,000 unit) capsule amlodipine 5 mg tablet 5 mg PO DAILY 10/29/24 06/10/25 Previous Rx's ?Medication ?Instructions ?Recorded nitroglycerin 0.4 mg sublingual 0.4 mg sublingual Q5M PRN chest 06/05/23 tablet pain #25 tabs ezetimibe 10 mg tablet See Rx Instructions .Route 09/16/24 .COMPLEX #30 tabs carvedilol 25 mg tablet 25 mg PO DAILY #120 tabs 09/23/24 sacubitril 49 mg-valsartan 51 mg 1 tab PO BID #60 tabs 09/23/24 tablet (Entresto) potassium chloride 20 mEq See Rx Instructions PO DAILY #90 10/08/24 tablet,extended tabs release(part/cryst) (Klor-Con M) furosemide 40 mg tablet See Rx Instructions PO DAILY #90 11/05/24 tabs clopidogrel 75 mg tablet See Rx Instructions .Route 05/08/25 .COMPLEX #90 tabs Allergies Allergy/AdvReac Type Severity Reaction Status Date / Time No Known Allergies Allergy Verified 06/10/25 13:36 [facility] Disclaimer: The information contained in this section may have been updated after the patient was seen, as this information can be updated by other users. Medical History (Updated 06/10/25 @ 16:23 by Ronny Watters MD) Malignant hypertension Left sided numbness Abnormal stress test Coronary artery disease Thyroid nodule Hypothyroidism Thyroid nodule, cold Non-ST elevation [place] (NSTEMI) Elevated troponin HHD (hypertensive heart disease) Diabetes Surgical History S/P CABG x 2 Social History Smoking Status: Never smoker second hand exposure: No alcohol intake: never counseling provided: none substance use type: denies use current occupational status: employed Travel in the last 8 weeks?: Inside the [place] household members: spouse housing: house current occupational exposures/hazards: No caffeine: No Have you lived/traveled outside [place] in past 30 days?: No Contact w/someone who lives/traveled outside [place] past 30 days?: No Exposure to someone with infectious disease in past 14 days?: No Do you have a fever (greater than 100.4 F or 38 C)?: No Have you tested positive for COVID-19?: No Exposed to someone with COVID-19 in past 14 days?: No Do you have a sore throat?: No Do you have a cough?: No Do you have any weakness?: No Do you have any diarrhea?: No Are you experiencing any unusual bleeding?: No Do you have any muscle aches/pain?: No Do you have any abdominal pain?: No Are you experiencing loss of taste or smell?: No Other Medical History Have you received the Flu Vaccine for this season: Yes Have you received the Pneumonia Vaccine: Yes ROS Obtained: Yes Systems reviewed as appropriate & no additional complaints except as documented Physical Exam General General appearance: alert and in no apparent distress Head Head exam: atraumatic and normocephalic Eye Eye exam: Present PERRL and EOMI ENT ENT exam: Present mucous membranes moist Neck Neck exam: Present normal inspection Chest Chest inspection: Present normal inspection and symmetric chest wall rise Respiratory Respiratory exam: Present normal lung sounds bilaterally; Absent respiratory distress Cardiovascular Cardiovascular exam: Present regular rate and normal rhythm Abdominal Exam Abdominal exam: Present soft; Absent tenderness Extremities Exam Extremities exam: Present normal inspection Neurological Exam Neurological exam: Present alert, oriented X3 and CN II-XII intact; Absent normal gait (Wide-based gait, difficulty with turns, difficulty carrying left lower extremity forward.) Psychiatric Psychiatric exam: Present normal affect Skin Skin exam: Present warm and dry Medical Decision Making Medical Records Screening: Per USPSTF and CDC recommendations, given the prevalence of disease in our region, it is our hospital?s policy to screen for HIV and viral Hepatitis for all patients aged 18 and over and those with ongoing risk factors. Maxi Inquiry Pt receiving controlled substance: No Vital Signs: 06/10/25 13:58 06/10/25 15:58 Temperature 97.7 F Temperature Source Temporal Artery Scan Pulse Rate 63 Pulse Rate [Right] 71 Respiratory Rate 18 11 L Blood Pressure 149/88 H Blood Pressure [Right Arm] 201/105 H Blood Pressure Mean [Right Arm] 137 Blood Pressure Source [Right Arm] Automatic Cuff Blood Pressure Position [Right Arm] Sitting 02 Sat by Pulse Oximetry 98 94 L Oxygen Delivery Method Room Air Room Air Lab Data Lab Results 06/10/25 13:58: POC Glucose 208 H 06/10/25 14:25: WBC 7.2, RBC 5.18, Hgb 16.3, Hct 47.8, MCV 92.3, MCH 31.5 H, MCHC 34.1, RDW 13.7, Plt Count 200, MPV 10.7 H, Neut % (Auto) 63.5, Lymph % (Auto) 20.9, [place] % (Auto) 9.5 H, Eos % (Auto) 5.1, Baso % (Auto) 0.6, Neut # (Auto) 4.6, Lymph # (Auto) 1.5, [place] # (Auto) 0.7, Eos # (Auto) 0.4, Baso # (Auto) 0.0, PT 10.4, INR 0.93, APTT 25.6, Sodium 133 L, Potassium 4.0, Chloride 104, Carbon Dioxide 24, Anion Gap 9.0, BUN 15, Creatinine 0.80, Estimated Creat Clear 89, Estimated GFR 95, Est GFR ( Amer) 115, Glucose 224 H, Calcium 8.2 L, Total Bilirubin 0.4, AST 27, ALT 25, Alkaline Phosphatase 100, Troponin I < 0.01, Total Protein 6.1 L, Albumin 2.7 L, Globulin 3.4 H, Albumin/Globulin Ratio 0.8 L, Triglycerides 126, Cholesterol 131 L, LDL Cholesterol Direct 56.24 L, VLDL Cholesterol 25, HDL Cholesterol 48, Cholesterol/HDL Ratio 2.7, Plasma/Serum Alcohol < 10 06/10/25 14:51: Urine Color Yellow, Urine Appearance Clear, Urine pH 6.0, Ur Specific [place] 1.025, Urine Protein 3+ A, Urine Glucose (UA) 3+, Urine Ketones Negative, Urine Blood 1+ A, Urine Nitrate Negative, Urine Bilirubin Negative, Urine Urobilinogen 0.2, Ur Leukocyte Esterase Negative, Urine RBC Occasional, Urine WBC None, Ur Squamous Epith Cells None, Urine Bacteria Trace 06/10/25 14:53: Urine Opiates Screen Negative, Urine Methadone Screen Negative, Ur Barbituates Screen Negative, Ur Phencyclidine Scrn Negative, Ur Amphetamines Screen Negative, U Benzodiazepines Scrn Negative, Urine Cocaine Screen Negative, U Marijuana (THC) Screen Negative 06/10/25 14:25 06/10/25 14:25 Orders (Tests/Meds): ED MEDICATIONS Generic Name Dose Route Start Last Admin Trade Name Freq PRN Reason Stop Dose Admin Sodium Chloride 10 ml 06/10/25 14:19 Sodium Chloride 0.9% 10ml Flush Syringe IV 07/10/25 14:18 NEEDED PRN Maintain IV Site Discontinued Medications Generic Name Dose Route Start Last Admin Trade Name Freq PRN Reason Stop Dose Admin Iopamidol 80 ml 06/10/25 14:58 06/10/25 14:59 Iopamidol-370 (76%);100ml Bottle IV 06/10/25 14:59 80 ml ONCE ONE Administration Sodium Chloride 40 ml 06/10/25 14:58 06/10/25 15:00 0.9 % Sodium Chloride 50 Ml Vial IV 06/10/25 14:59 40 ml ONCE ONE Administration Sodium Chloride 10 ml 06/10/25 14:58 06/10/25 14:59 Sodium Chloride 0.9% 10ml Syr (Rad Only) IV 06/10/25 14:59 10 ml ONCE ONE Administration ORDERS Category Date Time Status CT angio head Stat Cat Scan 06/10/25 14:[address] angio neck Stat Cat Scan 06/10/25 14:[address] head/brain wo con Stat Cat Scan 06/10/25 14:19 Completed Activated Partial Thrombo Time Stat Lab 06/10/25 14:25 Completed Complete Blood Count Auto Diff Stat Lab 06/10/25 14:25 Completed Comprehensive Metabolic Panel Stat Lab 06/10/25 14:25 Completed Drug Screen,Urine Stat Lab 06/10/25 14:53 Completed Ethyl Alcohol Stat Lab 06/10/25 14:25 Completed Lipid Panel Stat Lab 06/10/25 14:25 Completed POC Glucose,Bedside Routine Lab 06/10/25 13:58 Completed Prothrombin Time INR Stat Lab 06/10/25 14:25 Completed Troponin I Q3H Lab 06/10/25 17:30 Ordered Troponin I Q3H Lab 06/10/25 20:30 Ordered Troponin I Stat Lab 06/10/25 14:25 Completed Urinalysis and Microscopic Stat Lab 06/10/25 14:51 Completed ECG Data Tracing #1: Independently interpreted by me rate of 67, rhythm is regular, axis is leftward deviated, no ST elevation in anatomical contiguous leads, right bundle branch block, QTc 454. Medical Decision Narrative: In summary patient is a 69-year-old male with past medical history described above presents emergency department for evaluation of disequilibrium. Patient is hemodynamically stable nontoxic-appearing upon arrival, afebrile. Patient is well outside the intervention window for tPA for stroke given his last known normal was 10 PM last night. Patient undergo stroke protocol with noncontrasted CT scan of the head CTA of the head and neck, EKG and hematologic labs will be obtained. Noncontrasted CT scan informally visualized by me no acute intracranial hemorrhage or midline shift. Formal read shows no acute pathology no critical stenosis or large vessel occlusion. Given this patient has acute disequilibrium and would benefit from MRI for evaluation of the posterior fossa. The case discussed with hospital medicine regarding management they admit the patient and their service for continued evaluation at this time. Critical Care Critical Care Time Critical Care Time: No
--- OUTSIDE RECORDS SUMMARY | 2025-06-10 14:31 | XMS_ITS | Patient Health Record ---
Author Organization [facility] Address [address] [place] [id number] Care Team Providers Care Automobile Tester Name Role Phone [email or web address] Primary Care Provider Allergies No Known Allergies Results Component Value Reference Range Notes Influenza Screen (in house) Reviewed date:09/16/2024 12:21:52 PM Interpretation: Performing Lab: Notes/Report: results Pos A Glycohemoglobin A1c (in hous e) Reviewed date:12/31/2024 12:14:56 PM Interpretation: Performing Lab: Notes/Report: glycohemoglobin 8.1% 5 - 6.5 % P-Comprehensive Metabolic Pa lety (CMP) Reviewed date:01/01/2025 01:01:34 PM Interpretation:gluc 195, prot 5.9 Performing Lab: Notes/Report: Test performed by [facility] , [address], [place] [address] Phoenix Montgomery MD, Tool Grinder Set Up Operator Gear CLIA: [id number] Sodium 140 135-145 mmol/L Potassium 4.6 3.5-5.3 [...] Interpretation:25.3 Performing Lab: Notes/Report: Test performed by [facility] [address] [place] [address] , [place] [address] Phoenix Montgomery MD, Tool Grinder Set Up Operator Gear CLIA: [id number] Vitamin D 25-Hydroxy 25.3 30.0-100.0 ng/mL Interpretation of Vitamin D 25 OH: < 20 ng/mL - Deficiency 20 - 29 ng/mL - Insufficiency 30 - 100 ng/mL - Sufficiency > 100 ng/mL - Super-therapeutic- toxicity may occur above this level. Clinical correlation required. Urinalysis - Inhouse Reviewed date:04/02/2025 10:59:08 AM Interpretation: Performing Lab: Notes/Report: Color/Clarity Yellow/Clear Leuk Neg Nitrite Neg Urobili 3.2 Protein 3+ pH 5.5 Blood 2+ Sp. Gr. 1.020 Ketone 1+ Bili Neg Gluc 2+ TEN-UTI panel Reviewed date:04/04/2025 11:37:32 AM Interpretation:Negative Performing Lab: Notes/Report: Negative P-Microalbumin/Creatinine, R andom Urine Sample Reviewed date:07/03/2024 09:15:58 AM Interpretation:a/c 1180 Performing Lab: Notes/Report: Test performed by [facility] [address] [place] [address] , [place] [address] Phoenix Montgomery MD, Tool Grinder Set Up Operator Gear CLIA: [id number] Albumin/Creatinine Ratio, Urine 1180 0-30 ug/mg Microalbumin, Urine, Random 28.2 Creatinine, Urine 23.9 P-TSH reflex to FT4 Reviewed date:07/03/2024 09:15:58 AM Interpretation:Normal Performing Lab: Notes/Report: Test performed by [facility] [address] [place] [address] , [place] [address] Phoenix Montgomery MD, Tool Grinder Set Up Operator Gear CLIA: [id number] TSH reflex to FT4 1.81 0.43-5.25 mU/L Glycohemoglobin A1c (in hous e) Reviewed date:07/03/2024 09:15:58 AM Interpretation:8.3 Performing Lab: Notes/Report: 8.3 glycohemoglobin 8.3% 5 - 6.5 % Glucose (In-House) Reviewed date:07/02/2024 09:44:14 PM Interpretation:205 Performing Lab: Notes/Report: 205 blood glucose 205 74 - 106 mg/dL Reason For Referral No Information Medications Medication SIG (Take, Route, Frequency, Duration) Notes Start Date End Date Status Vitamin D3 75 MCG (3000 UT) 1 tablet Orally Once a day; Duration: 30 days Active Clopidogrel Bisulfate 75 MG 1 tab(s) orally once a day A ctive Vitamin B-12 1000 MCG 1 tab(s) orally once a day 0 03/26/2019 Active Furosemide 40 MG 1 tab(s) orally once a day as needed Active Entresto 97-103 MG 1 tab(s) orally 2 ti mes a day Active FreeStyle Wilma 2 Anderson - as directed Active FreeStyle Wilma 2 Sensor - as directed Active ProAir Digihaler 108 (90 Base) MCG/ACT 1 or 2 puff(s) inhaled 4 times a day as needed; Duration: 25 Active Aspirin 81 81 MG 1 tablet Orally Once a day; Duration: 30 day(s) Active Synjardy XR 25-1000 MG 1 tablet with maykel akfast Orally Once a day 03/09/2023 Active Basaglar KwikPen 100 UNIT/ML 55 units Subcutaneous every day, at bedtime 09/24/2024 Active Gabapentin 300 MG 1 cap(s) orally 2 ti mes a day; Duration: 30 day(s) 02/17/2025 Active Atorvastatin Calcium 80 mg 1 tablet Oral ly Once a day; Duration: 30 days Active Carvedilol 25 MG 1 tab(s) orally 2 ti mes a day Active Immunizations Vaccine Route Administration Date Status Comme nts Prevnar (PCV20) Unknown 07/12/2022 Pending Prevnar (PCV13) IM Intramuscular 06/01/2021 Administered Hepatitis A (adult) IM Intramuscular 08/01/2018 Administer ed Hepatitis A (adult) IM Intramuscular 02/06/2019 Administer ed Fluzone Quad (6months&older) IM Intramuscular 05/29/2018 Administered Fluzone High Dose (65yr and older) IM Intramuscular 06/04/2019 Administered Fluzone High Dose (65yr and older) Unknown 05/08/2020 Pending Fluzone High Dose (65yr and older) IM Intramuscular 06/01/2021 Administered Fluzone High Dose (65yr and older) IM Intramuscular 06/14/2022 Administered Fluzone High Dose (65yr and older) IM Intramuscular 06/05/2023 Administered Fluzone High Dose (65yr and older) IM Intramuscular 07/02/2024 Administered COVID 19 Moderna Unknown 10/01/2020 Administered COVID 19 Moderna Unknown 10/29/2020 Administered COVID 19 Moderna Unknown 07/14/2021 Administered Problems Problem Type SNOMED Code ICD Code Onset Dates Problem Status W/U Status Risk Notes Problem Peripheral circulatory disorder associated with diabetes mellitus (285026416) Type 2 diabetes mellitus with other circulatory complications (E11.59) Active confirmed Problem Vitamin D deficiency (24329666) Vitamin D deficiency (E55.9) Active confirmed Problem Essential hypertension (06359261) Essential hypertension (I10) Active confirmed Problem Hypoglycemia (468499584) Hypoglycemia (E16.2) Active confirmed Problem Acute non-ST segment elevation myocardial infarction (659757324) NSTEMI (non-ST elevated myocardial infarction) (I21.4) Active confirmed Problem Hypertensive heart failure (75873228) Hypertensive heart disease with heart failure (I11.0) Active confirmed Problem Cholelithiasis without obstruction (03247869) Calculus of gallbladder without cholecystitis without obstruction (K80.20) Active confirmed Problem Type II diabetes mellitus without complication (572930060) Type 2 diabetes mellitus without complication (E11.9) Active confirmed Problem Obesity (076140437) Non morbid obesity due to excess calories (E66.09) Active confirmed Problem Atherosclerotic heart disease of cherokee coronary artery without angina pectoris (185956839803687) Coronary artery disease involving cherokee coronary artery of cherokee heart without angina pectoris (I25.10) Active confirmed Problem Atrial fibrillation (15127972) Atrial fibrillation, unspecified type (I48.91) Active confirmed Problem Hyperlipidaemia (92517154) Hyperlipidemia, unspecified hyperlipidemia type (E78.5) Active confirmed Problem Body mass index 30.00 to 34.99 (690124617270499) BMI 31.0-31.9,adult (Z68.31) Active confirmed Problem Heart failure (96354996) Congestive heart failure, unspecified congestive heart failure chronicity, unspecified congestive heart failure type (I50.9) Active confirmed Problem Atrial flutter (8500320) Atrial flutter, unspecified type (I48.92) Active confirmed Problem Hypoglycemia due to type 2 diabetes mellitus (272321915997036) Hypoglycemia associated with type 2 diabetes mellitus (E11.649) Active confirmed Problem Heart failure (98067379) Heart failure, unspecified HF chronicity, unspecified heart failure type (I50.9) Active confirmed Problem Diabetic peripheral neuropathy associated with type 2 diabetes mellitus (8904102387079) Type 2 diabetes mellitus with diabetic neuropathy, without long-term current use of insulin (E11.40) Active confirmed Vital Signs Heart Rate 74 /min 04/01/2025 Blood pressure diastolic 70 mm Hg 04/01/2025 Height 68.50 in 04/01/2025 Blood pressure systolic 132 mm Hg 04/01/2025 Weight 204.8 lbs 04/01/2025 BMI 30.68 kg/m2 04/01/2025 Encounters Encounter Location Date Provider Diagnosis [facility] [address] [place], [place] [id number] 07/02/2024 Alejo Raymond Type 2 diabetes kaushal itus without complication E11.9 ; Hyperlipidemia, unspecified hyperlipidemia type E78.5 ; Essential hypertension I10 and Encounter for immunization Z23 [facility] [address] [place], [place] [id number] 09/16/2024 Alejo Raymond Influenza A J10.1 [facility] [address] [facility] [address] [place], [place] [id number] 12/31/2024 Alejo Raymond Type 2 diabetes kaushal itus without complication [...] unspecified type I48.92 and BMI 31.0-31.9,adult Z68.31 [facility] [address] [place], [place] [id number] 04/01/2025 Alejo Raymond Gross hematuria R31. 0 [facility] [address] [place], [place] [id number] 07/03/2024 Alejo Raymond [facility] [address] [place], [place] [id number] 08/05/2024 Alejo Raymond [facility] [address] [place], [place] [id number] 09/24/2024 Alejo Raymond Type 2 diabetes kaushal itus without complication E11.9 [facility] [address] [place], [place] [id number] 01/01/2025 Alejo Raymond [facility] [address] [place], [place] [id number] 02/17/2025 Alejo Raymond [facility] [address] [place], [place] [id number] 03/18/2025 Alejo Raymond [facility] [address] [place], [place] [id number] 04/04/2025 Alejo Raymond [facility] [address] [place], [place] [id number] 04/17/2025 Alejo Raymond Assessments Encounter Date Diagnosis (ICD Code) Assessment Notes Treatment Notes Treatment Clinical Notes Section Notes 07/02/2024 Type 2 diabetes mellitus without complication (ICD-10 - E11.9) 07/02/2024 Hyperlipidemia, unspecified hyperlipidemia type (ICD-10 - E78.5) 09/16/2024 Influenza A (ICD-10 - J10.1) 09/24/2024 Type 2 diabetes mellitus without complication (ICD-10 - E11.9) 12/31/2024 Essential hypertension (ICD-10 - I10) 12/31/2024 Type 2 diabetes mellitus without complication (ICD-10 - E11.9) 04/01/2025 Gross hematuria (ICD-10 - R31.0) 12/31/2024 Hyperlipidemia, unspecified hyperlipidemia type (ICD-10 - E78.5) 07/02/2024 Essential hypertension (ICD-10 - I10) 07/02/2024 Encounter for immunization (ICD-10 - Z23) 12/31/2024 Vitamin D deficiency (ICD-10 - E55.9) [...] 31.0-31.9,adult (ICD-10 - Z68.31) Plan Of Treatment Next Appt Details Provider Name:Alejo Kate ry, 07/03/2025 09:00:00 AM, [address] [facility], [address], [place], [place], [id number], Insurance Providers Payer Name Payer Address Payer Phone Subscriber Number Group Number Insured Name Patient Relationship to Insured Coverage Start Date Coverage End Date MEDICARE PART B P [place] [id number] [place] [id number] [id number] Krish Montes Self - [place] [address] [id number] Krish Montes Self - patient is the insured Medical (General) History Medical History History ICD Code Coronary Artery Disease, 11 stents in to [place] as of 2023 ST elevation [place], 7 Stents, Dr. Jameson- 07/02/2017 Congestive Heart Failure, EF 30% 06/2017 , EF 40% 08/2017 Pericardial Effusion, 08/2017 Type 2 Diabetes Hyperlipidemia Hypertension neuropathy NSTEMI, 04/21/2019 kidney stones Surgical History Surgery Date(Month/Year) RT Knee, [place] 1999 Stent x5 - Dr. Jameson 07/02/2017 Stent x2 - Dr. Jameson 07/09/2017 Fluid Removed from Heart - Dr. Holman - [facility] 08/25/2017 Cardiac Stent x 1, Balloon x3 03/2019 Hospitalization History Reason Date(Month/Year) NSTEMI- [facility] 04/2019 Cardiac Stent & Balloon- [facility] 03/2019 OK & Stent placement- [facility] Kidney Stones- [facility] 1998
--- OUTSIDE RECORDS SUMMARY | 2025-06-10 14:31 | XMS_ITS | Clinical Summary ---
Author Organization [facility] Address [address] [place] [address] Care Team Providers Care Museum Guide Name Role Phone Alejo Busby MD Primary Care Provider + [phone] David Jameson MD Unavailable [phone] Allergies No known active allergies Medications aspirin 81 MG EC tablet Take 1 tablet (81 mg) by mouth daily. Active atorvastatin (Lipitor) 80 MG tablet Take 1 tablet (80 mg) by mouth nightly. Active clopidogrel (Plavix) 75 MG tablet Take 1 tablet (75 mg) by mouth daily. Active empagliflozin- metFORMIN ER (Synjardy XR) 12.5-1000 MG 24 hr tablet Take 2 tablets by mouth daily with breakfast. Active ezetimibe (Zetia) 10 MG tablet Take 1 tablet (10 mg) by mouth daily. Active gabapentin (Neurontin) 300 MG capsule Take 1 capsule (300 mg) by mouth 2 (two) times a day. Active cholecalcifero l (Vitamin D-3) 25 MCG (1000 UT) tablet Take 1 tablet (1,000 Units) by mouth daily. Active acetaminophen (Tylenol) 325 MG tablet Take 2 tablets (650 mg) by mouth every 6 (six) hours if needed for pain, headaches or fever. Under [place] law, monthly prescriptions (30 days) can be refilled at 25 days and three-month prescriptions (90 days) at 80 days. Please contact the insurance company with questions if refills are denied. 100 tablet 4 Active carvedilol (Coreg) 12.5 MG tablet Take 1 tablet (12.5 mg) by mouth 2 (two) times a day. 60 tablet 3 4 Active Insulin Glargine, 2 Unit Dial, (Toujeo Max SoloStar) 300 UNIT/ML injection pen Inject 60 Units under the skin every night. 4 Active furosemide (Lasix) 40 MG tablet Take 1 tablet (40 mg) by mouth 1 (one) time each day. 30 tablet 11 5 08/22/19 26 Active potassium chloride CR (Klor-Con M20) 20 MEQ ER tablet Take 1 tablet (20 mEq) by mouth 1 (one) time each day. Do not crush or chew. 30 tablet 11 5 08/22/19 26 Active Active Problems Problem Noted Date Diagnosed Date Obesity (BMI 30-39.9) 10/17/2024 Coronary artery disease invo lving [place] heart, unspecified vessel or lesion type, unspecified whether angina present 07/24/2024 Type 2 diabetes mellitus, wi thout long-term current use of insulin 07/24/2024 Overview (07/27/2024): Lab Results Component Value Date HGBA1C 8.4 (H) 06/27/2024 - On insulin drip currently - Uses insulin at home - Endocrine following High cholesterol 07/24/2024 Overview (07/25/2024): - Start Atorvastatin 80mg S/P CABG (coronary artery bypass graft) 07/24/20 24 Overview (07/27/2024): S/p 2v CABG with Dr. Chaudhary on 07/24 - Diuresis BID - Continue Coreg 12.5 BID Pain 07/24/2024 Overview (07/24/2024): - [facility] Hypertension 07/24/2024 Overview (07/27/2024): - Resume home meds as appropriate - 07/26: cleveprex drip off. Increased coreg to 12.5, continue procardia, started low dose Entresto - 07/27: Continue Coreg 12.5 BID, Continue procardia, continue Entresto Coronary artery disease involving [place] heart 1 08/27/2023 Overview (07/25/2024): - Hx of stents CX and OM 2018; Cx/OM, LAD, diag 2017 - 07/24/2024 s/p 2vCABG with Dr. Chaudhary Resolved Problems Problem Noted Date Diagnosed Date Resolved Date Atrial fib/flutter, transient 07/27/2024 07/30/2024 Overview (07/27/2024): 07/26: A-Fib into the 120s. Metoprolol x3, Replenished Mag, 150 Amio bolus given 07/27: Converted over night. Went back into A-Fib this afternoon HR 120-140s. Asymptomatic. Metoprolol given. Requires supplemental oxygen 07/25/2024 07/27/2024 Overview (07/26/2024): - Wean NC as able SpO2 goal >92% On mechanically assisted ventilation 07/24/2024 07/30/2024 Overview (07/24/2024): - Wean vent as appropriate BMI 32.0-32.9,adult 06/27/2024 10/18/19 25 Overview (07/25/2024): Complicates all aspects of care Immunizations Immunization Administration Dates Next Due Influenza, seasonal, injectable 07/02/2024 Family History Medical History Relation Name Comments Anesthesia problems Neg Hx Malig Hyperthermia Neg Hx Social History Tobacco Use Types Packs/Day Years Used Date Smoking Tobacco: Former Cigars Smokeless Tobacco: Never Tobacco Cessation:Counseling Given: Not Answered Alcohol Use Standard Drinks/Week Comments Never 0 (1 standard drink = 0.6 oz pur e alcohol) Humiliation, Afraid, Rape, and Kick questionnair e Answer Date Recorded Within the last year, have y ou been afraid of your partner or ex-partner? No 07/25/2024 Within the last year, have y ou been humiliated or emotionally abused in other ways by your partner or ex-partner? No Within the last year, have y ou been kicked, hit, slapped, or otherwise physically hurt by your partner or ex-partner? No 07/25/2024 Within the last year, have y ou been raped or forced to have any kind of sexual activity by your partner or ex-partner? No 07/25/2024 Hunger Vital Sign Answer Date Recorded Within the past 12 months, y ou worried that your food would run out before you got the money to buy more. Never true 07/25/20 24 Within the past 12 months, t he food you bought just didn't last and you didn't have money to get more. Never true 07/25/2024 PRAPARE - Transportation Answer Date Re corded In the past 12 months, has l ack of transportation kept you from medical appointments or from getting medications? No 07/14 In the past 12 months, has l ack of transportation kept you from meetings, work, or from getting things needed for daily living? No 07/25/2024 Housing Stability Vital Sign Answer Tony e Recorded In the last 12 months, was t here a time when you were not able to pay the mortgage or rent on time? No 07/25/2024 Number of Times Moved in the Last Year Not on fi le 07/25/2024 At any time in the past 12 m [facility], were you homeless or living in a chcf (including now)? No 07/25/2024 Utilities Answer Date Recorded In the past 12 months has th e electric, gas, oil, or water company threatened to shut off services in your home? No 07/25/2024 Sex and Gender Information Value Date Recorded Sex Assigned at Not on file Legal Sex Male 6:45 PM EDT Gender Identity Not on file Sexual Orientation Not on file Occupation Industry Job Start Date Job End Date retired Not on file Not on file Not on file Last Filed Vital Signs Vital Sign Reading Time Taken Comments Blood Pressure 131/78 10/17/2024 9:34 AM EST Pulse 70 10/17/2024 9:30 AM EST Temperature 36.4 C (97.6 F) 07/30/2024 11:25 AM EST Respiratory Rate 16 07/30/2024 11:2 5 AM EST Oxygen Saturation 96% 10/17/2024 9:30 AM EST Inhaled Oxygen Concentration - - Weight 96.1 kg (211 lb 13.8 oz) 10/17/2024 9:30 AM EST Height 170.2 cm (5' 7 ) 10/17/2024 9:30 AM EST Body Mass Index 33.18 10/17/2024 9:30 AM EST Plan of Treatment Health Maintenance Due Date Last Done Comments [facility]-Depression Screening 1955 [facility]-Hepatitis C Screening 1955 [facility]-Medicare Annual Wellness (AWV) 1955 [facility]-/Child/Adol SDOH Screenings 1955 Diabetes: Dental Exam 11/06/1963 [facility]-DTaP,Tdap,and Td Vaccines (1 - Tdap) 1972 [facility]-Pneumococcal Vaccine: 50+ Years (1 of 2 - PCV) 1972 CT Colonography 1998 Colonoscopy 1998 FIT-DNA 1998 FIT 1998 FOBT 1998 Sigmoidoscopy 1998 [facility]-Colorectal Cancer Screening 1998 [facility]-Zoster Vaccines (1 of 2) 11/06/2003 [facility]-RSV Vaccine: 60+ Years or (1 - Risk 60-74 years 1-dose series) 2013 [facility]-Abdominal Aortic Aneurysm (AAA) Screening 2018 [facility]-Diabetes: Hemoglobin A1C 09/26/2024 06/27/2024 [facility]- SDOH Screenings 01/23/2025 [facility]-Adult SDOH Screenings 01/23/2025 07/25/2024 [id number] Vaccine ( season) 2025 06/14/2022, 07/14/2021, 10/29/2020, Additional history exists [facility]-Influenza Vaccine (#1) 2025 07/02/2024 [facility]-Obesity Intervention Completed 025, 09/05/2024, 08/22/2024, Additional history exists HPV Vaccines Aged Out No longer eligi ble based on patient's age to complete this topic [facility]-HIB Vaccines Aged Out No longer e ligible based on patient's age to complete this topic [facility]-Hepatitis A Vaccines Aged Out No longer eligible based on patient's age to complete this topic [facility]-IPV Vaccines Aged Out No longer e ligible based on patient's age to complete this topic [facility]-Rotavirus Vaccines Aged Out No lo nger eligible based on patient's age to complete this topic Procedures Procedure Name Priority Date/Time Associated Diagnosis Comments HEMOGLOBIN A1C Routine 06/27/2024 11:55 AM EST Coronary artery disease involving [place] heart, unspecified vessel or lesion type, unspecified whether angina present Diabetes mellitus due to underlying condition with hyperglycemia, without long-term current use of insulin ([facility]) from Last 3 Months or Most Recently Relevant to Health Maintenance Results * (ABNORMAL) Hemoglobin A1c (06/27/2024 11:55 AM EST) Hemoglobin A1c 8.4(H) <5.7 % 06/27/2024 2:20 PM EST [facility] Blood Venous blood specimen / Unknown Venipuncture / Unknown 06/27/2024 11:55 AM EST 06/27/2024 11:56 AM EST Narrative [facility] - 06/27/2024 2:20 PM EST HA1C Interpretive Data: Diagnosis of Diabetes: Diabetic > or = 6.5% Pre-diabetic 5.7 to 6.4% Non-diabetic < or = 5.6% Glycemic Targets for Type I and Type II Diabetics: Non- Adults <7.0% Adults <6.0% Children and Adolescents <7.5% Source: [place] [employer]. Standards of medical care in diabetes,2017. Diabetes Care.2017:40 (suppl 1):S1-S135. HbA1c assay performed by an ion-exchange chromatography method that is certified traceable to the DCCT. us [facility] BLOOD ORDERABLES Final R esult [facility] [address] [place] [address] from Last 3 Months or Most Recently Relevant to Health Maintenance Insurance MEDICARE Member Subscriber Plan / Payer (Ef fective 2018-Present) Name:Krish Montes Member ID:[id number] Relation to Subscriber:Self Name:Krish Montes Subscriber ID:[id number] Payer ID:MEDICARE Group ID:Not on file Type:Medicare Address: [place] [phone] [facility] Advance Directives * Full Code (Latest Code Status on File) Date Activated Date Inactivated Comments 07/24/2024 5:39 PM 07/30/2024 4:02 PM Question Answer Comments Patient has decision-making capacity? Yes Care Teams Museum Guide Relationship Specialty Start Date End Date Alejo Busby MD [facility] [address] [address] PCP - General 12/25/20 David Jameson MD [address] [address] Referring Physician 06/28/24
[2025-06-10 14:33] LABS: Hematocrit 47.8 % (42.0-52.0); Hemoglobin 16.3 g/dL (14.1-18.0); Immature Granulocytes % 0.4 %; Mean Corpuscular HGB Conc 34.1 g/dL (31.8-35.4); Mean Corpuscular Hemoglobin 31.5 pg (27.0-31.2); Mean Corpuscular Volume 92.3 fl (80-94); Nucleated Red Blood Cells % 0 %; Platelet Count 200 K/mm3 (142-424); Red Blood Count 5.18 M/mm3 (4.60-6.20); Red Cell Distribution Width-SD 46.7 fL; White Blood Count 7.2 K/mm3 (4.8-10.8)
[2025-06-10 14:40] LABS: Albumin Level 2.7 g/dl (3.5-5.0); Chloride 104 mmol/L (98-107); Sodium 133 mmol/L (136-145)
[2025-06-10 14:41] LABS: Potassium 4.0 mmoL/L (3.5-5.1)
[2025-06-10 14:43] LABS: Alanine Aminotransferase 25 U/L (12-78); Albumin/Globulin Ratio 0.8 (1.1-1.8); Alkaline Phosphatase 100 U/L (38-126); Anion Gap 9.0 mEq/L (5-15); Aspartate Amino Transferase 27 U/L (17-59); Bilirubin,Total 0.4 mg/dl (0.2-1.3); Blood Urea Nitrogen 15 mg/dl (9-20); Calcium 8.2 mg/dl (8.4-10.2); Carbon Dioxide 24 mmol/L (22.0-30.0); Cholesterol 131 mg/dl (140-200); Creatinine Clearance Estimated 89 mL/min (50-200); Creatinine,Serum 0.80 mg/dl (0.66-1.25); Estimated Glomerular Filt Rate 95 ml/min (>60); GFR (African American) 115 ML/MIN (>60); Globulin 3.4 g/dL (1.3-3.2); Glucose 224 mg/dl (74-100); Total Protein,Serum 6.1 g/dl (6.3-8.2); Triglycerides 126 mg/dl (30-150)
[2025-06-10 14:44] LABS: HDL Cholesterol 48 mg/dl (40-60)
[2025-06-10 14:45] LABS: Activated Partial Thrombo Time 25.6 seconds (22.8-30.6); INR 0.93 (0.9-1.1); Prothrombin Time 10.4 seconds (10.1-12.5)
[2025-06-10 14:55] LABS: Microscopic, Urine URINE MICROSCOPIC (MICROSCOPIC)
[2025-06-10 14:56] LABS: Bilirubin,Urine Negative (Negative); Color,Urine YELLOW (Yellow); Glucose,Urine (UA) 3+ (Negative); Ketones,Urine Negative (Negative); Leukocyte Esterase,Urine Negative (Negative); PH,Urine 6.0 (5.0-8.5); Protein,Urine 3+ (Negative); Specific Gravity, Urine 1.025 (1.005-1.030); Urobilinogen,Urine 0.2 EU/dl (0.2)
[2025-06-10] MEDS: SODIUM CHLORIDE 0.9% 10ML SYR (RAD ONLY) 10 ML IV (14:59)
[2025-06-10] MEDS: IOPAMIDOL-370 (76%);100ML BOTTLE 80 ML IV (14:59)
[2025-06-10] MEDS: 0.9 % SODIUM CHLORIDE 50 ML VIAL 40 ML IV (15:00)
[2025-06-10 15:08] LABS: Troponin I < 0.01 ng/ml (0.00-0.034)
[2025-06-10 15:22] LABS: Bacteria,Urine Trace /lpf; RBC,Urine Occasional #/hpf (0-3)
[2025-06-10 15:27] LABS: Amphetamine/Metha Screen,Urine Negative ng/ml (<1000)
[2025-06-10 15:28] LABS: Barbiturates Screen,Urine Negative ng/ml (<200)
[2025-06-10 15:29] LABS: Benzodiazepines Screen,Urine Negative ng/ml (<200)
[2025-06-10 15:30] LABS: Methadone Screen,Urine Negative ng/ml (<300)
[2025-06-10 15:31] LABS: Opiate Screen,Urine Negative ng/ml (<300)
[2025-06-10 15:32] LABS: Phencyclidine Screen,Urine Negative ng/ml (<25)
--- NOTE | 2025-06-10 16:20 | PC.NURSE ---
Attempted to call Dr. Busby office. Spoke with office staff, they stated that Dr. Busby is not in and that we would need to call hospitalist for admission. Inquired about another doctor call or contact centre operator for Dr. Busby. She said Dr. Wilson is, but that for admission of a patient, that we would need to call hospitalist. Dr. Gilman informed.
--- NOTE | 2025-06-10 16:23 | PC.NURSE ---
job training supervisor contacted for bed.
--- NOTE | 2025-06-10 16:26 | MR_ITS ---
PROCEDURE INFORMATION: Exam: MR Head Without Contrast Exam date and time: 06/10/2025 4:46 PM Age: 69 years old Clinical indication: Stroke-like symptoms; Other: Left sided weakness; Additional info: Sarahe diseqilibrium TECHNIQUE: Imaging protocol: Magnetic resonance imaging of the head without contrast. COMPARISON: CT ANGIO HEAD 06/10/2025 2:58 PM FINDINGS: Brain: 0.4 x 0.4 cm focus of restricted diffusion seen in the right parietal lobe. 1.4 x 0.6 cm area of restricted diffusion in the posterior aspect of the right ram radiata. There is age-appropriate cerebral atrophy. Mild changes of chronic small vessel ischemia within the cerebral white matter regions bilaterally. No acute hemorrhage. No mass or midline shift. Cerebral ventricles: Normal. No ventriculomegaly. Bones: Unremarkable. Paranasal sinuses: Normal as visualized. No acute sinusitis. Mastoid air cells: Normal as visualized. No mastoid effusion. Orbital cavities: Unremarkable. Soft tissues: Unremarkable. IMPRESSION: 0.4 x 0.4 cm acute infarct in the right parietal lobe and 1.4 x 0.6 cm acute infarct in the right centrum semiovale.
--- NOTE | 2025-06-10 16:44 | PC.NURSE ---
report called to edwige on second floor, while on the phone giving report, MRI called and stated that they would be able to perform MRI tonight. tech is going to transport pt to MRI to get scan.
--- NOTE | 2025-06-10 16:55 | EXP.HP ---
History of Present Illness *Admission Date: 06/10/25 *Reason for visit:: Left lower extremity weakness *History of present illness: Krish Montes is a 69-year-old male with a medical history significant for CABG in July 2024, hypertension, type 2 diabetes, HFrEF who presented to the ED due to concern of left lower extremity weakness and difficulty walking. Patient states he noticed this when he woke up at 5 AM this morning and unable to walk with steady gait. He states his last known normal was at 10 PM the night previous. No other focal deficits. No previous history of known CVA. Patient denies any trauma, low back pain, red flag symptoms. No recent medication changes, has been adherent to his medications including aspirin. Workup in the ED significant for CT head, CTA head and neck unremarkable for acute findings. CBC, CMP relatively unremarkable. Given these findings, ED provider discussed case with me and I decided to admit patient for acute CVA workup. [facility] Disclaimer: The information contained in this section may have been updated after the patient was seen, as this information can be updated by other users. Medical History (Updated 06/10/25 @ 21:49 by Sergo Wright MD) Malignant hypertension Left sided numbness Abnormal stress test Coronary artery disease Thyroid nodule Hypothyroidism Thyroid nodule, cold Non-ST elevation [place] (NSTEMI) Elevated troponin HHD (hypertensive heart disease) Diabetes Surgical History S/P CABG x 2 Social History (Updated 06/10/25 @ 19:23 by Ivelisse Boone RN) Smoking Status: Never smoker second hand exposure: No alcohol intake: never counseling provided: none substance use type: denies use current occupational status: employed Travel in the last 8 weeks?: Inside the [place] household members: spouse housing: house current occupational exposures/hazards: No caffeine: No Have you lived/traveled outside [place] in past 30 days?: No Contact w/someone who lives/traveled outside US past 30 days?: No Exposure to someone with infectious disease in past 14 days?: No Do you have a fever (greater than 100.4 F or 38 C)?: No Have you tested positive for COVID-19?: No Exposed to someone with COVID-19 in past 14 days?: No Do you have a sore throat?: No Do you have a cough?: No Do you have any weakness?: No Do you have any diarrhea?: No Are you experiencing any unusual bleeding?: No Do you have any muscle aches/pain?: No Do you have any abdominal pain?: No Are you experiencing loss of taste or smell?: No Other Medical History Have you received the Flu Vaccine for this season: Yes Have you received the Pneumonia Vaccine: Yes Meds Home Medications and Allergies Home Medications ?Medication ?Instructions ?Recorded ?Confirmed ?Type aspirin 81 mg tablet,delayed 81 mg PO DAILY heart health 08/15/17 06/10/25 History release atorvastatin 80 mg tablet 80 mg PO HS hyperlipidemia 08/15/17 06/10/25 History insulin glargine U-300 conc 300 75 unit SQ HS Diabetes 08/15/17 06/10/25 History unit/mL (1.5 mL) subcutaneous pen (Toujeo SoloStar U-300 Insulin) empagliflozin 12.5 mg-metformin ER 2 tab PO DAILY Diabetes 04/09/19 06/10/25 History 1,000 mg tablet,extended rel 24 hr gabapentin 300 mg capsule 300 mg PO BID Pain 04/09/19 06/10/25 History cholecalciferol (vitamin D3) 1,250 50,000 unit PO WEEKLY 11/09/22 06/10/25 History mcg (50,000 unit) capsule nitroglycerin 0.4 mg sublingual 0.4 mg sublingual Q5M PRN chest 06/05/23 06/10/25 Rx tablet pain #25 tabs ezetimibe 10 mg tablet See Rx Instructions .Route 09/16/24 06/10/25 Rx .COMPLEX #30 tabs carvedilol 25 mg tablet 25 mg PO DAILY #120 tabs 09/23/24 06/10/25 Rx sacubitril 49 mg-valsartan 51 mg 1 tab PO BID #60 tabs 09/23/24 06/10/25 Rx tablet (Entresto) potassium chloride 20 mEq See Rx Instructions PO DAILY #90 10/08/24 06/10/25 Rx tablet,extended tabs release(part/cryst) (Klor-Con M) amlodipine 5 mg tablet 5 mg PO DAILY 10/29/24 06/10/25 History furosemide 40 mg tablet See Rx Instructions PO DAILY #90 11/05/24 06/10/25 Rx tabs clopidogrel 75 mg tablet See Rx Instructions .Route 05/08/25 06/10/25 Rx .COMPLEX #90 tabs New Prescriptions to Start Prescriptions: Allergies Allergy/AdvReac Type Severity Reaction Status Date / Time No Known Allergies Allergy Verified 06/10/25 13:36 Exam Data for Last 24 hours Vital signs and Labs for Last 24 Hours: Temp Pulse Resp BP Pulse Ox O2 Del Method 97.7 F 63 11 L 149/88 H 94 L Room Air 06/10/25 13:58 06/10/25 15:58 06/10/25 15:58 06/10/25 15:58 06/10/25 15:58 06/10/25 15:58 Laboratory Results - last 24 hr 06/10/25 13:58: POC Glucose 208 H 06/10/25 14:25: WBC 7.2, RBC 5.18, Hgb 16.3, Hct 47.8, MCV 92.3, MCH 31.5 H, MCHC 34.1, RDW 13.7, Plt Count 200, MPV 10.7 H, Neut % (Auto) 63.5, Lymph % (Auto) 20.9, Antelope % (Auto) 9.5 H, Eos % (Auto) 5.1, Baso % (Auto) 0.6, Neut # (Auto) 4.6, Lymph # (Auto) 1.5, Antelope # (Auto) 0.7, Eos # (Auto) 0.4, Baso # (Auto) 0.0, PT 10.4, INR 0.93, APTT 25.6, Sodium 133 L, Potassium 4.0, Chloride 104, Carbon Dioxide 24, Anion Gap 9.0, BUN 15, Creatinine 0.80, Estimated Creat Clear 89, Estimated GFR 95, Est GFR ( Amer) 115, Glucose 224 H, Calcium 8.2 L, Total Bilirubin 0.4, AST 27, ALT 25, Alkaline Phosphatase 100, Troponin I < 0.01, Total Protein 6.1 L, Albumin 2.7 L, Globulin 3.4 H, Albumin/Globulin Ratio 0.8 L, Triglycerides 126, Cholesterol 131 L, LDL Cholesterol Direct 56.24 L, VLDL Cholesterol 25, HDL Cholesterol 48, Cholesterol/HDL Ratio 2.7, Plasma/Serum Alcohol < 10 06/10/25 14:51: Urine Color Yellow, Urine Appearance Clear, Urine pH 6.0, Ur Specific Leiter 1.025, Urine Protein 3+ A, Urine Glucose (UA) 3+, Urine Ketones Negative, Urine Blood 1+ A, Urine Nitrate Negative, Urine Bilirubin Negative, Urine Urobilinogen 0.2, Ur Leukocyte Esterase Negative, Urine RBC Occasional, Urine WBC None, Ur Squamous Epith Cells None, Urine Bacteria Trace 06/10/25 14:53: Urine Opiates Screen Negative, Urine Methadone Screen Negative, Ur Barbituates Screen Negative, Ur Phencyclidine Scrn Negative, Ur Amphetamines Screen Negative, U Benzodiazepines Scrn Negative, Urine Cocaine Screen Negative, U Marijuana (THC) Screen Negative I & O for Last 24 hours: Intake & Output 06/07/25 06/08/25 06/09/25 06/10/25 23:59 23:59 23:59 23:59 Weight 92.533 kg Constitutional Constitutional: no acute distress and obese *Routine HEENT Exam Head: Present normocephalic Eye: Present EOMI and PERRL ENT: Present mucous membranes moist *Routine Neck Exam Neck: Present supple; Absent lymphadenopathy *Routine Respiratory Exam Respiratory: Present CTA bilaterally *Routine Cardiovascular Exam Cardiovascular: Present RRR *Routine Abdominal Exam Abdominal: Present soft and normoactive bowel sounds; Absent tenderness *Routine Rectal Exam Rectal:: deferred *Routine Genitalia Exam Genitalia:: deferred *Routine Extremities Exam Extremities: Absent cyanosis, clubbing or edema *Routine Skin Exam Skin: Present warm; Absent rash *Routine Neurological Exam Neurological: Present alert and oriented X3 Comments: Left lower extremity 4/5 strength. Assessment and Plan *Assessment and plan (1) CVA (cerebral vascular accident): Status: Acute Category: Medical Code(s): I63.9 - Cerebral infarction, unspecified (2) Left leg weakness: Status: Acute Category: Medical Code(s): R29.898 - Other symptoms and signs involving the musculoskeletal system Nickolas Montes is a 69-year-old male with a medical history significant for CABG in July 2024, hypertension, type 2 diabetes, HFrEF who presented to the ED due to concern of left lower extremity weakness and difficulty walking. Patient states he noticed this when he woke up at 5 AM this morning and unable to walk with steady gait. He states his last known normal was at 10 PM the night previous. Patient denies any trauma, low back pain, red flag symptoms. No recent medication changes, has been adherent to his medications including aspirin. Workup in the ED significant for CT head, CTA head and neck unremarkable for acute findings. CBC, CMP relatively unremarkable. Given these findings, ED provider discussed case with me and I decided to admit patient for acute CVA workup. #Acute multifocal CVA #Left lower extremity weakness ? Presented with left lower extremity weakness, brain MRI on 06/10/2025 revealed 0.4 x 0.4 cm acute infarct in the right parietal lobe and 1.4 x 0.6 cm acute infarct in the right centrum semiovale . NIHSS score 1. Multifocal CVA concerning for embolic source, especially A-fib. ? CTA head/neck did not show LVO or other acute findings. No previous known history of CVA. ? Risk factors include diabetes, hypertension, known ASCVD/CABG. ? Started aspirin 81 mg, Plavix 75 mg, atorvastatin 40 mg given NIHSS score. DAPT for 21 days pending outpatient neurology recommendations. ? Allow permissive hypertension until 5 AM on 06/11/2025, goal < 220/120. IV labetalol 10 mg as needed. ? Follow-up hemoglobin A1c, lipid panel, TSH. ? Follow-up ECHO with bubble study. ? Follow-up bedside swallow evaluation. ? Follow-up PT/OT recommendations. ? Continuous cardiac telemetry to assess for arrhythmias. #History of CABG 2023 ? Continue home aspirin, statin. Resume other medications once reconciled. #Hypertension ? Permissive hypertension as above. Resume home medications once appropriate. #Type 2 diabetes ? Hemoglobin A1c 8.2%. Above goal for patient's age. ? LDSSI, ACHS glucose checks. #Chronic HFrEF ? ECHO 10/08/2024 LVEF 35%. Currently euvolemic. ? Follow-up repeat ECHO as above. ? Resume home medications once appropriate and reconciled. #Thyroid nodules ? CTA neck reveals heterogeneous thyroid nodules. ? Follow-up TSH, thyroid ultrasound. Full code DVT prophylaxis: Lovenox 40 mg
--- NOTE | 2025-06-10 17:27 | PC.NURSE ---
arrived by w/c from MRI
[2025-06-10] MEDS: CLOPIDOGREL 75MG TAB 75 MG PO (18:09)
[2025-06-10] MEDS: DOXYCYCLINE HYCLATE 100 MG in 0.9 % SODIUM CHLORIDE 250 ML 166.67 MG IV (18:09)
[2025-06-10] MEDS: ASPIRIN EC 81MG TABLET 81 MG PO (18:34)
[2025-06-10 18:49] LABS: Troponin I < 0.01 ng/ml (0.00-0.034)
--- NOTE | 2025-06-10 18:57 | PC.NURSE ---
Pt. can't recall all his medications. States family will bring them in the am.
[2025-06-10 19:21] LABS: Thyroid Stimulating Hormone 2.08 uIU/mL (0.465-4.68)
[2025-06-10 19:41] LABS: Hemoglobin A1C 8.2 % (4.0-6.0)
[2025-06-10 20:15] LABS: POC Glucose,Bedside 184 gm/dL (70-110)
[2025-06-10] MEDS: ATORVASTATIN 40MG TABLET 40 MG PO (20:18)
[2025-06-10] MEDS: humaLOG 100 UNITS/ML 10ML VIAL (SSI) SUBCUT (20:18)
[2025-06-10 21:30] LABS: Troponin I < 0.01 ng/ml (0.00-0.034)
[2025-06-11] VITALS: BP 155/85; PULSE 61; PULSE 80; RESP 18; TEMP 37; O2SAT 98
[2025-06-11 04:00] VITALS: BP 163/93; PULSE 65; PULSE 71; RESP 16; TEMP 36.8; O2SAT 96; BMI 30.9
--- NOTE | 2025-06-11 06:00 | US_ITS ---
FINAL REPORT CLINICAL HISTORY: Heterogenous thyroid nodules seen on CT FINDINGS: Limited sonographic images of the thyroid were obtained. The right lobe of the thyroid measures 4.4 x 2.2 x 1.8 cm. The left lobe of the thyroid measures 4.6 x 1.6 x 2.1 cm. There is a dominant nodule in the right lobe of the thyroid measuring 1.5 x 1.1 cm. It is complex and taller than wide. There is localized dystrophic calcification of the left lobe. IMPRESSION: TR 5 lesion of the right lobe. Recommend ultrasound-guided biopsy. Reviewed, Interpreted and Dictated by José Antonio Pedroza MD Transcribed by Darya Mcclain Authenticated and . [facility]
--- NOTE | 2025-06-11 06:00 | CA_ITS ---
APPROVED REPORT EXAM: Comprehensive 2D, Doppler, and color-flow Echocardiogram Truck Driver Helper: Bee Mendez, RCS, RVS Ht: 5 ft 7 in Wt: 198lbs BSA: 2.01 BP: 149/88 mmHg Indications: CAD-CAbg, Previos echo-09/2024=35%EF, Dizziness, CVA 2D Dimensions Left Atrium 4.75 cm M: 3.0 - 4.0 LA Volume 94.20 mL LA Volume Index 46.523026 mL/m2 (M/F) 16-34 M-Mode Dimensions RVDd 3.28 cm (0.9-2.6) LA Diam 4.62 cm (1.9-4.0) LVDd 6.00 cm (3.5-5.7) LVDs 4.62 cm (3.5-5.7) IVSd 1.40 cm (0.6-1.1) PWd 1.49 cm (0.6-1.1) EF (Teich) 45.40% EPSs 1.61 cm FS 23.00% EDV (Teich) 180.00 mL TAPSE 1.21 (<1.7) ESV (Teich) 98.30 mL LV Diastology E Decel Time 217 (160-240 msec) E/A Ratio 0.81 MED A' 10.80 cm/s LAT A' 11.10 cm/s Aortic Valve CHIQUI Index 1.29 cm2/m2 AoV Peak Shola. 102.0 (50-130 cm/s) AI PHT 624.00 ms AO Peak GR. 4.10 mmHg AO Mean GR. 2.50 (<5 mmHg) AO VTI 24.0 (18-25 cm) CHIQUI (VTI) 2.65 (2.5-4.5 cm2) Mitral Valve MV A Velocity 80.0 (40-130 cm/s) E/A Ratio 0.81 Pulmonary Valve PV Peak Velocity 82.0 (50-150 cm/s) Left Ventricle The left ventricle is normal size. Left ventricular systolic function is mildly to moderately reduced. There is increased left ventricular wall thickness. There is mild to moderate global hypokinesis. Transmitral Doppler flow pattern suggests impaired LV relaxation. LVEF is 40%. Right Ventricle The right ventricle is mildly dilated. The right ventricular systolic function is mildly reduced. Atria The left atrium is mildly dilated. The right atrium is mildly dilated. There is no color Doppler evidence of interatrial shunt. Aortic Valve The aortic valve is mildly thickened. There is no hemodynamically significant aortic valvular stenosis. Mild aortic regurgitation is present. Mitral Valve The mitral valve is normal in structure. No evidence of mitral valve stenosis. Mild mitral regurgitation is present. Tricuspid Valve The tricuspid valve leaflets are thin and pliable. Trace tricuspid regurgitation. There is insufficient TR jet to estimate RVSP. Pulmonic Valve The pulmonary valve is grossly normal in structure. Trace pulmonic valve regurgitation is present. Great Vessels The aortic root is normal in size. IVC is normal in size and collapses >50% with inspiration. Pericardium There is no pericardial effusion. Other Information Study Quality: Fair Conclusion Mild to moderate reduction in LV systolic function (LVEF 40%). Mild RV dilation with mild reduction in RV function. Mild biatrial dilation. Mild AI, mild MR. Electronically signed by : Salma Garcia MD 06/11/2025 12:56:02
[2025-06-11 06:17] LABS: Hematocrit 46.6 % (42.0-52.0); Hemoglobin 15.7 g/dL (14.1-18.0); Immature Granulocytes % 0.6 %; Mean Corpuscular HGB Conc 33.7 g/dL (31.8-35.4); Mean Corpuscular Hemoglobin 31.3 pg (27.0-31.2); Mean Corpuscular Volume 92.8 fl (80-94); Nucleated Red Blood Cells % 0 %; Platelet Count 189 K/mm3 (142-424); Red Blood Count 5.02 M/mm3 (4.60-6.20); Red Cell Distribution Width-SD 47.0 fL; White Blood Count 7.0 K/mm3 (4.8-10.8)
[2025-06-11 06:24] LABS: Alanine Aminotransferase 17 U/L (12-78); Albumin Level 2.7 g/dl (3.5-5.0); Albumin/Globulin Ratio 0.8 (1.1-1.8); Aspartate Amino Transferase 27 U/L (17-59); Blood Urea Nitrogen 15 mg/dl (9-20); Carbon Dioxide 26 mmol/L (22.0-30.0); Chloride 105 mmol/L (98-107); Creatinine Clearance Estimated 86 mL/min (50-200); Creatinine,Serum 0.80 mg/dl (0.66-1.25); Estimated Glomerular Filt Rate 95 ml/min (>60); GFR (African American) 115 ML/MIN (>60); Globulin 3.2 g/dL (1.3-3.2); Magnesium 1.9 mg/dl (1.6-2.3); Total Protein,Serum 5.9 g/dl (6.3-8.2)
[2025-06-11 06:24] LABS: POC Glucose,Bedside 118 gm/dL (70-110)
[2025-06-11 06:25] LABS: Alkaline Phosphatase 81 U/L (38-126); Anion Gap 8.8 mEq/L (5-15); Bilirubin,Total 0.6 mg/dl (0.2-1.3); Calcium 8.1 mg/dl (8.4-10.2); Glucose 132 mg/dl (74-100); Potassium 3.8 mmoL/L (3.5-5.1); Sodium 136 mmol/L (136-145)
[2025-06-11 06:59] LABS: Cholesterol 115 mg/dl (140-200); HDL Cholesterol 42 mg/dl (40-60); Triglycerides 74 mg/dl (30-150)
[2025-06-11 07:31] LABS: Thyroid Stimulating Hormone 2.36 uIU/mL (0.465-4.68)
[2025-06-11 08:00] VITALS: BP 170/90; PULSE 60; PULSE 71; RESP 18; TEMP 36.7; O2SAT 97
--- NOTE | 2025-06-11 08:00 | HMH.PHAINT1 ---
Pharmacy Intervention Comments: MEDICATION RECONCILIATION COMPLETED ON PATIENT USING EXTERNAL FILL HISTORY FROM PHARMACY AND LIST FROM CARDIOLOGY OFFICE. -MONET LOPEZ, FELIXD
--- NOTE | 2025-06-11 09:14 | SW/DCPLANNER ---
Per PT no needs at this time.
[2025-06-11] MEDS: ASPIRIN EC 81MG TABLET 81 MG PO (09:16)
[2025-06-11] MEDS: CLOPIDOGREL 75MG TAB 75 MG PO (09:17)
--- NOTE | 2025-06-11 09:50 | HMH.PTEV ---
Physical Therapy Evaluation Rehab PT IP Evaluation Start: 06/10/25 21:47 Freq: ONCE Status: Active Protocol: Document 06/11/25 09:36 BRITTNEY (Rec: 06/11/25 09:49 BRITTNEY [id number]) Subjective/History History History Per H&P: Krish Montes is a 69-year-old male with a medical history significant for CABG in July 2024, hypertension, type 2 diabetes, HFrEF who presented to the ED due to concern of left lower extremity weakness and difficulty walking. Patient states he noticed this when he woke up at 5 AM this morning and unable to walk with steady gait. He states his last known normal was at 10 PM the night previous. No other focal deficits. No previous history of known CVA. Patient denies any trauma, low back pain, red flag symptoms. No recent medication changes, has been adherent to his medications including aspirin. Workup in the ED significant for CT head, CTA head and neck unremarkable for acute findings. CBC, CMP relatively unremarkable. Given these findings, ED provider discussed case with me and I decided to admit patient for acute CVA workup . Subjective Subjective Pt reports he is normally IND with all mobility without AD use at baseline. Pt lives in a SS home without steps. Pt still drives. Pt lives with his . New diagnosis of No cancer in past 12 months? [facility] How much help from another person do you currently need... Turning from your None back to your side while in a flat bed without using bedrails? Moving from lying on None back to sitting on the side of a flat bed without using bedrails? Moving to and from a None bed to a chair ( including a wheelchair)? Standing up from a None chair using your arms? (e.g., wheelchair, bedside chair) Walking in hospital None room? Climbing 3-5 steps None with a railing? Mobility Score 24 Mobility Level [facility] Mobility Walk 250 feet or more Mobility Calculator Rehab PT IP Eval Objective Appearance Patient Behavior Appropriate,Cooperative Patient Orientation Person Difficulty following none instructions Speech Pattern Clear Ambulation Patient Able to Yes Ambulate Ambulation Observation IP General Gait No Deviations/Normal Pattern Observation Ambulation Distance 30 (feet) Ambulation Assistive None Device Ambulation Ability Independent Balance Ability to Arise Able, uses arms to help Sitting Balance Steady, safe Standing Balance Narrow stance w/o support Dynamic Sitting Good Balance Ability Dynamic Standing Good Balance Ability Transfers Bed Transfer Ability Independent Sit to Stand Bed Independent Transfer Ability Rehab PT IP prob,goals,plan Problems Date of Evaluation: 06/11/25 Rehab Potential Rehab Potential Innapropriate for Skilled Therapy Discharge Plan PT Discharge Plan Pt most appropriate to d/c home when deemed medically necessary d/t current level of mobility, home set-up, and family support. Pt not appropriate for skilled acute care PT at this time d/t pt?s mobility being at baseline/IND. Eval Complexity Eval Charge Codes 37359 - Moderate Complexity PHYSICIAN CERTIFICATION: I certify the specified therapy services for Krish Montes are required, authorized, and reviewed every 30 days.
--- OUTSIDE RECORDS SUMMARY | 2025-06-11 10:07 | XMS_ITS | Patient Health Record ---
Author Organization [facility] Address [address] [place] [id number] Care Team Providers Care Creative Services Producer Name Role Phone [email or web address] Primary Care Provider [...] 5.9 Performing Lab: Notes/Report: Test performed by [facility] , [address], [place] [address] Phoenix Montgomery MD, Shaping Machine Operator CLIA: [id number] Sodium 140 135-145 mmol/L Potassium 4.6 3.5-5.3 [...] Interpretation:25.3 Performing Lab: Notes/Report: Test performed by [facility] [address] [place] [address] , [place] [address] Phoenix Montgomery MD, Shaping Machine Operator CLIA: [id number] Vitamin D 25-Hydroxy 25.3 30.0-100.0 ng/mL Interpretation of Vitamin D 25 OH: < 20 ng/mL - Deficiency 20 - 29 ng/mL - Insufficiency 30 - 100 ng/mL - Sufficiency > 100 ng/mL - Super-therapeutic- toxicity may occur above this level. Clinical correlation required. Glucose (In-House) Reviewed date:07/02/2024 09:44:14 PM Interpretation:205 Performing Lab: Notes/Report: 205 blood glucose 205 74 - 106 mg/dL Glycohemoglobin A1c (in hous e) Reviewed date:07/03/2024 09:15:58 AM Interpretation:8.3 Performing Lab: Notes/Report: 8.3 glycohemoglobin 8.3% 5 - 6.5 % P-TSH reflex to FT4 Reviewed date:07/03/2024 09:15:58 AM Interpretation:Normal Performing Lab: Notes/Report: Test performed by [facility] [address] [place] [address] , [place] [id number] Phoenix Montgomery MD, Shaping Machine Operator CLIA: [id number] TSH reflex to FT4 1.81 0.43-5.25 mU/L P-Microalbumin/Creatinine, R andom Urine Sample Reviewed date:07/03/2024 09:15:58 AM Interpretation:a/c 1180 Performing Lab: Notes/Report: Test performed by [facility] [address] , [address], [place] [address] Phoenix Montgomery MD, Shaping Machine Operator CLIA: [id number] Albumin/Creatinine Ratio, Urine 1180 0-30 ug/mg Microalbumin, Urine, Random 28.2 Creatinine, Urine 23.9 Urinalysis - Inhouse Reviewed date:04/02/2025 10:59:08 AM Interpretation: Performing Lab: Notes/Report: Color/Clarity Yellow/Clear Leuk Neg Nitrite Neg Urobili 3.2 Protein 3+ pH 5.5 Blood 2+ Sp. Gr. 1.020 Ketone 1+ Bili Neg Gluc 2+ TEN-UTI panel Reviewed date:04/04/2025 11:37:32 AM Interpretation:Negative Performing Lab: Notes/Report: Negative Reason For Referral No Information Medications Medication [...] mes a day Active FreeStyle Wilma 2 [place] - as directed Active FreeStyle Wilma 2 [...] Vaccine Route Administration Date Status Comme nts COVID 19 Moderna Unknown 10/01/2020 Administered COVID 19 Moderna Unknown 10/29/2020 Administered COVID 19 Moderna Unknown 07/14/2021 Administered Fluzone High Dose (65yr and older) IM Intramuscular 06/04/2019 Administered Fluzone High Dose (65yr and older) Unknown 05/08/2020 Pending Fluzone High Dose (65yr and older) IM Intramuscular 06/01/2021 Administered Fluzone High Dose (65yr and older) IM Intramuscular 06/14/2022 Administered Fluzone High Dose (65yr and older) IM Intramuscular 06/05/2023 Administered Fluzone High Dose (65yr and older) IM Intramuscular 07/02/2024 Administered Fluzone Quad (6months&older) IM Intramuscular 05/29/2018 Administered Hepatitis A (adult) IM Intramuscular 08/01/2018 Administer ed Hepatitis A (adult) IM Intramuscular 02/06/2019 Administer ed Prevnar (PCV13) IM Intramuscular 06/01/2021 Administered Prevnar (PCV20) Unknown 07/12/2022 Pending Problems Problem Type SNOMED Code ICD Code Onset Dates Problem Status W/U Status Risk Notes Problem Peripheral circulatory disorder associated with diabetes mellitus (022996531) Type 2 diabetes mellitus with other circulatory complications (E11.59) Active confirmed Problem Vitamin D deficiency (51524254) Vitamin D deficiency (E55.9) Active confirmed Problem Essential hypertension (68129720) Essential hypertension (I10) Active confirmed Problem Hypoglycemia (202681910) Hypoglycemia (E16.2) Active confirmed Problem Acute non-ST segment elevation myocardial infarction (401796256) NSTEMI (non-ST elevated myocardial infarction) (I21.4) Active confirmed Problem Hypertensive heart failure (40117310) Hypertensive heart disease with heart failure (I11.0) Active confirmed Problem Cholelithiasis without obstruction (67790887) Calculus of gallbladder without cholecystitis without obstruction (K80.20) Active confirmed Problem Type II diabetes mellitus without complication (849332680) Type 2 diabetes mellitus without complication (E11.9) Active confirmed Problem Obesity (481727002) Non morbid obesity due to excess calories (E66.09) Active confirmed Problem Atherosclerotic heart disease of [place] coronary artery without angina pectoris (258473851197628) Coronary artery disease involving [place] coronary artery of [place] heart without angina pectoris (I25.10) Active confirmed Problem Atrial fibrillation (67229806) Atrial fibrillation, unspecified type (I48.91) Active confirmed Problem Hyperlipidaemia (58072943) Hyperlipidemia, unspecified hyperlipidemia type (E78.5) Active confirmed Problem Body mass index 30.00 to 34.99 (372783990672744) BMI 31.0-31.9,adult (Z68.31) Active confirmed Problem Heart failure (16714798) Congestive heart failure, unspecified congestive heart failure chronicity, unspecified congestive heart failure type (I50.9) Active confirmed Problem Atrial flutter (1092868) Atrial flutter, unspecified type (I48.92) Active confirmed Problem Hypoglycemia due to type 2 diabetes mellitus (287012884363391) Hypoglycemia associated with type 2 diabetes mellitus (E11.649) Active confirmed Problem Heart failure (37990031) Heart failure, unspecified HF chronicity, unspecified heart failure type (I50.9) Active confirmed Problem Diabetic peripheral neuropathy associated with type 2 diabetes mellitus (7226590970999) Type 2 diabetes mellitus with diabetic neuropathy, without long-term current use of insulin (E11.40) Active confirmed Vital Signs Heart Rate 74 /min 04/01/2025 Blood pressure diastolic 70 mm Hg 04/01/2025 Height 68.50 in 04/01/2025 Blood pressure systolic 132 mm Hg 04/01/2025 Weight 204.8 lbs 04/01/2025 BMI 30.68 kg/m2 04/01/2025 Encounters Encounter Location Date Provider Diagnosis [facility] [address] [place], [place] [id number] 07/02/2024 Alejo Magnolia Type 2 diabetes kaus[place] itus without complication E11.9 ; Hyperlipidemia, unspecified hyperlipidemia type E78.5 ; Essential hypertension I10 and Encounter for immunization Z23 [facility] [address] [place], [place] [id number] 09/16/2024 Alejo Magnolia Influenza A J10.1 [facility] [address] [facility] [address] [place], [place] [id number] 12/31/2024 Alejo Magnolia Type 2 diabetes [place] itus without complication [...] unspecified type I48.92 and BMI 31.0-31.9,adult Z68.31 [facility] [address] [place], [place] [id number] 04/01/2025 Alejo Magnolia Gross hematuria R31. 0 [facility] [address] [place], [place] [id number] 07/03/2024 Alejo Magnolia [facility] [address] [place], [place] [id number] 08/05/2024 Alejo Magnolia [facility] [address] [place], [place] [id number] 09/24/2024 Alejo Magnolia Type 2 diabetes [place] itus without complication E11.9 [facility] [address] [place], [place] [id number] 01/01/2025 Alejo Magnolia [facility] [address] [place], [place] [id number] 02/17/2025 Alejo Magnolia [facility] [address] [place], [place] [id number] 03/18/2025 Alejo Magnolia [facility] [address] [place], [place] [id number] 04/04/2025 Alejo Magnolia [facility] [address] [place], [place] [id number] 04/17/2025 Alejo Magnolia Assessments Encounter Date Diagnosis (ICD Code) Assessment [...] 07/03/2025 09:00:00 AM, [address] [facility], [address], [place], [place], [id number], Insurance Providers Payer Name Payer Address Payer Phone Subscriber Number Group Number Insured Name Patient Relationship to Insured Coverage Start Date Coverage End Date MEDICARE PART B P [place] [id number] [place] [id number] Krish Montes Self - patient is the [place] [id number] Krish Montes Self - patient is the insured Medical (General) History Medical History History ICD Code Coronary Artery Disease, 11 stents in to [place] as of 2023 ST elevation ID, 7 Stents, Dr. Jameson- 07/02/2017 Congestive Heart Failure, EF 30% 06/2017 , EF 40% 08/2017 Pericardial Effusion, 08/2017 Type 2 Diabetes Hyperlipidemia Hypertension neuropathy NSTEMI, 04/21/2019 kidney stones Surgical History Surgery Date(Month/Year) RT Knee, [place] 1999 Stent x5 - Dr. Jameson 07/02/2017 Stent x2 - Dr. Jameson 07/09/2017 Fluid Removed from Heart - Dr. Holman - [facility] 08/25/2017 Cardiac Stent x 1, Balloon x3 03/2019 Hospitalization History Reason Date(Month/Year) NSTEMI- [facility] 04/2019 Cardiac Stent & Balloon- [facility] 03/2019 ID & Stent placement- [facility] Kidney Stones- [facility] 1998
--- OUTSIDE RECORDS SUMMARY | 2025-06-11 10:07 | XMS_ITS | Clinical Summary ---
Author Organization [facility] Address [address] [place] [address] Care Team Providers Care Porcelain Technician Name Role Phone Alejo Busby MD Primary Care Provider + [phone] David Jameson MD Unavailable [phone] Allergies No known active allergies Medications aspirin [...] needed for pain, headaches or fever. Under [place] law, monthly prescriptions (30 days) can be [...] 12.5 BID Pain 07/24/2024 Overview (07/24/2024): - [facility] Hypertension 07/24/2024 Overview (07/27/2024): - Resume [...] any time in the past 12 m [facility], were you homeless or living in a prison (including now)? No 07/25/2024 Utilities Answer Date [...] Screenings 01/23/2025 [facility]-Adult SDOH Screenings 01/23/2025 07/25/2024 [id number] Vaccine ( season) 2025 06/14/2022, 07/14/2021, 10/29/2020, [...] hyperglycemia, without long-term current use of insulin ([facility]) from Last 3 Months or Most Recently Relevant to Health Maintenance Results * (ABNORMAL) Hemoglobin A1c (06/27/2024 11:55 AM EST) Hemoglobin A1c 8.4(H) <5.7 % 06/27/2024 2:20 PM EST [facility] Blood Venous blood specimen / Unknown Venipuncture / Unknown 06/27/2024 11:55 AM EST 06/27/2024 11:56 AM EST Narrative [facility] - 06/27/2024 2:20 PM EST HA1C Interpretive Data: Diagnosis of Diabetes: Diabetic > or = 6.5% Pre-diabetic 5.7 to 6.4% Non-diabetic < or = 5.6% Glycemic Targets for Type I and Type II Diabetics: Non- Adults <7.0% Adults <6.0% Children and Adolescents <7.5% Source: [place] [employer]. Standards of medical care in diabetes,2017. Diabetes Care.2017:40 (suppl 1):S1-S135. HbA1c assay performed by an ion-exchange chromatography method that is certified traceable to the DCCT. us [facility] BLOOD ORDERABLES Final R esult [facility] [address] [place] [address] from Last 3 Months or Most Recently Relevant to Health Maintenance Insurance MEDICARE Member Subscriber Plan / Payer (Ef fective 2018-Present) Name:Krish Montes Member ID:[id number] Relation to Subscriber:Self Name:Krish Montes Subscriber ID:[id number] Payer ID:MEDICARE Group ID:Not on file Type:Medicare Address: [place] [phone] [facility] Advance Directives * Full Code (Latest Code Status on File) Date Activated Date Inactivated Comments 07/24/2024 5:39 PM 07/30/2024 4:02 PM Question Answer Comments Patient has decision-making capacity? Yes Care Teams Porcelain Technician Relationship Specialty Start Date End Date Alejo Busby MD [facility] [address] [address] PCP - General 12/25/20 David Jameson MD [address] [address] Referring Physician 06/28/24
--- NOTE | 2025-06-11 10:36 | HMH.OTEV ---
OT Evaluation Rehab OT IP Evaluation Start: 06/10/25 21:47 Freq: ONCE Status: Active Protocol: Document 06/11/25 10:33 LILLIAN (Rec: 06/11/25 10:36 LILLIAN [id number]) Rehab OT IP Assessment Subjective History Krish Montes is a 69-year-old male with a medical history significant for CABG in July 2024, hypertension, type 2 diabetes, HFrEF who presented to the ED due to concern of left lower extremity weakness and difficulty walking. Patient states he noticed this when he woke up at 5 AM this morning and unable to walk with steady gait. He states his last known normal was at 10 PM the night previous. Patient denies any trauma, low back pain, red flag symptoms. No recent medication changes, has been adherent to his medications including aspirin. Workup in the ED significant for CT head, CTA head and neck unremarkable for acute findings. CBC, CMP relatively unremarkable. Given these findings, ED provider discussed case with me and I decided to admit patient for acute CVA workup . #Acute multifocal CVA #Left lower extremity weakness ? Presented with left lower extremity weakness, brain MRI on 06/10/2025 revealed 0.4 x 0.4 cm acute infarct in the right parietal lobe and 1.4 x 0.6 cm acute infarct in the right centrum semiovale . NIHSS score 1 . Multifocal CVA concerning for embolic source, especially A-fib. ? CTA head/neck did not show LVO or other acute findings. No previous known history of CVA. ? Risk factors include diabetes, hypertension, known ASCVD/CABG. ? Started aspirin 81 mg, Plavix 75 mg, atorvastatin 40 mg given NIHSS score. DAPT for 21 days pending outpatient neurology recommendations. ? Allow permissive hypertension until 5 AM on 2024, goal < 220/120. IV labetalol 10 mg as needed. ? Follow-up hemoglobin A1c, lipid panel, TSH. ? Follow-up ECHO with bubble study. ? Follow-up bedside swallow evaluation. ? Follow-up PT/OT recommendations. ? Continuous cardiac telemetry to assess for arrhythmias. Patient lives independently in 1 story home with 1 MARK. Independent with ADLs and fx'l mobility tasks. Continues to drive. Subjective I can walk. Assessed Patient's ability to complete bed mobility, transfers, d/d shoes and fx'l mobility within the facility >200ft. Patient completed all tasks independently. no LOB noted. Good safety awareness noted. Objective Patient Orientation Person,Place,Name,Age Right Upper WFL Extremity Gross ROM Left Upper Extremity WFL Gross ROM Bed Mobility bed mobility - supine/sit Assist Level Independent Transfer Training Sit/Stand Transfer,Sit/Stand/Step Transfer,Sit/Stand/ Pivot Transfer Assist Level Independent Chair Transfer Independent Ability Chair Transfer Sit to/from Ambulatory Technique Chair Transfer None Assistive Devices Lower Body Dressing Independent Ability Upper Body Dressing Independent Ability Bathing Ability Independent Rehab OT IP prob,goals,plan Problems Date of Evaluation: 06/11/25 Rehab Potential Rehab Potential Innapropriate for Skilled Therapy Discharge Plan OT Discharge Plan Recommend patient return home after medical d/c. Patient is at baseline with ADLs and fx'l mobility tasks. Eval Complexity Eval Charge Codes 36105 - Low Complexity PHYSICIAN CERTIFICATION: I certify the specified therapy services for Krish Montes are required, authorized, and reviewed every 30 days.
[2025-06-11] MEDS: humaLOG 100 UNITS/ML 10ML VIAL (SSI) SUBCUT (11:16)
[2025-06-11 11:45] VITALS: BP 156/78; PULSE 71; RESP 18; TEMP 36.6; O2SAT 96
--- NOTE | 2025-06-11 13:28 | EXP.ACUTE.PN ---
Subjective *Date: 06/11/25 *Time: 13:28 Interval history: Patient was admitted yesterday with acute left leg weakness and difficulty walking. MRI showed an acute CVA. Chart reviewed, case discussed with Hospitalist. Patient feels much better today. He has been up walking without difficulty and is anxious to go home. Medical Exam Vital signs and Labs for Last 24 Hours: Vital Signs Temp Pulse Pulse Resp BP BP Pulse Ox 06/11/25 11:45 97.8 F 71 18 156/78 H 96 06/11/25 11:00 06/11/25 09:00 06/11/25 08:00 06/11/25 08:00 60 06/11/25 08:00 98.1 F 71 18 170/90 H 97 06/11/25 06:49 06/11/25 05:00 06/11/25 04:00 65 06/11/25 04:00 98.3 F 71 16 163/93 H 96 06/11/25 03:00 06/11/25 01:00 06/11/25 00:00 80 06/11/25 00:00 98.6 F 61 18 155/85 H 98 06/10/25 23:00 06/10/25 21:00 06/10/25 20:00 65 06/10/25 20:00 06/10/25 19:53 98.0 F 73 17 191/99 H 96 06/10/25 18:39 06/10/25 17:41 70 06/10/25 17:34 98.3 F 63 18 193/94 H 98 06/10/25 17:00 06/10/25 17:00 97.8 F 63 18 149/88 H 06/10/25 16:38 06/10/25 15:58 63 11 L 149/88 H 94 L 06/10/25 13:58 97.7 F 71 18 201/105 H 98 O2 Del Method 06/11/25 11:45 Room Air 06/11/25 11:00 Room Air 06/11/25 09:00 Room Air 06/11/25 08:00 Room Air 06/11/25 08:00 06/11/25 08:00 Room Air 06/11/25 06:49 Room Air 06/11/25 05:00 Room Air 06/11/25 04:00 06/11/25 04:00 Room Air 06/11/25 03:00 Room Air 06/11/25 01:00 Room Air 06/11/25 00:00 06/11/25 00:00 Room Air 06/10/25 23:00 Room Air 06/10/25 21:00 Room Air 06/10/25 20:00 06/10/25 20:00 Room Air 06/10/25 19:53 Room Air 06/10/25 18:39 Room Air 06/10/25 17:41 06/10/25 17:34 Room Air 06/10/25 17:00 Room Air 06/10/25 17:00 06/10/25 16:38 Room Air 06/10/25 15:58 Room Air 06/10/25 13:58 Room Air Intake and Output 06/10/25 06/11/25 06/11/25 23:59 07:59 15:59 Intake Total 250 / 250 480 / 480 Output Total 0 / 0 0 / 0 0 / 0 Balance 250 / 250 0 / 480 480 / 480 Intake: Intake, Oral Amount 480 / 480 Intake, Total IV Amount 250 / 250 Doxycycline Hyclate 100 mg In 0 250 / 250 .9 % Sodium Chloride 250 ml @ 166.667 mls/hr IV ONCE ONE Rx#: [id number] Output: Output, Urine Amount 0 / 0 0 / 0 0 / 0 Other: Number of Unmeasured Voids 1 1 1 Weight 198 lb 1.6 oz 196 lb 12.8 oz Patient Weight 06/11/25 23:59 Weight 196 lb 12.8 oz Laboratory Results - last 24 hr 06/10/25 13:58: POC Glucose 208 H 06/10/25 14:25: WBC 7.2, RBC 5.18, Hgb 16.3, Hct 47.8, MCV 92.3, MCH 31.5 H, MCHC 34.1, RDW 13.7, Plt Count 200, MPV 10.7 H, Neut % (Auto) 63.5, Lymph % (Auto) 20.9, [place] % (Auto) 9.5 H, Eos % (Auto) 5.1, Baso % (Auto) 0.6, Neut # (Auto) 4.6, Lymph # (Auto) 1.5, [place] # (Auto) 0.7, Eos # (Auto) 0.4, Baso # (Auto) 0.0, PT 10.4, INR 0.93, APTT 25.6, Sodium 133 L, Potassium 4.0, Chloride 104, Carbon Dioxide 24, Anion Gap 9.0, BUN 15, Creatinine 0.80, Estimated Creat Clear 89, Estimated GFR 95, Est GFR ( Amer) 115, Glucose 224 H, Hemoglobin A1c 8.2 H, Calcium 8.2 L, Total Bilirubin 0.4, AST 27, ALT 25, Alkaline Phosphatase 100, Troponin I < 0.01, Total Protein 6.1 L, Albumin 2.7 L, Globulin 3.4 H, Albumin/Globulin Ratio 0.8 L, Triglycerides 126, Cholesterol 131 L, LDL Cholesterol Direct 56.24 L, VLDL Cholesterol 25, HDL Cholesterol 48, Cholesterol/HDL Ratio 2.7, TSH 2.08, Plasma/Serum Alcohol < 10 06/10/25 14:51: Urine Color Yellow, Urine Appearance Clear, Urine pH 6.0, Ur Specific [place] 1.025, Urine Protein 3+ A, Urine Glucose (UA) 3+, Urine Ketones Negative, Urine Blood 1+ A, Urine Nitrate Negative, Urine Bilirubin Negative, Urine Urobilinogen 0.2, Ur Leukocyte Esterase Negative, Urine RBC Occasional, Urine WBC None, Ur Squamous Epith Cells None, Urine Bacteria Trace 06/10/25 14:53: Urine Opiates Screen Negative, Urine Methadone Screen Negative, Ur Barbituates Screen Negative, Ur Phencyclidine Scrn Negative, Ur Amphetamines Screen Negative, U Benzodiazepines Scrn Negative, Urine Cocaine Screen Negative, U Marijuana (THC) Screen Negative 06/10/25 17:52: Troponin I < 0.01 06/10/25 20:03: POC Glucose 184 H 06/10/25 20:53: Troponin I < 0.01 06/11/25 05:48: WBC 7.0, RBC 5.02, Hgb 15.7, Hct 46.6, MCV 92.8, MCH 31.3 H, MCHC 33.7, RDW 13.8, Plt Count 189, MPV 11.3 H, Neut % (Auto) 59.2, Lymph % (Auto) 23.8, [place] % (Auto) 10.3 H, Eos % (Auto) 5.2, Baso % (Auto) 0.9, Neut # (Auto) 4.1, Lymph # (Auto) 1.7, [place] # (Auto) 0.7, Eos # (Auto) 0.4, Baso # (Auto) 0.1, Sodium 136, Potassium 3.8, Chloride 105, Carbon Dioxide 26, Anion Gap 8.8, BUN 15, Creatinine 0.80, Estimated Creat Clear 86, Estimated GFR 95, Est GFR ( Amer) 115, Glucose 132 H D, Calcium 8.1 L, Magnesium 1.9, Total Bilirubin 0.6, AST 27, ALT 17 D, Alkaline Phosphatase 81, Total Protein 5.9 L, Albumin 2.7 L, Globulin 3.2, Albumin/Globulin Ratio 0.8 L, Triglycerides 74, Cholesterol 115 L, LDL Cholesterol Direct 57.05 L, VLDL Cholesterol 15, HDL Cholesterol 42, Cholesterol/HDL Ratio 2.7, TSH 2.36 06/11/25 06:02: POC Glucose 118 H I & O for Labs for Last 24 Hours: Intake & Output 06/08/25 06/09/25 06/10/25 06/11/25 23:59 23:59 23:59 23:59 Intake Total 250 / 250 480 / 480 Output Total 0 / 0 0 / 0 Balance 250 / 250 480 / 480 Weight 198 lb 1.6 oz 196 lb 12.8 oz Constitutional: Present no acute distress Respiratory: Present normal respiratory effort Cardiac: Present Reg Rate and Rhythm GI: Present normal bowel sounds; Absent tenderness Extremities: Present normal inspection and full ROM Skin: Present intact; Absent erythema Neuro: Present Grossly Intact and moves all extremities Assessment and Plan *Assessment and plan (1) CVA (cerebral vascular accident): Status: Acute Category: Medical Code(s): I63.9 - Cerebral infarction, unspecified (2) Left leg weakness: Status: Acute Category: Medical Code(s): R29.898 - Other symptoms and signs involving the musculoskeletal system (3) Disequilibrium: Status: Acute Category: Medical Code(s): R42 - Dizziness and giddiness (4) Coronary artery disease: Status: Chronic Qualifiers: Coronary Disease-Associated Artery/Lesion type: [place] artery [place] vs. transplanted heart: [place] heart Associated angina: without angina Qualified Code(s): I25.10 - Atherosclerotic heart disease of [place] coronary artery without angina pectoris Category: Medical Code(s): I25.10 - Atherosclerotic heart disease of [place] coronary artery without angina pectoris (5) Hypothyroidism: Status: Acute Category: Medical Code(s): E03.9 - Hypothyroidism, unspecified (6) Chronic systolic CHF (congestive heart failure), NYHA class 2: Status: Chronic Category: Medical Code(s): I50.22 - Chronic systolic (congestive) heart failure (7) Renal insufficiency: Status: Chronic Category: Medical Code(s): N28.9 - Disorder of kidney and ureter, unspecified (8) HHD (hypertensive heart disease): Status: Chronic Qualifiers: Heart failure presence: with heart failure Heart failure type: systolic Heart failure chronicity: chronic Qualified Code(s): I11.0 - Hypertensive heart disease with heart failure Category: Medical Code(s): I11.9 - Hypertensive heart disease without heart failure (9) Diabetes: Status: Chronic Qualifiers: Diabetes mellitus type: type 2 Diabetes mellitus mcfp insulin use: with rodent exterminator use Diabetes mellitus complication status: without complication Qualified Code(s): E11.9 - Type 2 diabetes mellitus without complications; Z79.4 - superintendent terminal (current) use of insulin Category: Medical Code(s): E11.9 - Type 2 diabetes mellitus without complications (10) Ischemic cardiomyopathy: Status: Chronic Category: Medical Code(s): I25.5 - Ischemic cardiomyopathy (11) Hypertensive disorder: Status: Chronic Qualifiers: Hypertension type: essential hypertension Qualified Code(s): I10 - Essential (primary) hypertension Category: Medical Code(s): I10 - Essential (primary) hypertension Plan OK to discharge home today with Aspirin and Plavix. Plan office f/u in 1 week.
--- NOTE | 2025-06-12 08:00 | EXP.DC.SUM ---
General Admission date:: 06/10/25 Discharge date: 06/11/25 HPI HPI HPI: Krish Montes is a 69-year-old male with a medical history significant for CABG in July 2024, hypertension, type 2 diabetes, HFrEF who presented to the ED due to concern of left lower extremity weakness and difficulty walking. Patient states he noticed this when he woke up at 5 AM this morning and unable to walk with steady gait. He states his last known normal was at 10 PM the night previous. No other focal deficits. No previous history of known CVA. Patient denies any trauma, low back pain, red flag symptoms. No recent medication changes, has been adherent to his medications including aspirin. Workup in the ED significant for CT head, CTA head and neck unremarkable for acute findings. CBC, CMP relatively unremarkable. Given these findings, ED provider discussed case with me and I decided to admit patient for acute CVA workup. Hospital Course Hospital Course Hospital Course: The patient was admitted and an MRI was performed. It did reveal an acute infarct in the right parietal lobe and an acute infarct in the right centrum semiovale. The patient was started on aspirin and Plavix along with atorvastatin. He will need outpatient neurology evaluation. It was felt he would need a follow-up echo with bubble study, follow-up bedside evaluation, follow-up PT and OT evaluation, and continuous cardiac telemetry to assess for arrhythmias. A CTA of his neck revealed heterogenous thyroid nodules therefore a thyroid ultrasound was also ordered. By 06/11/2025, the patient felt much better and was up walking without difficulty and was anxious to go home. It was felt he was stable to be discharged home on aspirin and Plavix. His echo showed an LVEF of 40% with mild RV dilatation and mild reduction in RV function. There was mild biatrial dilatation and mild AI as well as mild MR. The thyroid ultrasound showed a TR 5 lesion in the right lobe and it was recommended by radiology that the patient have an ultrasound-guided biopsy. The patient will follow-up in the office of [facility]. Exam Data for Last 24 hours Vital signs and Labs for Last 24 Hours: Temp Pulse Resp BP Pulse Ox O2 Del Method 97.8 F 71 18 156/78 H 96 Room Air 06/11/25 11:45 06/11/25 11:45 06/11/25 11:45 06/11/25 11:45 06/11/25 11:45 06/11/25 13:00 I & O for Last 24 hours: Intake & Output 06/09/25 06/10/25 06/11/25 06/12/25 11:59 11:59 11:59 11:59 Intake Total 730 / 730 Output Total 0 / 0 Balance 730 / 730 Weight 196 lb 12.8 oz Narrative: Constitutional Constitutional: no acute distress and obese *Routine HEENT Exam Head: Present normocephalic Eye: Present EOMI and PERRL ENT: Present mucous membranes moist *Routine Neck Exam Neck: Present supple; Absent lymphadenopathy *Routine Respiratory Exam Respiratory: Present CTA bilaterally *Routine Cardiovascular Exam Cardiovascular: Present RRR *Routine Abdominal Exam Abdominal: Present soft and normoactive bowel sounds; Absent tenderness *Routine Rectal Exam Rectal:: deferred *Routine Genitalia Exam Genitalia:: deferred *Routine Extremities Exam Extremities: Absent cyanosis, clubbing or edema *Routine Skin Exam Skin: Present warm; Absent rash *Routine Neurological Exam Neurological: Present alert and oriented X3 Comments: Left lower extremity 4/5 strength. DS: Diagnosis Discharge Diagnosis (1) CVA (cerebral vascular accident): Status: Acute Code(s): I63.9 - Cerebral infarction, unspecified (2) Left leg weakness: Status: Acute Code(s): R29.898 - Other symptoms and signs involving the musculoskeletal system (3) Disequilibrium: Status: Acute Code(s): R42 - Dizziness and giddiness (4) Coronary artery disease: Status: Chronic Code(s): I25.10 - Atherosclerotic heart disease of [place] coronary artery without angina pectoris Qualifiers: Associated angina: without angina Coronary Disease-Associated Artery/Lesion type: [place] artery [place] vs. transplanted heart: [place] heart Qualified Code(s): I25.10 - Atherosclerotic heart disease of [place] coronary artery without angina pectoris (5) Hypothyroidism: Status: Acute Code(s): E03.9 - Hypothyroidism, unspecified (6) Chronic systolic CHF (congestive heart failure), NYHA class 2: Status: Chronic Code(s): I50.22 - Chronic systolic (congestive) heart failure (7) Renal insufficiency: Status: Chronic Code(s): N28.9 - Disorder of kidney and ureter, unspecified (8) HHD (hypertensive heart disease): Status: Chronic Code(s): I11.9 - Hypertensive heart disease without heart failure Qualifiers: Heart failure chronicity: chronic Heart failure presence: with heart failure Heart failure type: systolic Qualified Code(s): I11.0 - Hypertensive heart disease with heart failure (9) Diabetes: Status: Chronic Code(s): E11.9 - Type 2 diabetes mellitus without complications Qualifiers: Diabetes mellitus complication status: without complication Diabetes mellitus intermediate card tender insulin use: with intermediate card tender use Diabetes mellitus type: type 2 Qualified Code(s): E11.9 - Type 2 diabetes mellitus without complications; Z79.4 - half-way (current) use of insulin (10) Ischemic cardiomyopathy: Status: Chronic Code(s): I25.5 - Ischemic cardiomyopathy (11) Hypertensive disorder: Status: Chronic Code(s): I10 - Essential (primary) hypertension Qualifiers: Hypertension type: essential hypertension Qualified Code(s): I10 - Essential (primary) hypertension Meds Home Medications and Allergies Home Medications ?Medication ?Instructions ?Recorded ?Confirmed ?Type aspirin 81 mg tablet,delayed 81 mg PO DAILY 08/15/17 06/11/25 History release atorvastatin 80 mg tablet 80 mg PO HS 08/15/17 06/11/25 History gabapentin 300 mg capsule 300 mg PO BID 04/09/19 06/11/25 History amlodipine 5 mg tablet 5 mg PO DAILY 10/29/24 06/11/25 History cholecalciferol (vitamin D3) 25 75 mcg PO DAILY 06/11/25 06/11/25 History mcg (1,000 unit) tablet clopidogrel 75 mg tablet 75 mg PO DAILY 06/11/25 06/11/25 History ezetimibe 10 mg tablet 10 mg PO DAILY 06/11/25 06/11/25 History insulin glargine 100 unit/mL (3 55 unit SQ HS 06/11/25 06/11/25 History mL) subcutaneous pen (Basaglar KwikPen U-100 Insulin) isosorbide mononitrate 30 mg 30 mg PO DAILY 06/11/25 06/11/25 History tablet,extended release 24 hr sacubitril 49 mg-valsartan 51 mg 1 tab PO BID 06/11/25 06/11/25 History tablet (Entresto) New Prescriptions to Start Prescriptions: Allergies Allergy/AdvReac Type Severity Reaction Status Date / Time No Known Allergies Allergy Verified 06/10/25 13:36 Discharge Plan Disposition Patient Disposition: Home, Self-Care Condition: Fair Discharge Order Discharge Orders: Discharge Order (Routine); Ordered 06/11/25 Ordered By: Alejo Busby Follow up Plan Follow up with: Alejo Busby MD [Primary Care Provider, Medical] - 06/18/25 10:30 am Prescriptions/Medication Reconciliation: Continued aspirin 81 mg tablet,delayed release (DR/EC) 81 mg PO DAILY atorvastatin 80 mg tablet 80 mg PO HS amlodipine 5 mg tablet 5 mg PO DAILY Patient Comments: TAKE ONE TABLET BY MOUTH EVERY DAY gabapentin 300 MG capsule 300 mg PO BID Patient Comments: TAKE 1 CAPSULE BY MOUTH TWICE DAILY MAY CAUSE DROWSINESS isosorbide mononitrate 30 mg tablet extended release 24 hr 30 mg PO DAILY Patient Comments: TAKE ONE TABLET BY MOUTH EVERY DAY cholecalciferol (vitamin D3) 25 mcg (1,000 unit) tablet 75 mcg PO DAILY Patient Comments: TAKE THREE TABLETS BY MOUTH EVERY DAY insulin glargine [Basaglar KwikPen U-100 Insulin] 100 unit/mL (3 mL) insulin pen 55 unit SQ HS Patient Comments: INJECT 55 units SUBCUTANEOUSLY EVERY DAY AT BEDTIME clopidogrel 75 mg tablet 75 mg PO DAILY ezetimibe 10 mg tablet 10 mg PO DAILY sacubitril-valsartan [Entresto] 49-51 mg Tablet 1 tab PO BID Problem Reconciliation Problems Reviewed?: Yes Patient Discharge Instructions ACTIVITY: Continue current activity DIET: continue same diet Patient Instructions: DI for Ischemic Stroke Print Language: [place] Providers Primary Care Provider: Alejo Busby Admit Provider: Sergo Wright Attending Provider: Alejo Busby
--- NOTE | 2025-06-12 10:49 | SW/DCPLANNER ---
Spoke with patient on the phone. Patient stated that he is doing good. Patient stated that he is aware of his upcoming appointment. Patient stated that he was not prescribed any new medicine. Patient stated that he has no concerns or questions at this time. Marie Abbasi
== END 2025-06-11 14:10 | disposition home or self-care (01) | DRG 65 ==
LOC: ER 16:23 → 2ND 16:29
PROVIDERS: Admitting Provider Student in an Organized Health Care Education/Training Program; Emergency Provider Emergency Medicine; PCP Family Medicine; Visit Provider Family Medicine
DX: I63.9 Cerebral infarction, unspecified (principal); I50.22 Chronic systolic (congestive) heart failure; I11.0 Hypertensive heart disease with heart failure; E11.9 Type 2 diabetes mellitus without complications; I25.10 Atherosclerotic heart disease of native coronary artery without angina pectoris; E04.2 Nontoxic multinodular goiter; I08.0 Rheumatic disorders of both mitral and aortic valves; E03.9 Hypothyroidism, unspecified; G83.14 Monoplegia of lower limb affecting left nondominant side; N28.9 Disorder of kidney and ureter, unspecified; I25.5 Ischemic cardiomyopathy; I45.10 Unspecified right bundle-branch block; R29.701 NIHSS score 1; R42 Dizziness and giddiness; Z95.1 Presence of aortocoronary bypass graft; Z79.82 Long term (current) use of aspirin; Z79.02 Long term (current) use of antithrombotics/antiplatelets; Z79.4 Long term (current) use of insulin; Z79.84 Long term (current) use of oral hypoglycemic drugs; Z79.899 Other long term (current) drug therapy
CPT/HCPCS: 36415; 70450; 70496; 70498; 70551; 76536; 80053; 80061; 80307; 80320; 81001; 82962; 83036; 83735; 84443; 84484; 85025; 85610; 85730; 93005; 93306; 97162; 97165; 99285; J1650; J7050; Q9967

== ENCOUNTER 2025-06-30 09:15 | Outpatient (CLI) | payer MEDICARE, OTHER, SELFPAY | END 2025-06-30 23:59 | disposition home or self-care (01) | LOC: RT 09:16 | PROVIDERS: PCP Family Medicine; Visit Provider Physician Assistant | DX: I48.0 Paroxysmal atrial fibrillation (principal); I63.89 Other cerebral infarction | CPT/HCPCS: 93270 ==